=== PATIENT | male | born 1975 | race Caucasian/White ===

== ENCOUNTER 2019-04-28 17:08 | Emergency (ER) | payer SELFPAY ==
[2019-04-28 17:36] VITALS: BP 121/90; PULSE 105; RESP 16; TEMP 37.1; O2SAT 99; BMI 28.7
--- NOTE | 2019-04-28 17:50 | CTR_ITS ---
PROCEDURE INFORMATION: Exam: CT Head Without Contrast Exam date and time: 04/28/2019 6:01 PM Age: 43 years old Clinical indication: Other: Seizures; Additional info: Unknown TECHNIQUE: Imaging protocol: Computed tomography of the head without contrast. Total DLP: 896.72 mGy-cm Radiation optimization: All CT scans at this facility use at least one of these dose optimization techniques: automated exposure control; mA and/or kV adjustment per patient size (includes targeted exams where dose is matched to clinical indication); or iterative reconstruction. COMPARISON: No relevant prior studies available. FINDINGS: Brain: Normal. No hemorrhage. Unremarkable white matter. No mass effect. Ventricles: Normal. No ventriculomegaly. Bones/joints: Unremarkable. No acute fracture. Sinuses: Visualized sinuses are unremarkable. No fluid levels. Mastoid air cells: Visualized mastoid air cells are well aerated. Soft tissues: Unremarkable. CT/CT head wo con* [id number] IMPRESSION: No acute intracranial abnormality. Radiation Dose CTDIVOL = (mGy): DLP = 896.72 (mGy-cm)
[2019-04-28 18:00] LABS: Hematocrit 49.4 % (42.0-52.0); Hemoglobin 16.2 g/dL (11.7-16.6); Mean Corpuscular HGB Conc 32.8 g/dL (30.0-36.0); Mean Corpuscular Volume 97.4 fL (80-94); Platelet Count 360 10^3/cmm (130-400); Red Blood Count 5.07 10^6/uL (4.1-5.3); Red Cell Distribution Width 12.5 % (12.1-15.1); White Blood Count 12.8 10^3/uL (4.0-10.0)
[2019-04-28 18:40] LABS: Alanine Aminotransferase 28 U/L (0-41); Albumin Level 4.7 g/dL (3.5-5.2); Alkaline Phosphatase 108 IU/L (40-130); Anion Gap 16.3 (5-19); Aspartate Amino Transferase 44 U/L (0-40); Blood Urea Nitrogen 20 mg/dL (6-20); Calcium 9.9 mg/Dl (8.6-10.0); Carbon Dioxide 29 mmol/L (22-29); Chloride 100 mmol/L (98-107); Globulin 3.4 g/dL (1.3-4.6); Glomerular Filtration Rate 73.1 mL/min (90-130); Glucose 107 mg/dL (74-109); Potassium 4.3 mmol/L (3.5-5.1); Sodium 141 mmol/L (136-145); Total Bilirubin 0.2 mg/dL (0.15-1.2); Total Protein 8.1 g/dL (6.6-8.7)
[2019-04-28 20:26] LABS: Absolute Eosinophils 0.1 10^3/cmm (0.0-0.7); Absolute Segmented Neutrophil 7.6 10/cmm (1.6-7.1); Eosinophils 1 %; Lymphocytes 29 %; Monocytes Absolute 1.3 10^3/cmm (0.1-0.6); Segmented Neutrophils 60 %; Total Cells Counted 100 (0-100)
[2019-04-28 20:27] LABS: Platelet Estimate Normal (Normal)
[2019-04-28 22:40] VITALS: BP 172/94; PULSE 105; RESP 18; O2SAT 100
--- NOTE | 2019-04-28 23:05 | ED_ITS ---
HPI - Seizure General: Chief Complaint: Seizure Stated Complaint: possible seizure Time Seen by Provider: 04/28/19 23:05 History of Present Illness: MD complaint: seizure, possible seizure and other (pt states that his muscles tighten up unpredictabley and they hurt after) Seizure History: No Place: Home Associated symptoms: Deny chest pain, chills, fever(s), malaise or rash Review of Systems Const: Denies: fever, chills, body aches or malaise Eyes: Denies: change in vision or blurry vision ENMT: Denies: throat pain or nasal congestion Card: Denies: chest pain or shortness of breath on exertion Resp: Denies: shortness of breath, productive cough or non-productive cough GI: Denies: abdominal pain, nausea or vomiting : Denies: difficulty urinating Musc: Reports: other (muscle spasms that last less than a minute); Denies: extremity pain Skin/Breast: Denies: rash Neuro: Denies: headache Psych: Reports: anxiety (last 4 months since left him, these spasms have happened since them); Denies: depression Aris/Lymph: Denies: easy bruising PFSH ED PFSH: Statuses (acute, chronic, etc) shown below reflect problem list status as previously entered and may not be historically accurate Social History Smoking and tobacco status: former smoker Physical Exam Const: COMMON NORMALS: no apparent distress, average body habitus, oriented x3 and alert HENMT: COMMON NORMALS: normocephalic HEAD & SCALP: normal to inspection and normocephalic FACE & SINUS: normal facial exam Eye: COMMON NORMALS: conjunctivae normal GENERAL EYE: normal appearance of both eyes CONJUNCTIVA: Yes conjunctivae normal Neck/C-Spine: COMMON NORMALS: no JVD Chest: COMMONS NORMALS: inspection of chest normal Resp: COMMON NORMALS: normal respiratory effort and clear to auscultation bilaterally AUSCULTATION: clear to auscultation bilaterally Cardio: COMMON NORMALS: no JVD, regular rate and regular rhythm RATE: regular rate RHYTHM: regular rhythm GI: COMMON NORMALS: normal to inspection, nondistended, normoactive bowel sounds Extremity: COMMON NORMALS: normal to inspection and full ROM Neuro: COMMON NORMALS: oriented x3 and moves all extremities SENSORIUM/ORIENTATION: Yes alert CRANIAL NERVES: Yes CN normal except as noted GAIT: Yes normal gait MOTOR EXAM: strength 5/5 throughout Course Vital Signs: Vital signs: Vital Signs Temperature 98.7 F 04/28/19 17:36 Pulse Rate 105 H 04/28/19 22:40 Respiratory Rate 18 04/28/19 22:40 Blood Pressure 172/94 04/28/19 22:40 Pulse Oximetry 100 04/28/19 22:40 MDM - Seizure MDM Narrative: Medical decision making narrative: [place] [address] CT Scan Report Signed Patient: Ricci Brock JR MR#: [id number] : 1975 Acct:[id number] Age/Sex: 43 / M ADM Date: 04/28/19 Loc: ER Attending Dr: Ordering Physician: Lucas Ashraf DO Date of Service: 04/28/19 Procedure(s): CT head wo con* [id number] Accession Number(s): [id number] cc: Lucas Ashraf DO PROCEDURE INFORMATION: Exam: CT Head Without Contrast Exam date and time: 04/28/2019 6:01 PM Age: 43 years old Clinical indication: Other: Seizures; Additional info: Unknown TECHNIQUE: Imaging protocol: Computed tomography of the head without contrast. Total DLP: 896.72 mGy-cm Radiation optimization: All CT scans at this facility use at least one of these dose optimization techniques: automated exposure control; mA and/or kV adjustment per patient size (includes targeted exams where dose is matched to clinical indication); or iterative reconstruction. COMPARISON: No relevant prior studies available. FINDINGS: Brain: Normal. No hemorrhage. Unremarkable white matter. No mass effect. Ventricles: Normal. No ventriculomegaly. Bones/joints: Unremarkable. No acute fracture. Sinuses: Visualized sinuses are unremarkable. No fluid levels. Mastoid air cells: Visualized mastoid air cells are well aerated. Soft tissues: Unremarkable. CT/CT head wo con* [id number] IMPRESSION: No acute intracranial abnormality. Radiation Dose CTDIVOL = (mGy): DLP = 896.72 (mGy-cm) Dictated By: Janice Chavez 04/28/19 1934 Signed By: Janice Chavez 04/28/19 [id number] Lab Data: Labs: Lab Results 04/28/19 04/28/19 Range/Units 17:55 17:55 WBC 12.8 H (4.0-10.0) 10^3/ uL RBC 5.07 (4.1-5.3) 10^6/u L Hgb 16.2 (11.7-16.6) g/dL Hct 49.4 (42.0-52.0) % MCV 97.4 H (80-94) fL MCH 32.0 (28.0-34.0) pg MCHC 32.8 (30.0-36.0) g/dL RDW 12.5 (12.1-15.1) % Plt Count 360 (130-400) 10^3/c mm MPV 9.0 (7.4-10.4) fL Total Counted 100 (0-100) Segmented Neutroph ils 60 % Lymphocytes (Manua l) 29 % Monocytes (Manual) 10.0 % Absolute Monocytes 1.3 H (0.1-0.6) 10^3/c mm Eosinophils (Manua l) 1 % Absolute Eosinophi ls 0.1 (0.0-0.7) 10^3/c mm Platelet Estimate Normal (Normal) Sodium 141 (136-145) mmol/L Potassium 4.3 (3.5-5.1) mmol/L Chloride 100 (98-107) mmol/L Carbon Dioxide 29 (22-29) mmol/L Anion Gap 16.3 (5-19) BUN 20 (6-20) mg/dL Creatinine 1.1 (0.7-1.2) mg/dL GFR Calculation 73.1 L (90-130) mL/min Glucose 107 (74-109) mg/dL Calcium 9.9 (8.6-10.0) mg/Dl Total Bilirubin 0.2 (0.15-1.2) mg/dL AST 44 H (0-40) U/L ALT 28 (0-41) U/L Alkaline Phosphata se 108 (40-130) IU/L Total Protein 8.1 (6.6-8.7) g/dL Albumin 4.7 (3.5-5.2) g/dL Globulin 3.4 (1.3-4.6) g/dL Discharge Plan Discharge Patient Disposition: Home, Self-Care Clinical Impression: Anxiety Condition: Stable Discharge Activity: Resume usual activity Coding Level of Care Code ED Community Fundraiser for Nawaf Fwcathi Exam Problem Focused
[2019-04-28] MEDS: LORazepam 1 mg Tablet PO (23:36)
[2019-04-29 00:46] VITALS: BP 150/84; PULSE 89; RESP 17; TEMP 36.6; O2SAT 99
== END 2019-04-29 00:49 | disposition home or self-care (01) ==
PROVIDERS: Family Medicine; Emergency Provider Nurse Practitioner Family
DX: F41.9 Anxiety disorder, unspecified (principal); Z87.891 Personal history of nicotine dependence
CPT/HCPCS: 36415; 70450; 80053; 85007; 85027; 99283

== ENCOUNTER 2019-05-24 09:47 | Emergency (ER) | payer SELFPAY ==
[2019-05-24 09:58] VITALS: BMI 30.1
--- NOTE | 2019-05-24 10:22 | W.ED.PSYCH ---
HPI - Psych General: Chief Complaint: Psychiatric Symptoms Stated Complaint: MHE Time Seen by Provider: 05/24/19 10:08 Review of Systems Const: Denies: fever, chills, body aches, change in appetite, fatigue or malaise ENMT: Denies: throat pain, ear pain, nasal discharge or nasal congestion Card: Denies: chest pain, edema, shortness of breath on exertion or shortness of breath when lying down Resp: Denies: shortness of breath, productive cough or non-productive cough GI: Denies: abdominal pain, nausea, vomiting, vomiting blood, coffee grounds in vomit, diarrhea, constipation, bloating, blood in stool or black tarry stool : Denies: flank pain, painful urination, urinary frequency or urinary urgency Skin/Breast: Denies: rash or itching PFSH ED PFSH: Statuses (acute, chronic, etc) shown below reflect problem list status as previously entered and may not be historically accurate Social History Smoking and tobacco status: former smoker Physical Exam Const: COMMON NORMALS: average body habitus, oriented x3 and alert GENERAL APPEARANCE: cooperative, comfortable, well kempt and well developed NUTRITIONAL APPEARANCE: obese ORIENTATION/CONSCIOUSNESS: Yes awake, Yes oriented to person and Yes oriented to place HENMT: COMMON NORMALS: normocephalic, head/scalp atraumatic, EAC's normal, TM's normal bilaterally, external nose normal, moist oral mucous membranes and oropharynx normal HEAD & SCALP: normocephalic and atraumatic NOSE: external nose normal EXTERNAL AUDITORY CANAL: EAC's normal TYMPANIC MEMBRANE: TM's normal bilaterally MOUTH: oral and palatal mucosa normal, lip normal and tongue normal THROAT: posterior oropharynx normal and tonsils normal Eye: COMMON NORMALS: PERRL, EOMs intact bilaterally, conjunctivae normal and no scleral icterus CONJUNCTIVA: Yes conjunctivae normal PUPIL: Yes PERRL Neck/C-Spine: COMMON NORMALS: full ROM, no lymphadenopathy, supple, no meningeal signs and thyroid normal THYROID: thyroid normal and asymmetrical Lymph: LYMPHATIC: no lymphadenopathy noted Resp: COMMON NORMALS: normal respiratory effort, no retractions, no use of accessory muscles and clear to auscultation bilaterally AUSCULTATION: clear to auscultation bilaterally Cardio: COMMON NORMALS: regular rate and regular rhythm RATE: regular rate RHYTHM: regular rhythm HEART SOUNDS: no murmurs GI: COMMON NORMALS: normal to inspection, nondistended, normoactive bowel sounds, soft to palpation and no hepatosplenomegaly PALPATION: Yes soft and Yes no hepatosplenomegaly : COMMON NORMALS: Yes no CVA tenderness BLADDER/KIDNEY EXAM: Yes no CVA tenderness Back/Pelvis: COMMON NORMALS: no CVA tenderness LUMBAR SPINE/LOWER BACK: Yes normal to inspection Extremity: COMMON NORMALS: no clubbing, cyanosis or edema, no calf tenderness and no pedal edema Neuro: COMMON NORMALS: oriented x3 SENSORIUM/ORIENTATION: Yes alert, Yes oriented to person and Yes oriented to place MENINGEAL SIGNS: Yes no meningeal signs Psych: APPEARANCE: Yes well kempt Skin: COMMON NORMALS: no rashes or lesions noted and skin turgor normal GENERAL SKIN EXAM: no rashes or lesions noted and turgor normal Discharge Plan Discharge Patient Disposition: Home, Self-Care Clinical Impression: Headache, variant migraine, Anxiety, Complex partial seizure Condition: Stable Prescriptions: No Action No Known Home Medications RF: 0 Discharge Orders: Discharge Order (Routine); Ordered 05/24/19 Ordered By: Lucas Ashraf Referrals: Iam Jackson MD [Primary Care Provider] - Discharge Diet: Usual diet Discharge Activity: Resume usual activity Activity Restrictions/Additional Instructions: Case management will make arrangements for you to see neurology for seizures. They will also set you up for a sleep deprived EEG. Additionally they will make an appointment for behavioral health for help with anxiety. Discharge Date/Time: 05/24/19 11:26 Coding Level of Care Code ED [employer] Coordinator for Nawaf Patterson
[2019-05-24 10:29] LABS: Add Urine Microscopic? NO
[2019-05-24 10:30] VITALS: O2SAT 98
--- NOTE | 2019-05-24 10:32 | PC.NURSE ---
Patient reports he is anxious, no thoughts of SI/HI. Patient reports seizures as well, last yesterday.
[2019-05-24 10:36] LABS: Bilirubin Urine Neg (NEGATIVE); Blood Urine Neg (Negative); Glucose Urine UA Norm (Normal); Ketones Urine Negative (Negative); Leukocyte Esterase Urine Negative (Negative); Nitrate Urine Negative (Negative); Protein Urine Neg (Negative); Urine Appearance Clear (CLEAR); Urine Color Yellow (Yellow); Urobilinogen Urine 1 mg/dL (Negative)
[2019-05-24 10:39] LABS: Basophils # 0.1 10^3/uL (0.0-0.1); Basophils % 1.7 %; Eosinophils # 0.5 10^3/uL (0.0-0.8); Eosinophils % 5.8 %; Hematocrit 46.1 % (42.0-52.0); Hemoglobin 15.2 g/dL (11.7-16.6); Lymphocytes # 2.5 10^3/uL (0.8-4.8); Lymphocytes % 30.7 %; Mean Corpuscular Hemoglobin 30.3 pg (28.0-34.0); Mean Platelet Volume 9.1 fL (7.4-10.4); Monocytes # 0.7 10^3/uL (0.2-0.9); Monocytes % 8.8 %; Neutrophils # 4.3 10^3/uL (1.8-7.7); Neutrophils % 52.8 %; Nucleated Red Blood Cells % 0 %; Platelet Count 374 10^3/cmm (130-400); Red Blood Count 5.01 10^6/uL (4.1-5.3); Red Cell Distribution Width 11.7 % (12.1-15.1); White Blood Count 8.1 10^3/uL (4.0-10.0)
[2019-05-24 10:51] LABS: Barbiturates Screen Urine Negative (Negative); Benzodiazepines Screen Urine Negative (Negative); Cocaine Screen Urine Negative (Negative); Opiate Screen Urine Negative (Negative); PCP Screen Urine Negative (Negative); THC Screen Urine Positive (Negative)
[2019-05-24 10:55] LABS: Amphetamines Screen Urine Positive (Negative)
[2019-05-24 11:03] LABS: Acetaminophen < 5.0 ug/mL (10-30); Alanine Aminotransferase 18 U/L (0-41); Albumin Level 4.6 g/dL (3.5-5.2); Alcohol Level < 10 mg/dL (0-10); Alkaline Phosphatase 97 IU/L (40-130); Anion Gap 14.7 (5-19); Aspartate Amino Transferase 41 U/L (0-40); Blood Urea Nitrogen 13 mg/dL (6-20); Calcium 9.5 mg/dL (8.5-10.5); Carbon Dioxide 27 mmol/L (22-29); Chloride 101 mmol/L (98-107); Globulin 3.2 g/dL (1.3-4.6); Glomerular Filtration Rate 92.1 mL/min (90-130); Glucose 117 mg/dL (74-109); Potassium 4.7 mmol/L (3.5-5.1); Salicylate < 0.3 mg/dL (3-10); Sodium 138 mmol/L (136-145); Thyroid Stimulating Hormone 1.49 uIU/mL (0.27-4.20); Total Bilirubin 0.3 mg/dL (0.15-1.2); Total Protein 7.8 g/dL (6.6-8.7)
[2019-05-24 11:25] VITALS: BP 135/87; PULSE 92; RESP 20; O2SAT 99
--- NOTE | 2019-05-24 15:42 | DCPLANNER ---
manager training and development was asked to schedule a outpatient sleep deprived EEG for patient, a follow up appointment with Dr. Franks, and to see if patient has a follow up appointment for patient with [facility] scheduled. manager training and development called the office of Dr. Franks, spoke with Jade, a sleep deprived EEG was scheduled for April at 8:00. manager training and development faxed order to Dr. Proctor office. A follow up appointment with Dr. Franks is scheduled for Sunday, July 14, 2019 at 10:[address] Franks. manager training and development called [facility], spoke with Natalie in scheduling, was told that patient did complete his initial assessment, and a follow up appointment is scheduled for patient for Saturday, June 08, 2019 at 8:[address] Segovia. manager training and development called patients makedachar Geni, at [phone], and gave her the appointment information.
--- NOTE | 2019-05-27 14:51 | DCPLANNER ---
Patient did attend appointment scheduled for 05.27.19 for a sleep deprived EEG.
--- NOTE | 2019-06-18 15:36 | DCPLANNER ---
Patient did attend appointment with Dr. Franks. Patient did not attend appointment with [facility].
== END 2019-05-24 11:26 | disposition home or self-care (01) ==
PROVIDERS: Emergency Provider Family Medicine; PCP Family Medicine
DX: G40.209 Localization-related (focal) (partial) symptomatic epilepsy and epileptic syndromes with complex partial seizures, not intractable, without status epilepticus (principal); F41.9 Anxiety disorder, unspecified; G43.809 Other migraine, not intractable, without status migrainosus; Z87.891 Personal history of nicotine dependence
CPT/HCPCS: 36415; 80053; 80307; 81003; 84443; 85025; 99282

== ENCOUNTER → 2019-05-27 08:00 | Outpatient (BNVA) | payer SELFPAY | PROVIDERS: PCP Family Medicine; Referring Provider Family Medicine; Visit Provider Specialist | DX: G40.909 Epilepsy, unspecified, not intractable, without status epilepticus (principal); G40.209 Localization-related (focal) (partial) symptomatic epilepsy and epileptic syndromes with complex partial seizures, not intractable, without status epilepticus | CPT/HCPCS: 95816 ==

== ENCOUNTER → 2019-06-07 10:33 | Outpatient (BNVA) | payer SELFPAY | PROVIDERS: PCP Family Medicine; Referring Provider Family Medicine; Visit Provider Specialist | DX: G40.909 Epilepsy, unspecified, not intractable, without status epilepticus (principal); G43.711 Chronic migraine without aura, intractable, with status migrainosus | CPT/HCPCS: 99204; 99214 ==

== ENCOUNTER 2019-06-14 14:50 | Outpatient (CLI) | payer SELFPAY ==
--- NOTE | 2019-06-14 15:15 | MR_ITS ---
WS: [id number] MRI BRAIN WITHOUT CONTRAST HISTORY: seizure events COMPARISON: None available. TECHNIQUE: Diffusion imaging, multiplanar T1, T2 and FLAIR imaging obtained. High resolution coronal imaging of the temporal lobes. No evidence for acute infarct or hemorrhage. Ryan-white matter differentiation is normal. No remote or acute infarcts are volume loss. Temporal lobes are symmetric bilaterally without volume loss. Ventricles and extra-axial spaces are normal. No inferior displacement of cerebellar tonsils. The sella turcica and pituitary gland are unremarkabl e. Posterior fossa is also unremarkable. Dural venous sinuses and [place] demonstrate no abnormality on this unenhanced studies. Paranasal sinuses: Tiny polyp or mucous retention cyst in the anterior LEFT maxillary sinus. Mastoid air cells: Normal. Calvarium and scalp: Intact. MR/MR head wo con* [id number] IMPRESSION: 1. Unremarkable noncontrast MRI brain. 2. Symmetric appearance of the hippocampal formations.
== END 2019-06-14 14:51 | disposition home or self-care (01) ==
PROVIDERS: PCP Family Medicine; Visit Provider Specialist
DX: R56.9 Unspecified convulsions (principal)
CPT/HCPCS: 70551

== ENCOUNTER 2019-07-04 21:19 | Emergency (ER) | payer SELFPAY ==
[2019-07-04 21:19] VITALS: BP 161/104; PULSE 72; RESP 18; TEMP 37.1; O2SAT 96; BMI 28.7
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
--- NOTE | 2019-07-04 21:49 | CTR_ITS ---
PROCEDURE INFORMATION: Exam: CT Cervical Spine Without Contrast Exam date and time: 07/04/2019 10:09 PM Age: 43 years old Clinical indication: Injury or trauma; Initial encounter; Blunt trauma; Patient HX: Seizure causing PT to fall from single story roof landing on R side on concrete +loc TECHNIQUE: Imaging protocol: Computed tomography images of the cervical spine without contrast. Total DLP: 719.85 mGy-cm Radiation optimization: All CT scans at this facility use at least one of these dose optimization techniques: automated exposure control; mA and/or kV adjustment per patient size (includes targeted exams where dose is matched to clinical indication); or iterative reconstruction. COMPARISON: No relevant prior studies available. FINDINGS: Vertebrae: On axial CT images, no definite acute fracture is visible. Sagittal and coronal reconstructions show no fracture or subluxation. Mild to moderate degenerative disc changes and facet joint arthritis at several levels. Discs/Spinal canal/Neural foramina: No definite/significant disc herniation by CT, MRI could be more sensitive if clinically indicated. Lungs: No significant acute abnormality in the upper lungs. CT/CT cervical spin wo con* [id number] IMPRESSION: 1. No definite acute fracture or subluxation by CT. 2. Other findings discussed above. Radiation Dose CTDIVOL = (mGy): DLP = 719.85 (mGy-cm)
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
[2019-07-04 22:02] VITALS: RESP 16
[2019-07-04] MEDS: sodium chloride 0.9% 1,000 ML 999 ML IV (22:02)
[2019-07-04] MEDS: morphine 4 mg/mL SDV 1 mL IVP (22:02)
[2019-07-04] MEDS: ondansetron 2 mg/ML SDV 2 mL 4 MG IVP (22:02)
[2019-07-04 22:20] LABS: Basophils # 0.1 10^3/uL (0.0-0.1); Eosinophils # 0.5 10^3/uL (0.0-0.8); Eosinophils % 4.8 %; Hematocrit 49.3 % (42.0-52.0); Hemoglobin 15.9 g/dL (11.7-16.6); Lymphocytes % 30.6 %; Mean Corpuscular HGB Conc 32.3 g/dL (30.0-36.0); Mean Corpuscular Hemoglobin 30.4 pg (28.0-34.0); Mean Corpuscular Volume 94.3 fL (80-94); Mean Platelet Volume 9.5 fL (7.4-10.4); Monocytes # 0.8 10^3/uL (0.2-0.9); Monocytes % 7.9 %; Neutrophils # 5.3 10^3/uL (1.8-7.7); Neutrophils % 55.4 %; Nucleated Red Blood Cells % 0 %; Platelet Count 319 10^3/cmm (130-400); Red Blood Count 5.23 10^6/uL (4.1-5.3); Red Cell Distribution Width 11.9 % (12.1-15.1); White Blood Count 9.6 10^3/uL (4.0-10.0)
[2019-07-04 22:27] VITALS: BP 148/102; PULSE 77; RESP 16; O2SAT 99
[2019-07-04 22:37] LABS: Alanine Aminotransferase 28 U/L (0-41); Albumin Level 3.7 g/dL (3.5-5.2); Alkaline Phosphatase 98 IU/L (40-130); Anion Gap 13.3 (5-19); Aspartate Amino Transferase 27 U/L (0-40); Blood Urea Nitrogen 12 mg/dL (6-20); Calcium 9.5 mg/dL (8.5-10.5); Carbon Dioxide 24 mmol/L (22-29); Chloride 106 mmol/L (98-107); Creatine Phosphokinase 108 U/L (39-308); Globulin 3.4 g/dL (1.3-4.6); Glomerular Filtration Rate 105.5 mL/min (90-130); Glucose 100 mg/dL (65-115); Osmolality Calculated 284 mOsm/kg (285-295); Phosphorus 3.8 mg/dL (2.5-4.5); Potassium 4.3 mmol/L (3.5-5.1); Sodium 139 mmol/L (136-145); Total Bilirubin 0.4 mg/dL (0.15-1.2); Total Protein 7.1 g/dL (6.6-8.7)
[2019-07-04 22:38] LABS: Lactate (Lactic Acid level) 0.8 mmol/L (0.5-2.2)
[2019-07-04 22:53] LABS: Alcohol Level < 10 mg/dL (0-10)
[2019-07-04 23:30] VITALS: BP 149/88; PULSE 76; RESP 16; O2SAT 96
[2019-07-05] MEDS: ketorolac 30 mg/mL INJ IVP (00:24)
[2019-07-05 01:14] LABS: Add Urine Microscopic? NO
[2019-07-05 01:23] LABS: Amphetamines Screen Urine Positive (Negative); Barbiturates Screen Urine Negative (Negative); Benzodiazepines Screen Urine Negative (Negative); Cocaine Screen Urine Negative (Negative); Opiate Screen Urine Negative (Negative); PCP Screen Urine Negative (Negative); THC Screen Urine Positive (Negative)
[2019-07-05 01:25] LABS: Bilirubin Urine Neg (NEGATIVE); Blood Urine Neg (Negative); Glucose Urine UA Norm (Normal); Ketones Urine Negative (Negative); Leukocyte Esterase Urine Negative (Negative); Nitrate Urine Negative (Negative); Protein Urine Neg (Negative); Specific Gravity, Urine 1.015 (1.005-1.030); Urine Appearance Clear (CLEAR); Urine Color Yellow (Yellow); Urobilinogen Urine Norm (Negative); pH Urine 7 (5-7)
[2019-07-05 01:34] VITALS: RESP 14; O2SAT 98
[2019-07-05] MEDS: oxyCODONE-APAP 5-325 mg Tablet 2 TAB PO (01:34)
[2019-07-05 01:37] VITALS: BP 126/79; PULSE 74; RESP 14; O2SAT 98
== END 2019-07-05 01:38 | disposition home or self-care (01) ==
PROVIDERS: Emergency Provider Emergency Medicine; PCP Specialist
DX: S06.0X9A Concussion with loss of consciousness of unspecified duration, initial encounter (principal); S90.32XA Contusion of left foot, initial encounter; T14.8XXA Other injury of unspecified body region, initial encounter; R56.9 Unspecified convulsions; F17.210 Nicotine dependence, cigarettes, uncomplicated; W13.2XXA Fall from, out of or through roof, initial encounter; Y92.008 Other place in unspecified non-institutional (private) residence as the place of occurrence of the external cause
CPT/HCPCS: 12345; 70450; 71045; 72125; 72190; 73590; 73630; 80053; 80307; 81003; 82550; 83605; 84100; 85025; 96361; 96374; 96375; 99283; 99284; A9270; J1885; J2270; J2405; J7030

== ENCOUNTER → 2019-07-15 11:32 | Outpatient (BNVA) | payer SELFPAY | PROVIDERS: PCP Specialist; Visit Provider Specialist | DX: R56.9 Unspecified convulsions (principal); G43.711 Chronic migraine without aura, intractable, with status migrainosus; F17.210 Nicotine dependence, cigarettes, uncomplicated | CPT/HCPCS: 99214 ==

== ENCOUNTER 2019-10-27 05:30 | Emergency (ER) | payer SELFPAY ==
[2019-10-27 05:31] VITALS: BP 152/89; PULSE 104; RESP 18; TEMP 36.8; O2SAT 95; BMI 27.8
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
[2019-10-27 06:24] LABS: Add Urine Microscopic? NO
[2019-10-27 06:26] LABS: Basophils # 0.1 10^3/uL (0.0-0.1); Basophils % 0.9 %; Eosinophils # 0.5 10^3/uL (0.0-0.8); Eosinophils % 5.1 %; Hematocrit 42.5 % (42.0-52.0); Hemoglobin 14.5 g/dL (11.7-16.6); Lymphocytes # 3.9 10^3/uL (0.8-4.8); Lymphocytes % 38.3 %; Mean Corpuscular HGB Conc 34.1 g/dL (30.0-36.0); Mean Corpuscular Hemoglobin 31.3 pg (28.0-34.0); Mean Corpuscular Volume 91.6 fL (80-94); Mean Platelet Volume 9.2 fL (7.4-10.4); Monocytes # 0.9 10^3/uL (0.2-0.9); Neutrophils # 4.7 10^3/uL (1.8-7.7); Neutrophils % 46.4 %; Nucleated Red Blood Cells % 0 %; Platelet Count 357 10^3/cmm (130-400); Red Blood Count 4.64 10^6/uL (4.1-5.3); White Blood Count 10.2 10^3/uL (4.0-10.0)
[2019-10-27 06:38] LABS: Bilirubin Urine Neg (NEGATIVE); Blood Urine Neg (Negative); Glucose Urine UA Norm (Normal); Ketones Urine Negative (Negative); Leukocyte Esterase Urine Negative (Negative); Nitrate Urine Negative (Negative); Protein Urine Neg (Negative); Specific Gravity, Urine 1.005 (1.005-1.030); Urine Appearance Clear (CLEAR); Urine Color Yellow (Yellow); Urobilinogen Urine Norm (Negative); pH Urine 5 (5-7)
[2019-10-27 06:42] LABS: Alanine Aminotransferase 18 U/L (0-41); Alkaline Phosphatase 103 IU/L (40-130); Anion Gap 19.3 (5-19); Aspartate Amino Transferase 19 U/L (0-40); Blood Urea Nitrogen 11 mg/dL (6-20); Calcium 9.1 mg/dL (8.5-10.5); Carbon Dioxide 22 mmol/L (22-29); Chloride 102 mmol/L (98-107); Glomerular Filtration Rate 123.1 mL/min (90-130); Glucose 122 mg/dL (65-115); Osmolality Calculated 287 mOsm/kg (285-295); Potassium 3.3 mmol/L (3.5-5.1); Sodium 140 mmol/L (136-145); Total Bilirubin 0.2 mg/dL (0.15-1.2)
[2019-10-27 06:47] LABS: Amphetamines Screen Urine Negative (Negative); Barbiturates Screen Urine Negative (Negative); Benzodiazepines Screen Urine Negative (Negative); Cocaine Screen Urine Negative (Negative); Opiate Screen Urine Negative (Negative); PCP Screen Urine Negative (Negative); THC Screen Urine Negative (Negative)
[2019-10-27] MEDS: lactated ringers 1,000 ML 999 ML IV (06:47)
--- NOTE | 2019-10-27 06:49 | PC.NURSE ---
Patient back to room from xray, put on playground monitor per order.
[2019-10-27 06:51] VITALS: BP 142/86; PULSE 102; RESP 21; O2SAT 97
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
[2019-10-27 08:00] VITALS: BP 115/91; PULSE 95; RESP 17; O2SAT 97
[2019-10-27] MEDS: ketorolac 30 mg/mL INJ IVP (08:07)
[2019-10-27] MEDS: potassium chloride oral liq 20 mEq/15 mL UDC 40 MEQ PO (08:39)
[2019-10-27 08:48] VITALS: BP 139/90; PULSE 98; RESP 17; O2SAT 97
== END 2019-10-27 08:47 | disposition home or self-care (01) ==
PROVIDERS: Emergency Provider Family Medicine
DX: S39.012A Strain of muscle, fascia and tendon of lower back, initial encounter (principal); V89.2XXA Person injured in unspecified motor-vehicle accident, traffic, initial encounter; F17.210 Nicotine dependence, cigarettes, uncomplicated
CPT/HCPCS: 12345; 70450; 71045; 72040; 72100; 72131; 80053; 80306; 81003; 85025; 96365; 96375; 99283; 99284; J1885

== ENCOUNTER 2020-03-08 10:08 | Emergency (ER) | payer SELFPAY ==
[2020-03-08 10:09] VITALS: BP 152/90; PULSE 86; RESP 18; TEMP 36.6; O2SAT 96; BMI 27.8
--- NOTE | 2020-03-08 10:26 | W.ED.ABDPA2 ---
HPI - Abdominal Pain General: Chief Complaint: Abdominal Pain Stated Complaint: ABD PAIN / POSSIBLE SELF HARM Time Seen by Provider: 03/08/20 10:10 History of Present Illness: HPI narrative: 44-year-old male presents with abdominal pain is brought in by EMS. He reports having had multiple seizures he tells me he has had 292 seizures now. He was previously on Effexor for this and ran out about a week and a half ago. He states the Effexor was prescribed to him by Dr. Franks. He reports having had a seizure this morning accompanied by right lower quadrant abdominal pain he has had several episodes in the past where he vomits blood after having a seizures. He tells me he was on Effexor for seizures. I look at Dr. Franks's notes she had prescribed him Effexor for migraines and put him on Depakote for seizures. MD elicited complaint: abdominal pain Onset (ago): hour(s) Pain Consistency: intermittent Location: RLQ Severity: moderate Quality: cramping and stabbing Radiation: none Migration to: no migration Exacerbating factors: movement and other (Palpation) Relieving factors: rest Associated Symptoms: Denies anorexia, belching, bloating, change in bowel habits, change in stool character, chills, coffee ground emesis, constipation, GI cramping, diarrhea, dyspepsia, dysuria, excessive flatus, fever(s), heartburn, hematochezia, hematuria, hematemesis, fecal incontinence, loose stools, melena, nausea, poor appetite, syncope and vomiting Review of Systems Const: Denies: fever(s) or chills ENMT: Denies: throat pain, ear or mastoid pain, nasal discharge or nasal congestion Card: Denies: syncope Resp: Denies: dyspnea, productive cough or non-productive cough GI: Denies: nausea, vomiting, hematemesis, coffee ground emesis, heartburn, diarrhea, constipation, bloating, GI cramping, belching, excessive flatus, fecal incontinence, change in bowel habits, change in stool character, hematochezia or melena : Denies: dysuria or hematuria Skin/Breast: Denies: rash or pruritus PFS ED PFSH: Medical History Chronic migraine without aura, intractable, with status migrainosus Seizure Surgical History History of shoulder surgery Family History Other Diabetes Hypertension Stroke Denies family history of CAD (coronary artery disease) Cancer Social History Smoking and tobacco status: current every day smoker cigarettes Packs smoked per day: 0.5 Alcohol intake: current Alcohol intake frequency: few times a month Alcohol type: wine History of recent travel: No Physical Exam Const: COMMON NORMALS: no acute distress GENERAL APPEARANCE: cooperative and comfortable ORIENTATION/CONSCIOUSNESS: Yes awake, Yes oriented to person, Yes oriented to place and Yes oriented to time HENMT: COMMON NORMALS: normocephalic, atraumatic and hearing grossly normal bilaterally HEAD & SCALP: normocephalic and atraumatic Eye: COMMON NORMALS: Equal, round and reactive pupils present, EOMs intact bilaterally, conjunctivae normal and no scleral icterus CONJUNCTIVA: Yes conjunctivae normal PUPIL: Yes Equal, round and reactive pupils present Neck/C-Spine: COMMON NORMALS: full ROM, no lymphadenopathy, supple and no JVD Lymph: LYMPHATIC: no lymphadenopathy noted and no lymphedema noted Resp: COMMON NORMALS: normal respiratory effort, No retractions, No use of accessory muscles and clear to auscultation bilaterally AUSCULTATION: clear to auscultation bilaterally Cardio: COMMON NORMALS: no JVD, regular rate, regular rhythm and No murmurs present (Cardio) RATE: regular rate RHYTHM: regular rhythm GI: COMMON NORMALS: Soft to palpation and No hepatosplenomegaly present AUSCULTATION: Yes normoactive bowel sounds PALPATION: Yes Soft to palpation, Yes Tenderness to palpation present (GI) Details: RLQ, No Guarding due to palpation present (GI) and Yes No hepatosplenomegaly present Extremity: COMMON NORMALS: normal to inspection, capillary refill normal, no clubbing, cyanosis or edema, no calf tenderness and no pedal edema Neuro: SENSORIUM/ORIENTATION: Yes oriented to person, Yes oriented to place and Yes oriented to time Skin: COMMON NORMALS: no rashes or lesions noted GENERAL SKIN EXAM: no rashes or lesions noted Course Vital Signs: Vital signs: Vital Signs Temperature 97.8 F 03/08/20 10:09 Pulse Rate 86 03/08/20 10:09 Respiratory Rate 18 03/08/20 10:09 Blood Pressure 152/90 03/08/20 10:09 Pulse Oximetry 96 03/08/20 10:09 MDM - Abdominal Pain MDM Narrative: Medical decision making narrative: Reviewed Dr. Franks's notes and discussed with her. She is not been able to see him in our clinic for a few months he was last seen in June she thinks he may have missed a follow-up and that is why he ran out of medication she asked that we refill his Depakote and Effexor for the next couple of months and get him scheduled for a sleep deprived EEG and outpatient follow-up with her. Would like him to get a Depakote level in the interim. We will get him scheduled with a PCP so that they can get that level drawn. Lab Data: Labs: Lab Results 03/08/20 03/08/20 03/08/20 Range/Units 09:50 09:50 10:31 WBC 9.8 (4.0-10.0) 10^3/ uL RBC 4.83 (4.1-5.3) 10^6/u L Hgb 15.1 (11.7-16.6) g/dL Hct 43.6 (42.0-52.0) % MCV 90.3 (80-94) fL MCH 31.3 (28.0-34.0) pg MCHC 34.6 (30.0-36.0) g/dL RDW 11.8 L (12.1-15.1) % Plt Count 342 (130-400) 10^3/c mm MPV 9.5 (7.4-10.4) fL Neut % (Auto) 56.3 % Lymph % (Auto) 26.6 % [place] % (Auto) 11.8 % Eos % (Auto) 4.1 % Baso % (Auto) 1.0 % Neut # (Auto) 5.51 (1.8-7.7) 10^3/u L Lymph # (Auto) 2.6 (0.8-4.8) 10^3/u L [place] # (Auto) 1.2 H (0.2-0.9) 10^3/u L Eos # (Auto) 0.4 (0.0-0.8) 10^3/u L Baso # (Auto) 0.1 (0.0-0.1) 10^3/u L Nucleated RBC % (a uto) 0 % Nucleated RBCs # 0.0 /100WBC Sodium 138 (136-145) mmol/L Potassium 3.4 L (3.5-5.1) mmol/L Chloride 100 (98-107) mmol/L Carbon Dioxide 24 (22-29) mmol/L Anion Gap 17.4 (5-19) BUN 22 H (6-20) mg/dL Creatinine 0.9 (0.7-1.2) mg/dL GFR Calculation 91.7 (90-130) mL/min Glucose 102 (65-115) mg/dL Calculated Osmolal ity 290 (285-295) mOsm/k g Calcium 9.4 (8.5-10.5) mg/dL Total Bilirubin 1.1 (0.15-1.2) mg/dL AST 58 H (0-40) U/L ALT 25 (0-41) U/L Alkaline Phosphata se 94 (40-130) IU/L Total Protein 7.6 (6.6-8.7) g/dL Albumin 4.6 (3.5-5.2) g/dL Globulin 3.0 (1.3-4.6) g/dL Lipase 11 L (13-60) U/L Urine Color Yellow (Yellow) Urine Appearance Clear (CLEAR) Urine pH 5 (5-7) Ur Specific Gravit y 1.030 (1.005-1.030) Urine Protein Neg (Negative) Urine Glucose (UA) Norm (Normal) Urine Ketones 1+ H (Negative) Urine Blood Neg (Negative) Urine Nitrate Negative (Negative) Urine Bilirubin 1+ H (Negative) Urine Urobilinogen 1 H (Negative) mg/dL Ur Leukocyte Diana ase Negative (Negative) Salicylates < 0.3 L (3-10) mg/dL Urine Opiates Scre en (Negative) ng/mL Acetaminophen < 5.0 L (10-30) ug/mL Ur Barbiturates Sc reen (Negative) ng/mL Ur Phencyclidine S crn (Negative) ng/mL Ur Amphetamines Sc reen (Negative) ng/mL U Benzodiazepines Scrn (Negative) ng/mL Urine Cocaine Scre en (Negative) ng/mL U Marijuana (THC) Screen (Negative) ng/mL Ethyl Alcohol < 10 (0-10) mg/dL 03/08/20 Range/Units 10:31 WBC (4.0-10.0) 10^3/ uL RBC (4.1-5.3) 10^6/u L Hgb (11.7-16.6) g/dL Hct (42.0-52.0) % MCV (80-94) fL MCH (28.0-34.0) pg MCHC (30.0-36.0) g/dL RDW (12.1-15.1) % Plt Count (130-400) 10^3/c mm MPV (7.4-10.4) fL Neut % (Auto) % Lymph % (Auto) % [place] % (Auto) % Eos % (Auto) % Baso % (Auto) % Neut # (Auto) (1.8-7.7) 10^3/u L Lymph # (Auto) (0.8-4.8) 10^3/u L [place] # (Auto) (0.2-0.9) 10^3/u L Eos # (Auto) (0.0-0.8) 10^3/u L Baso # (Auto) (0.0-0.1) 10^3/u L Nucleated RBC % (a uto) % Nucleated RBCs # /100WBC Sodium (136-145) mmol/L Potassium (3.5-5.1) mmol/L Chloride (98-107) mmol/L Carbon Dioxide (22-29) mmol/L Anion Gap (5-19) BUN (6-20) mg/dL Creatinine (0.7-1.2) mg/dL GFR Calculation (90-130) mL/min Glucose (65-115) mg/dL Calculated Osmolal ity (285-295) mOsm/k g Calcium (8.5-10.5) mg/dL Total Bilirubin (0.15-1.2) mg/dL AST (0-40) U/L ALT (0-41) U/L Alkaline Phosphata se (40-130) IU/L Total Protein (6.6-8.7) g/dL Albumin (3.5-5.2) g/dL Globulin (1.3-4.6) g/dL Lipase (13-60) U/L Urine Color (Yellow) Urine Appearance (CLEAR) Urine pH (5-7) Ur Specific Gravit y (1.005-1.030) Urine Protein (Negative) Urine Glucose (UA) (Normal) Urine Ketones (Negative) Urine Blood (Negative) Urine Nitrate (Negative) Urine Bilirubin (Negative) Urine Urobilinogen (Negative) mg/dL Ur Leukocyte Diana ase (Negative) Salicylates (3-10) mg/dL Urine Opiates Scre en Negative (Negative) ng/mL Acetaminophen (10-30) ug/mL Ur Barbiturates Sc reen Negative (Negative) ng/mL Ur Phencyclidine S crn Negative (Negative) ng/mL Ur Amphetamines Sc reen Positive H (Negative) ng/mL U Benzodiazepines Scrn Negative (Negative) ng/mL Urine Cocaine Scre en Negative (Negative) ng/mL U Marijuana (THC) Screen Positive H (Negative) ng/mL Ethyl Alcohol (0-10) mg/dL Discharge Plan Discharge Patient Disposition: Home Clinical Impression: Seizure, Chronic migraine without aura, intractable, with status migrainosus, Abdominal pain, Hematemesis of unknown cause Prescriptions: New venlafaxine 150 mg capsule,extended release 24hr 150 mg PO DAILY Qty: 30 RF: 0 Depakote 500 mg tablet,delayed release (DR/EC) 500 mg PO BID Qty: 60 RF: 2 Discontinued ibuprofen 200 mg Tablet 600 mg PO PRN RF: 0 No Action venlafaxine [Effexor XR] 150 mg capsule,extended release 24hr 150 mg PO DAILY Qty: 30 RF: 5 Discharge Orders: Discharge Order (Routine); Ordered 03/08/20 Ordered By: Lucas Ashraf Patient Instructions: Abdominal Pain (ED) Activity Restrictions/Additional Instructions: Case management will get you set up for an outpatient EEG as well as referral to a primary care doctor. Scripts were given to restart your venlafaxine and your Depakote. They will also get you follow-up with Dr. Franks. You will need to be seen for a colonoscopy and EGD through your primary care provider as well. Return if you have any problems. Coding Level of Care Code ED Double End Tenoner Operator for Chg Fwd Exam Comprehensive
[2020-03-08 10:36] LABS: Basophils # 0.1 10^3/uL (0.0-0.1); Eosinophils # 0.4 10^3/uL (0.0-0.8); Eosinophils % 4.1 %; Hematocrit 43.6 % (42.0-52.0); Hemoglobin 15.1 g/dL (11.7-16.6); Lymphocytes # 2.6 10^3/uL (0.8-4.8); Lymphocytes % 26.6 %; Mean Corpuscular HGB Conc 34.6 g/dL (30.0-36.0); Mean Corpuscular Hemoglobin 31.3 pg (28.0-34.0); Mean Corpuscular Volume 90.3 fL (80-94); Mean Platelet Volume 9.5 fL (7.4-10.4); Monocytes # 1.2 10^3/uL (0.2-0.9); Monocytes % 11.8 %; Neutrophils # 5.51 10^3/uL (1.8-7.7); Neutrophils % 56.3 %; Nucleated Red Blood Cells % 0 %; Platelet Count 342 10^3/cmm (130-400); Red Blood Count 4.83 10^6/uL (4.1-5.3); Red Cell Distribution Width 11.8 % (12.1-15.1); White Blood Count 9.8 10^3/uL (4.0-10.0)
--- NOTE | 2020-03-08 10:47 | CTR_ITS ---
PROCEDURE INFORMATION: Exam: CT Abdomen And Pelvis With Contrast Exam date and time: 03/08/2020 11:25 AM Age: 44 years old Clinical indication: Abdominal pain; Additional info: Abd pain TECHNIQUE: Imaging protocol: Computed tomography of the abdomen and pelvis with intravenous contrast. Radiation optimization: All CT scans at this facility use at least one of these dose optimization techniques: automated exposure control; mA and/or kV adjustment per patient size (includes targeted exams where dose is matched to clinical indication); or iterative reconstruction. Contrast material: OMNI 300; Contrast volume: 95 ml; Contrast route: INTRAVENOUS (IV); COMPARISON: CT abdomen pelvis w con* [id number] 06/06/2017 12:38 PM RADIATION DOSE METRICS: Total DLP (mGy-cm): 715 FINDINGS: Lungs: Mild interstitial prominence and trace dependent airspace disease. Liver: No focal hepatic mass. Gallbladder and bile ducts: No cholelithiasis or biliary ductal dilatation. Pancreas: No pancreatic mass or ductal dilatation. Spleen: Enlarged spleen measuring 13.1 cm in length. Adrenal glands: Unremarkable adrenals. Kidneys and ureters: Normal renal morphology. No hydronephrosis. Stomach and bowel: Mild wall thickening in the nondistended stomach. Small bowel dilatation without a transition zone. Colonic dilatation and prominent stool. Diverticula, without pericolonic inflammation. Mild rectal wall thickening. Appendix: No acute appendicitis. Intraperitoneal space: No free fluid. Vasculature: Normal caliber of the abdominal aorta. Mild IVC dilatation. Lymph nodes: Subcentimeter lymph nodes. Urinary bladder: Nondistended bladder with mild wall thickening. Reproductive: Unremarkable as visualized. Bones/joints: Degenerative change . Calcified disc bulging at the L5-S1 level. CT/CT abdomen pelvis w con* [id number] IMPRESSION: 1. Colonic dilatation and mild rectal wall thickening. 2. Mild wall thickening in the nondistended stomach. 3. Additional findings as described above. Radiation Dose CTDIVOL = (mGy): DLP = 715 (mGy-cm)
[2020-03-08 10:52] LABS: Add Urine Microscopic? NO
[2020-03-08 10:53] LABS: Alanine Aminotransferase 25 U/L (0-41); Albumin Level 4.6 g/dL (3.5-5.2); Alkaline Phosphatase 94 IU/L (40-130); Anion Gap 17.4 (5-19); Aspartate Amino Transferase 58 U/L (0-40); Blood Urea Nitrogen 22 mg/dL (6-20); Calcium 9.4 mg/dL (8.5-10.5); Carbon Dioxide 24 mmol/L (22-29); Chloride 100 mmol/L (98-107); Glomerular Filtration Rate 91.7 mL/min (90-130); Glucose 102 mg/dL (65-115); Lipase 11 U/L (13-60); Osmolality Calculated 290 mOsm/kg (285-295); Potassium 3.4 mmol/L (3.5-5.1); Sodium 138 mmol/L (136-145); Total Bilirubin 1.1 mg/dL (0.15-1.2); Total Protein 7.6 g/dL (6.6-8.7)
[2020-03-08 10:56] LABS: Acetaminophen < 5.0 ug/mL (10-30); Alcohol Level < 10 mg/dL (0-10); Salicylate < 0.3 mg/dL (3-10)
[2020-03-08 11:05] LABS: Amphetamines Screen Urine Positive (Negative); Barbiturates Screen Urine Negative (Negative); Benzodiazepines Screen Urine Negative (Negative); Cocaine Screen Urine Negative (Negative); Opiate Screen Urine Negative (Negative); PCP Screen Urine Negative (Negative); THC Screen Urine Positive (Negative)
[2020-03-08 11:06] LABS: Bilirubin Urine 1+ (Negative); Blood Urine Neg (Negative); Glucose Urine UA Norm (Normal); Ketones Urine 1+ (Negative); Leukocyte Esterase Urine Negative (Negative); Nitrate Urine Negative (Negative); Protein Urine Neg (Negative); Urine Appearance Clear (CLEAR); Urine Color Yellow (Yellow); Urobilinogen Urine 1 mg/dL (Negative); pH Urine 5 (5-7)
[2020-03-08] MEDS: iohexol 300 mg/mL 100 mL Btl IV (11:28)
--- NOTE | 2020-03-08 14:16 | DCPLANNER ---
Addendum entered by Ellyn Rosas 03/09/20 11:44: food service manager faxed order for sleep deprived EEG to Dr. Proctor office. Original Note: food service manager was asked to schedule an out patient EEG for patient, and a follow up appointment for patient with Dr. Franks. food service manager called clearance coordinator, Flaco Mendoza, left voicemail for her with patients information. food service manager was also asked to get patient established with a primary care physician. food service manager called the office of Dr. Antonio, spoke with Chantelle, a follow up appointment was scheduled for , March 16, 2020 at 2:30, with Dr. Antonio. food service manager called patient at phone number [phone], unable to speak with patient at this time, a voicemail was left for patient to return case management director phone call.
--- NOTE | 2020-03-13 13:37 | DCPLANNER ---
Fifi Mendoza from Dr. Proctor office called spring encaser and stated that an outpatient sleep deprived EEG is scheduled for Sunday, April 05, 2020 at 8:00 and then a follow up appointment with Dr. Franks scheduled for Saturday, April 11, 2020 at 10:30. Clinic will call patient with appointment information.
--- NOTE | 2020-04-14 07:38 | DCPLANNER ---
Patient had a follow up appointment scheduled for 03.16.[address] Antonio - patient did attend appointment Patient had an EEG scheduled for 04.05.20 - patient did not attend appointment Patient had a follow up appointment scheduled for 04.11.[address] Franks - patient did not attend appointment.
== END 2020-03-08 13:26 | disposition home or self-care (01) ==
PROVIDERS: Emergency Provider Family Medicine
DX: R56.9 Unspecified convulsions (principal); G43.711 Chronic migraine without aura, intractable, with status migrainosus; R10.31 Right lower quadrant pain; K92.0 Hematemesis; Z79.1 Long term (current) use of non-steroidal anti-inflammatories (NSAID); F17.210 Nicotine dependence, cigarettes, uncomplicated; Z91.14 Patient's other noncompliance with medication regimen
CPT/HCPCS: 12345; 74177; 80053; 80306; 80307; 81003; 83690; 85025; 96361; 96374; 99281; 99284; Q9967

== ENCOUNTER 2020-06-19 02:53 | Emergency (ER) | payer SELFPAY ==
[2020-06-19 02:57] VITALS: BP 210/120; PULSE 79; RESP 20; TEMP 36.9; O2SAT 98; BMI 29.2
[2020-06-19 03:02] VITALS: BP 168/116; PULSE 85; RESP 17; O2SAT 97
--- NOTE | 2020-06-19 03:17 | ED_ITS ---
HPI - Allergic Reaction General: Chief complaint: Allergic Reaction Stated complaint: poss allergic reaction Time Seen by Provider: 06/19/20 03:06 History of Present Illness: HPI narrative: 44-year-old gentleman whom 1 to 1.5 hours ago was in bed eating almonds. He noticed sometime after that he began to get itchy, especially around his shoulders. He felt his lower lip swelling. He began to have a little bit of chest discomfort as well. He presents with the symptoms. He has not had reactions like this in the past to almonds or any other food. He denies burning any rash yesterday or any other new exposures. MD complaint: allergic reaction, hives and facial swelling Onset (ago): minute(s) Exposure: unknown Associated symptoms: Reports facial swelling and nausea; Deny abdominal pain, difficulty breathing, dysphagia, hoarseness, tongue swelling or vomiting Severity: moderate Treatment prior to arrival: none Previous Allergic Reaction History: none Review of Systems Const: Denies: fever(s), chills or body aches Eyes: Denies: change in vision ENMT: Denies: throat pain, odynophagia, hoarseness or nasal congestion Card: Reports: chest pain (mild); Denies: palpitations or irregular heart rhythm Resp: Denies: dyspnea, productive cough, non-productive cough or wheezing GI: Reports: nausea; Denies: abdominal pain, vomiting or dysphagia All/Imm: Reports: facial swelling; Denies: tongue swelling PFSH ED PFSH: Medical History Chronic migraine without aura, intractable, with status migrainosus Seizure Surgical History History of shoulder surgery Family History Other Diabetes Hypertension Stroke Denies family history of CAD (coronary artery disease) Cancer Social History Smoking and tobacco status: current every day smoker cigarettes Packs smoked per day: 0.5 Alcohol intake: current Alcohol intake frequency: few times a month Alcohol type: wine History of recent travel: No Physical Exam Const: GENERAL APPEARANCE: well developed ORIENTATION/CONSCIOUSNESS: Yes oriented to person, Yes oriented to place and Yes oriented to time HENMT: COMMON NORMALS: external ears normal and Normal external nose present HEAD & SCALP: no scalp tenderness FACE & SINUS: normal facial exam and edema NOSE: Normal external nose present and No nasal discharge present EXTERNAL EAR: Yes external ears normal MOUTH: Normal oral and palatal mucosa present, tongue normal and lip abnormal (Moderate swelling) TEETH & GINGIVA: no abnormal tooth and associated gingiva THROAT: posterior oropharynx normal; no peritonsillar mass Eye: COMMON NORMALS: Equal, round and reactive pupils present, EOMs intact bilaterally and conjunctivae normal EYELID: eyelids normal CONJUNCTIVA: Yes conjunctivae normal PUPIL: Yes Equal, round and reactive pupils present Neck/C-Spine: COMMON NORMALS: full ROM GENERAL: No tracheal deviation CERVICAL SPINE: Yes normal cervical lordosis and No Cervical spine tenderness Chest: COMMONS NORMALS: normal inspection of the chest CHEST: No tenderness Resp: COMMON NORMALS: clear to auscultation bilaterally EFFORT & INSPECTION: No tachypneic, No respiratory distress, No retractions, No uses accessory muscles and No tracheal deviation AUSCULTATION: clear to auscultation bilaterally, no rhonchi, no wheezes and lung sounds not diminished Cardio: COMMON NORMALS: regular rate and regular rhythm RATE: regular rate RHYTHM: regular rhythm HEART SOUNDS: no murmurs PERIPHERAL PULSES: radial pulses present GI: INSPECTION: No abdominal distension AUSCULTATION: No Hyperactive bowel sounds present and No Hypoactive bowel sounds present PALPATION: No Guarding due to palpation present (GI) and No Rigid due to palpation PERCUSSION: no dullness to percussion and no tympanic to percussion Neuro: SENSORIUM/ORIENTATION: Yes oriented to person, Yes oriented to place and Yes oriented to time Psych: COMMON NORMALS: mental status grossly normal Skin: GENERAL SKIN EXAM: other (urticaria present) Course Vital Signs: Vital signs: Vital Signs Temperature 98.4 F 06/19/20 02:57 Pulse Rate 85 06/19/20 03:02 Respiratory Rate 17 06/19/20 03:02 Blood Pressure 168/116 06/19/20 03:02 Pulse Oximetry 97 06/19/20 03:02 MDM - Allergic Reaction MDM Narrative: Medical decision making narrative: Patient given Solu-Medrol, Pepcid, Benadryl, and subcutaneous epinephrine. Essentially immediate improvement following epinephrine. Chest x-ray is negative. We will observe for a bit, and release. Discharge Plan Discharge Patient Disposition: Home Clinical Impression: Allergic reaction Qualifiers: Encounter type: initial encounter Qualified Code(s): T78.40XA - Allergy, unspecified, initial encounter Angioedema Qualifiers: Encounter type: initial encounter Qualified Code(s): T78.3XXA - Angioneurotic edema, initial encounter Condition: Stable Prescriptions: New Medrol (Jose De Jesus) 4 mg tablets,dose pack See Rx Instructions .ROUTE .COMPLEX Qty: 21 RF: 0 Discharge Orders: Discharge ED (Routine); Ordered 06/19/20 Ordered By: Yon Pierre Discharge Diet: As Directed Discharge Activity: Increase activity as tolerated Patient Instructions: Allergic Reaction, Angioedema (ED) Activity Restrictions/Additional Instructions: Take Benadryl, 25 mg at least 3 times daily for the next 2 days. Prescription medication as directed. Return for worsening facial swelling, shortness of breath, chest or throat tightness, change in voice, any other concerning symptoms. Consider not eating almonds or other nuts until you are sure it is safe. 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
--- NOTE | 2020-06-19 03:22 | XR_ITS ---
WS: [id number] Exam: XR chest 1V portable [id number] Date/Time of Exam: 06/19/2020 3:24 AM Reason For Exam: cp Comparison 10/27/2019. Findings: The lungs are clear and fully expanded. Costophrenic angles are sharp. No infiltrates. Bronchovascula r relief appears normal. Cardiac silhouette is unremarkable. Bony elements are intact. XR/XR chest 1V portable [id number] IMPRESSION: Unremarkable chest radiograph.
[2020-06-19] MEDS: diphenhydrAMINE 50 mg/mL SDV 1mL IVP (03:24)
[2020-06-19] MEDS: famotidine 20 mg/2 mL INJ 40 MG IVP (03:26)
[2020-06-19] MEDS: EPINEPHrine 1 mg/mL INJ 0.4 MG SUBCUT (03:30)
[2020-06-19 04:56] VITALS: BP 128/68; PULSE 69; RESP 16; TEMP 36.9; O2SAT 98
== END 2020-06-19 04:56 | disposition home or self-care (01) ==
PROVIDERS: Emergency Provider Emergency Medicine
DX: T78.3XXA Angioneurotic edema, initial encounter (principal); T78.40XA Allergy, unspecified, initial encounter; F17.210 Nicotine dependence, cigarettes, uncomplicated
CPT/HCPCS: 71045; 96372; 96374; 96375; 99283; J0171; J1200; J2930; J3490

== ENCOUNTER → 2020-11-14 11:56 | Outpatient (BNVA) | payer OTHER, SELFPAY | PROVIDERS: Visit Provider Nurse Practitioner Family | DX: Z20.822 Contact with and (suspected) exposure to COVID-19 (principal) | CPT/HCPCS: 87635 ==

== ENCOUNTER 2020-11-25 15:09 | Emergency (ER) | payer SELFPAY ==
[2020-11-25 15:39] VITALS: BP 138/83; PULSE 111; RESP 20; TEMP 37.7; O2SAT 97; BMI 29.2
--- NOTE | 2020-11-25 16:04 | XRR_ITS ---
PROCEDURE INFORMATION: Exam: XR Chest Exam date and time: 11/25/2020 4:04 PM Age: 44 years old Clinical indication: Cough; Additional info: Dyspnea/cough/ flu like SX TECHNIQUE: Imaging protocol: XR of the chest. Views: 1 view. COMPARISON: CR XR chest 1V portable [id number] 06/19/2020 3:28 AM FINDINGS: Lungs: Unremarkable. No consolidation. Pleural spaces: Unremarkable. No pleural effusion. No pneumothorax. Heart/Mediastinum: Unremarkable. No cardiomegaly. Bones/joints: Unremarkable. XR/XR chest 1V portable [id number] IMPRESSION: No acute findings.
[2020-11-25] MEDS: sodium chloride 0.9% 1,000 ML 999 ML IV (16:05)
[2020-11-25] MEDS: LORazepam 2 mg/mL INJ 1 mL 1 MG IVP (16:05)
--- NOTE | 2020-11-25 16:08 | ECG_ITS ---
[facility] Test Date: 2020-11-25 Pat Name: Ricci Brock Department: Room: Gender: Male Paper Roller: : 1975 Requested By: Hira Calderon Order Number: [id number] Geovany MD: ETIENNE RANGEL Measurements Intervals [place] Rate: 101 P: 34 MI: 138 QRS: 6 QRSD: 83 T: 70 QT: 316 QTc: 411 Interpretive Statements SINUS TACHYCARDIA NONSPECIFIC T-WAVE ABNORMALITY ABNORMAL RHYTHM ECG No previous ECG available for comparison Electronically Signed On 11-25-2020 20:28:01 CDT by ETIENNE RANGEL [id number]
[2020-11-25 16:27] VITALS: PULSE 104; RESP 20; O2SAT 98
[2020-11-25 16:40] LABS: Basophils # 0.1 10^3/uL (0.0-0.1); Basophils % 0.8 %; Eosinophils # 0.1 10^3/uL (0.0-0.8); Eosinophils % 0.9 %; Hematocrit 49.3 % (42.0-52.0); Hemoglobin 16.6 g/dL (11.7-16.6); Lymphocytes # 1.4 10^3/uL (0.8-4.8); Lymphocytes % 18.4 %; Mean Corpuscular HGB Conc 33.7 g/dL (30.0-36.0); Mean Corpuscular Hemoglobin 30.6 pg (28.0-34.0); Mean Platelet Volume 10.5 fL (7.4-10.4); Monocytes # 1.4 10^3/uL (0.2-0.9); Monocytes % 18.2 %; Neutrophils # 4.54 10^3/uL (1.8-7.7); Neutrophils % 61.4 %; Nucleated Red Blood Cells % 0 %; Platelet Count 284 10^3/cmm (130-400); Red Blood Count 5.42 10^6/uL (4.1-5.3); Red Cell Distribution Width 11.9 % (12.1-15.1); White Blood Count 7.4 10^3/uL (4.0-10.0)
[2020-11-25 17:13] LABS: Alanine Aminotransferase 39 U/L (0-41); Albumin Level 4.3 g/dL (3.5-5.2); Alkaline Phosphatase 95 IU/L (40-130); Anion Gap 14.9 (5-19); Aspartate Amino Transferase 31 U/L (0-40); Blood Urea Nitrogen 8 mg/dL (6-20); Calcium 8.9 mg/dL (8.5-10.5); Carbon Dioxide 24 mmol/L (22-29); Chloride 102 mmol/L (98-107); Globulin 3.1 g/dL (1.3-4.6); Glomerular Filtration Rate 122.5 mL/min (90-130); Glucose 90 mg/dL (65-115); Lipase 19 U/L (13-60); Osmolality Calculated 282 mOsm/kg (285-295); Potassium 3.9 mmol/L (3.5-5.1); Sodium 137 mmol/L (136-145); Total Bilirubin 0.2 mg/dL (0.15-1.2); Total Protein 7.4 g/dL (6.6-8.7)
[2020-11-25 17:50] LABS: SARS Covid-2 Antigen Positive (Negative)
[2020-11-25 19:04] LABS: Troponin(5th) Baseline 6 ng/L (0-15)
[2020-11-25 19:06] LABS: Lactate (Lactic Acid level) 1.2 mmol/L (0.5-2.2)
--- NOTE | 2020-11-25 19:23 | CTR_ITS ---
PROCEDURE INFORMATION: Exam: CT Chest With Contrast; Diagnostic Exam date and time: 11/25/2020 7:23 PM Age: 44 years old Clinical indication: Abdominal pain; Upper; Other: High flank; Patient HX: Covid+ w SOB and b flank pain; Additional info: Covid/dyspnea TECHNIQUE: Imaging protocol: Diagnostic computed tomography of the chest with contrast. Radiation optimization: All CT scans at this facility use at least one of these dose optimization techniques: automated exposure control; mA and/or kV adjustment per patient size (includes targeted exams where dose is matched to clinical indication); or iterative reconstruction. Contrast material: OMNI 300; Contrast volume: 95 ml; Contrast route: INTRAVENOUS (IV); COMPARISON: CR (CHEST, ) 11/25/2020 4:45 PM RADIATION DOSE METRICS: Total DLP (mGy-cm): FINDINGS: Lungs: Unremarkable. No consolidation. No masses. Pleural spaces: Unremarkable. No pneumothorax. No pleural effusion. Heart: Unremarkable. No cardiomegaly. No pericardial effusion. Aorta: Unremarkable. No aortic aneurysm. Lymph nodes: Unremarkable. No enlarged lymph nodes. Bones/joints: Degenerative change is identified in the spine. There is no evidence for acute fracture or malalignment. Soft tissues: Unremarkable. IMPRESSION: There are no acute concerning abnormalities. PROCEDURE INFORMATION: Exam: CT Abdomen And Pelvis With Contrast Exam date and time: 11/25/2020 7:23 PM Age: 44 years old Clinical indication: Abdominal pain; Upper; Other: High flank; Patient HX: Covid+ w SOB and b flank pain; Additional info: Covid/dyspnea TECHNIQUE: Imaging protocol: Computed tomography of the abdomen and pelvis with contrast. Radiation optimization: All CT scans at this facility use at least one of these dose optimization techniques: automated exposure control; mA and/or kV adjustment per patient size (includes targeted exams where dose is matched to clinical indication); or iterative reconstruction. Contrast material: OMNI 300; Contrast volume: 95 ml; Contrast route: INTRAVENOUS (IV); COMPARISON: CR (CHEST, ) 11/25/2020 4:45 PM RADIATION DOSE METRICS: Total DLP (mGy-cm): 1999.45 FINDINGS: Liver: Normal. No mass. Gallbladder and bile ducts: Normal. No calcified stones. No ductal dilation. Pancreas: Normal. No ductal dilation. Spleen: Normal. No splenomegaly. Adrenal glands: Normal. No mass. Kidneys and ureters: Normal. No hydronephrosis. Stomach and bowel: Colonic diverticula are present although there are no CT findings to suggest diverticulitis. No bowel obstruction or wall thickening. Appendix: The appendix is visualized and appears normal. Intraperitoneal space: Unremarkable. No free air. No significant fluid collection. Vasculature: Unremarkable. No abdominal aortic aneurysm. Lymph nodes: Unremarkable. No enlarged lymph nodes. Urinary bladder: Unremarkable as visualized. Reproductive: Unremarkable as visualized. Bones/joints: Unremarkable. No acute fracture. Soft tissues: Unremarkable. CT/CT chest abd pel w con* IMPRESSION: There are no acute concerning abnormalities. Radiation Dose CTDIVOL = (mGy): DLP = 2000.45~2000.45 (mGy-cm)
[2020-11-25 19:59] LABS: C Reactive Protein 2.6 mg/L (0.0-4.9)
[2020-11-25] MEDS: iohexol 300 mg/mL 100 mL Btl IV (20:06)
--- NOTE | 2020-11-25 21:16 | ED_ITS ---
HPI - Male Genitourinary General: Chief complaint: Urogenital-Male Stated complaint: SEVERE LOWER ABD PAINS Time Seen by Provider: 11/25/20 15:53 History of Present Illness: HPI Narrative: The patient is a 44-year-old male who comes to the ER complaining of bilateral flank pain, nonproductive cough, mild shortness of breath, low-grade temperature for the past couple days. He has not been swabbed for Covid and has not received his vaccinations. He is satting 98% on room air. No respiratory distress. No history of urinary tract infections though he is complaining of bilateral flank pain. Duration: constant Severity: moderate Quality: aching Review of Systems General: Reports: 10 or more systems reviewed and unremarkable except in HPI and below Const: Reports: fever(s), chills, body aches and fatigue Eyes: Denies: change in vision, blurry vision or eye redness ENMT: Denies: throat pain, swelling of lips/tongue, ear or mastoid pain or nasal congestion Card: Denies: chest pain, palpitations, irregular heart rhythm, edema, dyspnea on exertion or orthopnea Resp: Reports: dyspnea and non-productive cough; Denies: productive cough GI: Denies: abdominal pain, diarrhea or GI cramping : Reports: flank pain; Denies: urinary frequency or urinary urgency Musc: Denies: neck pain, back pain, extremity pain, joint pain, joint redness, limited range of motion or muscle weakness Skin/Breast: Denies: rash, pruritus, erythema, skin pain or skin tenderness Neuro: Denies: headache(s), numbness in extremities, weakness in extremities, sensory changes, difficulty walking, dizziness, confusion or Slurred speech present Psych: Denies: anxiety or depression Endo: Denies: polyuria All/Imm: Denies: urticaria, throat swelling or tongue swelling PFSH ED PFSH: Medical History Chronic migraine without aura, intractable, with status migrainosus Seizure Surgical History History of shoulder surgery Family History Other Diabetes Hypertension Stroke Denies family history of CAD (coronary artery disease) Cancer Social History Smoking and tobacco status: current every day smoker cigarettes Packs smoked per day: 0.5 Alcohol intake: current Alcohol intake frequency: few times a month Alcohol type: wine History of recent travel: No Physical Exam Const: COMMON NORMALS: no acute distress, average body habitus, patient oriented x3, no limitations, healthy appearing, alert and well nourished GENERAL APPEARANCE: cooperative, comfortable, well kempt and well developed ORIENTATION/CONSCIOUSNESS: Yes awake, Yes oriented to person, Yes oriented to place and Yes oriented to time HENMT: COMMON NORMALS: normocephalic, external ears normal and Normal external nose present HEAD & SCALP: normal to inspection and normocephalic NOSE: Normal external nose present EXTERNAL EAR: Yes external ears normal MOUTH: Normal oral and palatal mucosa present THROAT: posterior oropharynx normal Eye: COMMON NORMALS: Equal, round and reactive pupils present and EOMs intact bilaterally GENERAL EYE: appearance normal, both eyes and all related structures PUPIL: Yes Equal, round and reactive pupils present Neck/C-Spine: COMMON NORMALS: full ROM, no lymphadenopathy, no meningeal signs and no JVD GENERAL: Yes normal visual inspection Lymph: LYMPHATIC: no lymphadenopathy noted Chest: COMMONS NORMALS: normal inspection of the chest and normal palpation of entire chest wall Resp: COMMON NORMALS: normal respiratory effort, No retractions, No use of accessory muscles, clear to auscultation bilaterally and percussion normal EFFORT & INSPECTION: Yes able to speak in complete sentences AUSCULTATION: clear to auscultation bilaterally PERCUSSION: percussion normal Cardio: COMMON NORMALS: no JVD, regular rate, regular rhythm, S1 normal heart sound present, S2 normal heart sound present and Peripheral pulses 2+ throughout RATE: regular rate RHYTHM: regular rhythm HEART SOUNDS: S1 normal heart sound present and S2 normal heart sound present PERIPHERAL PULSES: Peripheral pulses 2+ throughout GI: COMMON NORMALS: Normal to inspection, nondistended, normoactive bowel sounds present, Soft to palpation, non-tender and no masses INSPECTION: Yes normal to inspection PALPATION: Yes Soft to palpation : COMMON NORMALS: Yes no CVA tenderness BLADDER/KIDNEY EXAM: Yes no CVA tenderness Back/Pelvis: COMMON NORMALS: no CVA tenderness, thoracic and lumbar spine normal to inspection, no thoracic nor lumbar tenderness and thoraco-lumbar ROM normal Extremity: COMMON NORMALS: normal to inspection, full ROM, capillary refill normal, no joint enlargement and no pedal edema GENERAL: Yes normal exam except as noted Neuro: COMMON NORMALS: patient oriented x3, CN's II-XII intact bilaterally, moves all extremities, no focal motor deficits, no sensory deficits noted and gait normal SENSORIUM/ORIENTATION: Yes alert, Yes oriented to person, Yes oriented to place and Yes oriented to time MENINGEAL SIGNS: Yes no meningeal signs Psych: COMMON NORMALS: mental status grossly normal, Normal thought process present, cooperative, normal affect and speech normal APPEARANCE: Yes well kempt ATTITUDE: Yes calm SPEECH: Yes normal speech THOUGHT PROCESS: Normal thought process present Skin: COMMON NORMALS: no rashes or lesions noted GENERAL SKIN EXAM: no rashes or lesions noted Course Vital Signs: Vital signs: Vital Signs Temperature 99.9 F H 11/25/20 15:39 Pulse Rate 104 H 11/25/20 16:27 Respiratory Rate 20 H 11/25/20 16:27 Blood Pressure 138/83 11/25/20 15:39 Pulse Oximetry 98 11/25/20 16:27 MDM - Male MDM Narrative: Medical decision making narrative: The patient came in complaining of bilateral flank pain. Also has mild nonproductive cough, temperature of 99.9 and he says he is not been feeling well with a nonproductive cough for the past couple days. He swabbed positive for Covid. Satting 98% on room air in no respiratory distress. Chest x-ray normal. He is recovering quite well. We will discharge him with azithromycin and steroid pack. ER with worsening symptoms at any time. Tylenol for fever. Self quarantine at home. Drink lots of fluids. ER with worsening symptoms at any time. Primary care physician in a couple days. I also recommended he buy a pulse oximeter to monitor his saturation and if it dips to 90 or below return to the ER at any time. Lab Data: Labs: Lab Results 11/25/20 11/25/20 11/25/20 Range/Units 16:02 16:02 16:02 WBC 7.4 (4.0-10.0) 10^3/ uL RBC 5.42 H (4.1-5.3) 10^6/u L Hgb 16.6 (11.7-16.6) g/dL Hct 49.3 (42.0-52.0) % MCV 91.0 (80-94) fL MCH 30.6 (28.0-34.0) pg MCHC 33.7 (30.0-36.0) g/dL RDW 11.9 L (12.1-15.1) % Plt Count 284 (130-400) 10^3/c mm MPV 10.5 H (7.4-10.4) fL Neut % (Auto) 61.4 % Lymph % (Auto) 18.4 % Butts % (Auto) 18.2 % Eos % (Auto) 0.9 % Baso % (Auto) 0.8 % Neut # (Auto) 4.54 (1.8-7.7) 10^3/u L Lymph # (Auto) 1.4 (0.8-4.8) 10^3/u L Butts # (Auto) 1.4 H (0.2-0.9) 10^3/u L Eos # (Auto) 0.1 (0.0-0.8) 10^3/u L Baso # (Auto) 0.1 (0.0-0.1) 10^3/u L Nucleated RBC % (a uto) 0 % Nucleated RBCs # 0.0 /100WBC D-Dimer 0.40 (0-0.59) ug/mIFE U Sodium 137 (136-145) mmol/L Potassium 3.9 (3.5-5.1) mmol/L Chloride 102 (98-107) mmol/L Carbon Dioxide 24 (22-29) mmol/L Anion Gap 14.9 (5-19) BUN 8 (6-20) mg/dL Creatinine 0.7 (0.7-1.2) mg/dL GFR Calculation 122.5 (90-130) mL/min Glucose 90 (65-115) mg/dL Calculated Osmolal ity 282 L (285-295) mOsm/k g Lactate (0.5-2.2) mmol/L Calcium 8.9 (8.5-10.5) mg/dL Total Bilirubin 0.2 (0.15-1.2) mg/dL AST 31 (0-40) U/L ALT 39 (0-41) U/L Alkaline Phosphata se 95 (40-130) IU/L Troponin T Baselin e (0-15) ng/L C-Reactive Protein (0.0-4.9) mg/L Total Protein 7.4 (6.6-8.7) g/dL Albumin 4.3 (3.5-5.2) g/dL Globulin 3.1 (1.3-4.6) g/dL Lipase 19 (13-60) U/L SARS-CoV-2 Ag (Rap id) (Negative) 11/25/20 11/25/20 11/25/20 Range/Units 16:02 16:02 16:02 WBC (4.0-10.0) 10^3/ uL RBC (4.1-5.3) 10^6/u L Hgb (11.7-16.6) g/dL Hct (42.0-52.0) % MCV (80-94) fL MCH (28.0-34.0) pg MCHC (30.0-36.0) g/dL RDW (12.1-15.1) % Plt Count (130-400) 10^3/c mm MPV (7.4-10.4) fL Neut % (Auto) % Lymph % (Auto) % Butts % (Auto) % Eos % (Auto) % Baso % (Auto) % Neut # (Auto) (1.8-7.7) 10^3/u L Lymph # (Auto) (0.8-4.8) 10^3/u L Butts # (Auto) (0.2-0.9) 10^3/u L Eos # (Auto) (0.0-0.8) 10^3/u L Baso # (Auto) (0.0-0.1) 10^3/u L Nucleated RBC % (a uto) % Nucleated RBCs # /100WBC D-Dimer (0-0.59) ug/mIFE U Sodium (136-145) mmol/L Potassium (3.5-5.1) mmol/L Chloride (98-107) mmol/L Carbon Dioxide (22-29) mmol/L Anion Gap (5-19) BUN (6-20) mg/dL Creatinine (0.7-1.2) mg/dL GFR Calculation (90-130) mL/min Glucose (65-115) mg/dL Calculated Osmolal ity (285-295) mOsm/k g Lactate 1.2 (0.5-2.2) mmol/L Calcium (8.5-10.5) mg/dL Total Bilirubin (0.15-1.2) mg/dL AST (0-40) U/L ALT (0-41) U/L Alkaline Phosphata se (40-130) IU/L Troponin T Baselin e 6 (0-15) ng/L C-Reactive Protein 2.6 (0.0-4.9) mg/L Total Protein (6.6-8.7) g/dL Albumin (3.5-5.2) g/dL Globulin (1.3-4.6) g/dL Lipase (13-60) U/L SARS-CoV-2 Ag (Rap id) (Negative) 11/25/20 Range/Units 16:10 WBC (4.0-10.0) 10^3/ uL RBC (4.1-5.3) 10^6/u L Hgb (11.7-16.6) g/dL Hct (42.0-52.0) % MCV (80-94) fL MCH (28.0-34.0) pg MCHC (30.0-36.0) g/dL RDW (12.1-15.1) % Plt Count (130-400) 10^3/c mm MPV (7.4-10.4) fL Neut % (Auto) % Lymph % (Auto) % Butts % (Auto) % Eos % (Auto) % Baso % (Auto) % Neut # (Auto) (1.8-7.7) 10^3/u L Lymph # (Auto) (0.8-4.8) 10^3/u L Butts # (Auto) (0.2-0.9) 10^3/u L Eos # (Auto) (0.0-0.8) 10^3/u L Baso # (Auto) (0.0-0.1) 10^3/u L Nucleated RBC % (a uto) % Nucleated RBCs # /100WBC D-Dimer (0-0.59) ug/mIFE U Sodium (136-145) mmol/L Potassium (3.5-5.1) mmol/L Chloride (98-107) mmol/L Carbon Dioxide (22-29) mmol/L Anion Gap (5-19) BUN (6-20) mg/dL Creatinine (0.7-1.2) mg/dL GFR Calculation (90-130) mL/min Glucose (65-115) mg/dL Calculated Osmolal ity (285-295) mOsm/k g Lactate (0.5-2.2) mmol/L Calcium (8.5-10.5) mg/dL Total Bilirubin (0.15-1.2) mg/dL AST (0-40) U/L ALT (0-41) U/L Alkaline Phosphata se (40-130) IU/L Troponin T Baselin e (0-15) ng/L C-Reactive Protein (0.0-4.9) mg/L Total Protein (6.6-8.7) g/dL Albumin (3.5-5.2) g/dL Globulin (1.3-4.6) g/dL Lipase (13-60) U/L SARS-CoV-2 Ag (Rap id) Positive H (Negative) Discharge Plan Discharge Patient Disposition: Home Clinical Impression: COVID-19 Condition: Stable Prescriptions: New Medrol (Jose De Jesus) 4 mg tablets,dose pack See Rx Instructions .ROUTE .COMPLEX Qty: 21 RF: 0 albuterol sulfate 90 mcg/actuation HFA aerosol inhaler 2 inh inhalation Q6H PRN (Reason: shortness of breath or wheezing) 30 Days RF: 0 azithromycin 250 mg tablet See Rx Instructions .ROUTE .COMPLEX Qty: 6 RF: 0 No Action Tylenol Extra Strength 500 mg Tablet 1,000 mg PO PRN RF: 0 Day-Quil Gelcaps 2 cap PO Q6H PRN (Reason: Congestion) RF: 0 Discharge Orders: Discharge ED (Routine); Ordered 11/25/20 Ordered By: Hira Calderon Discharge Diet: Advance as tolerated Discharge Activity: Resume usual activity Patient Instructions: Opioid Safety, Upper Respiratory Infection - Adult Activity Restrictions/Additional Instructions: You have COVID-19. Thankfully you are breathing well and not requiring oxygen. Please take the antibiotics and steroids prescribed to help you recover from this and drink lots of fluids. Take Tylenol for fevers and return to the ER at anytime with worsening symptoms or shortness of breath. You may use a pulse oximeter pick 1 up from a pharmacy to check your oxygen levels at home and if it dips to 90 please return to the ER at any time. Also be sure to follow-up with your primary care physician in a few days to monitor improvement of your symptoms. Coding Level of Care Code ED [employer]man for Nawaf Patterson
[2020-11-25] MEDS: dexamethasone 10 mg/mL INJ 6 MG IVP (21:24)
[2020-11-25] MEDS: acetaminophen 500 mg Tablet 1000 MG PO (21:24)
[2020-11-25] MEDS: cefTRIAXone 1,000 mg SDV 1000 MG IM (21:25)
[2020-11-25 21:39] VITALS: BP 136/78; PULSE 78; RESP 18; TEMP 37; O2SAT 96
== END 2020-11-25 21:41 | disposition home or self-care (01) ==
PROVIDERS: Physician Assistant; Emergency Provider Family Medicine
DX: U07.1 COVID-19 (principal); F17.210 Nicotine dependence, cigarettes, uncomplicated
CPT/HCPCS: 71045; 71260; 74177; 80053; 83605; 83690; 84484; 85025; 85378; 86140; 87040; 87205; 87426; 93005; 96361; 96372; 96375; 99284; J0696; J1100; J2060; J7030; Q9967

== ENCOUNTER 2020-12-02 19:43 | Emergency (ER) | payer SELFPAY ==
[2020-12-02 19:54] VITALS: BP 122/80; PULSE 113; RESP 24; TEMP 36.8; O2SAT 96; BMI 29.2
--- NOTE | 2020-12-02 20:00 | W.ED.CHESTPA ---
HPI - Chest Pain General: Chief Complaint: Chest Pain Stated Complaint: CP/ SOB/ COVID+ Time Seen by Provider: 12/02/20 19:54 History of Present Illness: HPI narrative: Patient is a 45-year-old male past medical history of seizure and migraine. He is here with complaints of chest tightness. States that pain is at the top of his sternum in the midline. Worse after coughing. It does radiate bilaterally to both of his shoulders. This occurred first this afternoon at rest. It waxes and wanes in intensity between a mild to moderate. He has not taken any medicines for this yet. He has not had any nausea or diaphoresis. Diagnosed with Covid on the of this month. Feels that this is a result of that. Has not had any hemoptysis or pain in does state he has some mild pain in his back. Denies fevers chills nausea vomiting diarrhea shortness of breath altered mental status syncope or rash has had a cough and chest pain Review of Systems General: Reports: 10 or more systems reviewed and unremarkable except in HPI and below PFSH ED PFSH: Medical History Chronic migraine without aura, intractable, with status migrainosus Seizure Surgical History History of shoulder surgery Family History Other Diabetes Hypertension Stroke Denies family history of CAD (coronary artery disease) Cancer Social History Smoking and tobacco status: current every day smoker cigarettes Packs smoked per day: 0.5 Alcohol intake: current Alcohol intake frequency: few times a month Alcohol type: wine History of recent travel: No Physical Exam Const: COMMON NORMALS: no acute distress, average body habitus and patient oriented x3 HENMT: COMMON NORMALS: normocephalic and atraumatic HEAD & SCALP: normocephalic and atraumatic Eye: COMMON NORMALS: Equal, round and reactive pupils present and EOMs intact bilaterally PUPIL: Yes Equal, round and reactive pupils present Chest: COMMONS NORMALS: normal inspection of the chest Resp: COMMON NORMALS: normal respiratory effort and No retractions Cardio: COMMON NORMALS: regular rate, regular rhythm and No murmurs present (Cardio) RATE: regular rate RHYTHM: regular rhythm GI: COMMON NORMALS: Normal to inspection, nondistended, normoactive bowel sounds present, Soft to palpation and non-tender PALPATION: Yes Soft to palpation Extremity: COMMON NORMALS: normal to inspection and full ROM Neuro: COMMON NORMALS: patient oriented x3, CN's II-XII intact bilaterally, moves all extremities and no focal motor deficits Psych: COMMON NORMALS: mental status grossly normal Skin: COMMON NORMALS: no rashes or lesions noted, no wounds and turgor normal GENERAL SKIN EXAM: no rashes or lesions noted and turgor normal Course ED course: Patient has low suspicion for ACS. Does not have any risk factors. No previous heart disease no diabetes or hypertension does not smoke. Feel this is partly due to anxiety but also some shortness of breath and a globus sensation from him coughing. May be some muscle skeletal pain from that. Having said we will go ahead and work him up for cardiac events. EKG troponin chest x-ray regular labs. Patient had a negative troponin and 2-hour troponin after that was negative as well. As noted having symptoms no EKG changes. Will this is more musculoskeletal from cough as well as anxiety. Will not discharge him at this time Vital Signs: Vital signs: Vital Signs Temperature 98.2 F 12/02/20 19:54 Pulse Rate 117 H 12/02/20 22:00 Respiratory Rate 17 12/02/20 22:00 Blood Pressure 138/93 12/02/20 22:00 Pulse Oximetry 97 12/02/20 22:00 MDM - Chest Pain MDM Narrative: Medical decision making narrative: Patient is hemodynamically stable low suspicion for ACS given his symptoms and initial findings. But again we will go ahead and work him up. EKG normal chest x-ray appears Covid pneumonia but nothing bacterial or any superinfection. Lab Data: Labs: Lab Results 12/02/20 12/02/20 12/02/20 Range/Units 20:05 20:05 20:05 WBC 5.3 (4.0-10.0) 10^3/ uL RBC 4.74 (4.1-5.3) 10^6/u L Hgb 14.6 (11.7-16.6) g/dL Hct 42.3 (42.0-52.0) % MCV 89.2 (80-94) fL MCH 30.8 (28.0-34.0) pg MCHC 34.5 (30.0-36.0) g/dL RDW 12.0 L (12.1-15.1) % Plt Count 242 (130-400) 10^3/c mm MPV 9.9 (7.4-10.4) fL Neut % (Auto) 56.3 % Lymph % (Auto) 31.9 % [place] % (Auto) 11.0 % Eos % (Auto) 0.2 % Baso % (Auto) 0.2 % Neut # (Auto) 2.97 (1.8-7.7) 10^3/u L Lymph # (Auto) 1.7 (0.8-4.8) 10^3/u L [place] # (Auto) 0.6 (0.2-0.9) 10^3/u L Eos # (Auto) 0.0 (0.0-0.8) 10^3/u L Baso # (Auto) 0.0 (0.0-0.1) 10^3/u L Nucleated RBC % (a uto) 0 % Nucleated RBCs # 0.0 /100WBC PT 12.80 (12.1-14.9) SECO NDS INR 0.94 (0.8-1.2) APTT 32.8 (23.9-36.7) SECO NDS Sodium 139 (136-145) mmol/L Potassium 3.3 L (3.5-5.1) mmol/L Chloride 104 (98-107) mmol/L Carbon Dioxide 20 L (22-29) mmol/L Anion Gap 18.2 (5-19) BUN 12 (6-20) mg/dL Creatinine 0.6 L (0.7-1.2) mg/dL GFR Calculation 145.7 H (90-130) mL/min Glucose 90 (65-115) mg/dL Calculated Osmolal ity 287 (285-295) mOsm/k g Calcium 8.3 L (8.5-10.5) mg/dL Total Bilirubin 0.4 (0.15-1.2) mg/dL AST 50 H (0-40) U/L ALT 38 (0-41) U/L Alkaline Phosphata se 82 (40-130) IU/L Troponin T Baselin e (0-15) ng/L Troponin T 120 Min tetlin (0-15) ng/L Delta Troponin T (0-10) ABS# Total Protein 6.6 (6.6-8.7) g/dL Albumin 3.6 (3.5-5.2) g/dL Globulin 3.0 (1.3-4.6) g/dL 12/02/20 12/02/20 Range/Units 20:05 21:57 WBC (4.0-10.0) 10^3/ uL RBC (4.1-5.3) 10^6/u L Hgb (11.7-16.6) g/dL Hct (42.0-52.0) % MCV (80-94) fL MCH (28.0-34.0) pg MCHC (30.0-36.0) g/dL RDW (12.1-15.1) % Plt Count (130-400) 10^3/c mm MPV (7.4-10.4) fL Neut % (Auto) % Lymph % (Auto) % [place] % (Auto) % Eos % (Auto) % Baso % (Auto) % Neut # (Auto) (1.8-7.7) 10^3/u L Lymph # (Auto) (0.8-4.8) 10^3/u L [place] # (Auto) (0.2-0.9) 10^3/u L Eos # (Auto) (0.0-0.8) 10^3/u L Baso # (Auto) (0.0-0.1) 10^3/u L Nucleated RBC % (a uto) % Nucleated RBCs # /100WBC PT (12.1-14.9) SECO NDS INR (0.8-1.2) APTT (23.9-36.7) SECO NDS Sodium (136-145) mmol/L Potassium (3.5-5.1) mmol/L Chloride (98-107) mmol/L Carbon Dioxide (22-29) mmol/L Anion Gap (5-19) BUN (6-20) mg/dL Creatinine (0.7-1.2) mg/dL GFR Calculation (90-130) mL/min Glucose (65-115) mg/dL Calculated Osmolal ity (285-295) mOsm/k g Calcium (8.5-10.5) mg/dL Total Bilirubin (0.15-1.2) mg/dL AST (0-40) U/L ALT (0-41) U/L Alkaline Phosphata se (40-130) IU/L Troponin T Baselin e 6 (0-15) ng/L Troponin T 120 Min tetlin 6.00 (0-15) ng/L Delta Troponin T 0 (0-10) ABS# Total Protein (6.6-8.7) g/dL Albumin (3.5-5.2) g/dL Globulin (1.3-4.6) g/dL Imaging Data^: CXR: My impression: Mild bilateral groundglass opacities tickling the lower lobes consistent with Covid diagnosis. No obvious effusions or consolidation. No pneumothorax EKG Data^: EKG 1: Attestation: I personally reviewed and interpreted this EKG as follows: EKG interpretation date: 12/02/20 EKG interpretation time: 21:05 Prior EKG tracings: not available for review Interpretation: Normal sinus rhythm no evidence of ischemia or infarct rate 101 intervals normal axis normal Discharge Plan Discharge Patient Disposition: Home Clinical Impression: Atypical chest pain Condition: Stable Prescriptions: No Action Tylenol Extra Strength 500 mg Tablet 1,000 mg PO PRN RF: 0 Day-Quil Gelcaps 2 cap PO Q6H PRN (Reason: Congestion) RF: 0 Medrol (Jose De Jesus) 4 mg tablets,dose pack See Rx Instructions .ROUTE .COMPLEX Qty: 21 RF: 0 albuterol sulfate 90 mcg/actuation HFA aerosol inhaler 2 inh inhalation Q6H PRN (Reason: shortness of breath or wheezing) 30 Days RF: 0 azithromycin 250 mg tablet See Rx Instructions .ROUTE .COMPLEX Qty: 6 RF: 0 Discharge Orders: Discharge ED (Routine); Ordered 12/02/20 Ordered By: David Powell Discharge Activity: Resume usual activity Patient Instructions: Chest Pain - Noncardiac Activity Restrictions/Additional Instructions: Follow-up with your primary care provider in 3 to 5 days. Return the emergency department with any new or worsening symptoms including chest pain that is more in your left side radiates across her chest to her back accompanied by shortness of breath sweating or nausea. Coding Level of Care Code ED Professor Of Business for Chg Fwd Exam Comprehensive
--- NOTE | 2020-12-02 20:01 | ECG_ITS ---
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 Measurements Intervals [place] Rate: 101 P: 28 [place]: 108 QRS: 37 QRSD: 86 T: 40 QT: 360 QTc: 468 Interpretive Statements SINUS TACHYCARDIA WITH SHORT WY INTERVAL NONSPECIFIC T-WAVE ABNORMALITY Compared to ECG 11/25/2020 16:36:15 Short W[place] interval now present T-wave abnormality still present Electronically Signed On 12-03-2020 12:14:55 CDT by Andrew Franco M.D. [id number]
--- NOTE | 2020-12-02 20:01 | XRR_ITS ---
PROCEDURE INFORMATION: Exam: XR Chest Exam date and time: 12/02/2020 8:01 PM Age: 45 years old Clinical indication: Pain; On breathing; Additional info: Chest pain TECHNIQUE: Imaging protocol: XR of the chest. Views: 1 view. COMPARISON: CT chest abd pel w con* 11/25/2020 8:02 PM FINDINGS: Lungs: There are subtle ill-defined opacities at the lung bases. Pleural spaces: Unremarkable. No pleural effusion. No pneumothorax. Heart/Mediastinum: Unremarkable. No cardiomegaly. Bones/joints: Unremarkable. XR/XR chest 1V portable [id number] IMPRESSION: Subtle ill-defined opacities at the lung bases are nonspecific and may represent atelectatic change. Consider PA and lateral views of the chest versus CT scan for further evaluation if pneumonia is suspected.
[2020-12-02] MEDS: aspirin 81 mg Chew Tablet 324 MG PO (20:13)
[2020-12-02 20:16] LABS: Basophils % 0.2 %; Eosinophils % 0.2 %; Hematocrit 42.3 % (42.0-52.0); Hemoglobin 14.6 g/dL (11.7-16.6); Lymphocytes # 1.7 10^3/uL (0.8-4.8); Lymphocytes % 31.9 %; Mean Corpuscular HGB Conc 34.5 g/dL (30.0-36.0); Mean Corpuscular Hemoglobin 30.8 pg (28.0-34.0); Mean Corpuscular Volume 89.2 fL (80-94); Mean Platelet Volume 9.9 fL (7.4-10.4); Monocytes # 0.6 10^3/uL (0.2-0.9); Neutrophils # 2.97 10^3/uL (1.8-7.7); Neutrophils % 56.3 %; Nucleated Red Blood Cells % 0 %; Platelet Count 242 10^3/cmm (130-400); Red Blood Count 4.74 10^6/uL (4.1-5.3); White Blood Count 5.3 10^3/uL (4.0-10.0)
[2020-12-02 20:29] LABS: INR 0.94 (0.8-1.2)
[2020-12-02 20:30] LABS: Partial Thromboplastin Time 32.8 SECONDS (23.9-36.7)
[2020-12-02 20:39] VITALS: BP 146/81; PULSE 104; RESP 18; O2SAT 98
[2020-12-02 20:43] LABS: Troponin(5th) Baseline 6 ng/L (0-15)
[2020-12-02 20:45] LABS: Alanine Aminotransferase 38 U/L (0-41); Albumin Level 3.6 g/dL (3.5-5.2); Alkaline Phosphatase 82 IU/L (40-130); Anion Gap 18.2 (5-19); Aspartate Amino Transferase 50 U/L (0-40); Blood Urea Nitrogen 12 mg/dL (6-20); Calcium 8.3 mg/dL (8.5-10.5); Carbon Dioxide 20 mmol/L (22-29); Chloride 104 mmol/L (98-107); Glomerular Filtration Rate 145.7 mL/min (90-130); Glucose 90 mg/dL (65-115); Osmolality Calculated 287 mOsm/kg (285-295); Sodium 139 mmol/L (136-145); Total Bilirubin 0.4 mg/dL (0.15-1.2); Total Protein 6.6 g/dL (6.6-8.7)
[2020-12-02 20:50] LABS: Potassium 3.3 mmol/L (3.5-5.1)
[2020-12-02 22:00] VITALS: BP 138/93; PULSE 117; RESP 17; O2SAT 97
--- NOTE | 2020-12-02 22:02 | PC.NURSE ---
Patient given ice chips. No complaints of CP. RR even and nonlabored. No acute distress is noted.
[2020-12-02 22:56] LABS: Troponin 5 2HR Delta 0 ABS# (0-10)
[2020-12-02 23:17] VITALS: BP 134/90; PULSE 114; RESP 16
== END 2020-12-02 23:19 | disposition home or self-care (01) ==
PROVIDERS: Emergency Provider Family Medicine
DX: R07.89 Other chest pain (principal); F17.210 Nicotine dependence, cigarettes, uncomplicated
CPT/HCPCS: 71045; 80053; 84484; 85025; 85610; 85730; 93005; 99284

== ENCOUNTER 2021-04-23 11:39 | Emergency (ER) | payer MEDICAID, SELFPAY ==
[2021-04-23 12:13] VITALS: BP 141/83; PULSE 92; RESP 16; TEMP 36.6; O2SAT 95; BMI 32.1
--- NOTE | 2021-04-23 12:31 | US_ITS ---
WS: [id number] INDICATION: Spider bite TECHNIQUE: Ultrasound soft tissue left antecubital space FINDINGS: Ultrasound soft tissue in the area of concern. Complex fluid collection compatible with abs cess measuring 4.4 x 2.7 x 1.0 cm with internal echogenic mobile debris. Associated soft tissue thick ening. US/US soft tissue/extremity [id number] IMPRESSION: Antecubital Abscess described above
--- NOTE | 2021-04-23 12:32 | W.ED.SKABFB ---
HPI - Skin/Abscess/Foreign Bdy General: Chief complaint: General Medical Stated complaint: spider bite Time Seen by Provider: 04/23/21 12:18 Source: patient and family Mode of arrival: ambulatory Limitations: no limitations History of Present Illness: HPI narrative: Patient is a 45-year-old male who presents to ED today with a complaint of a possible spider bite to his left arm that he began noticing approximately 4 days ago. He states area was initially very red and warm to the touch and was accompanied with subjective fevers and chills. Patient states the redness and warmth have subsided but he still has quite a bit of swelling and discomfort. Area is just above left AC space. Patient reports previous drug use but nothing recently. No recent blood draw/IV placement. complaint: abscess/boil Onset (ago): day(s) Tetanus up to date: yes Location: LUE Severity: moderate Pain Consistency: constant Relieving factors: none Exacerbating factors: none Context: none Associated symptoms: Reports chills and fever(s) Treatments prior to arrival: none Review of Systems Const: Reports: fever(s) and chills; Denies: body aches, change in appetite, change in weight, fatigue or malaise Card: Denies: chest pain Resp: Denies: dyspnea Musc: Reports: extremity pain and extremity swelling; Denies: joint pain, joint swelling, joint redness or joint warmth Skin/Breast: Reports: new lesions Neuro: Denies: numbness in extremities, weakness in extremities or sensory changes PFSH ED PFSH: Medical History Chronic migraine without aura, intractable, with status migrainosus Seizure Surgical History History of shoulder surgery Family History Other Diabetes Hypertension Stroke Denies family history of CAD (coronary artery disease) Cancer Social History Smoking and tobacco status: current every day smoker cigarettes Packs smoked per day: 0.5 Alcohol intake: current Alcohol intake frequency: few times a month Alcohol type: wine History of recent travel: No Physical Exam Const: COMMON NORMALS: no acute distress, patient oriented x3, no limitations and alert GENERAL APPEARANCE: cooperative NUTRITIONAL APPEARANCE: overweight ORIENTATION/CONSCIOUSNESS: Yes awake, Yes oriented to person, Yes oriented to place and Yes oriented to time Extremity: GENERAL: Yes normal exam except as noted OTHER: pt has a quarter sized erythematous raised semi-fluctuant lesion just above L AC space; there is about 2 inches of surrounding swelling and induration w/o redness or warmth; no lymphangitic streaking Neuro: COMMON NORMALS: patient oriented x3, moves all extremities, no focal motor deficits and no sensory deficits noted SENSORIUM/ORIENTATION: Yes alert, Yes oriented to person, Yes oriented to place and Yes oriented to time Skin: NARRATIVE SKIN EXAM: see extremity assessment for pertinent skin findings Procedures Abscess I/D Site: upper extremity Side (if applicable): left Local Anesthetic: lidocaine 1% and with epi Amount of anesthesia used (mL): 3.0 Technique: incised with #11 blade Amount of fluid expressed (mL): 3 Irrigation: Yes Packing used?: plain Course Vital Signs: Vital signs: Vital Signs Temperature 98 F 04/23/21 12:13 Pulse Rate 92 04/23/21 12:13 Respiratory Rate 16 04/23/21 12:13 Blood Pressure 141/83 04/23/21 12:13 Pulse Oximetry 95 04/23/21 12:13 MDM - Skin/Abscess/Foreign Bdy MDM Narrative: Medical decision making narrative: US showing soft tissue abscess. Abscess was incised and drained with purulent material expressed. Culture obtained. Wound was packed. Patient was given IV antibiotics here and will be placed on doxycycline. He has an allergy to sulfa drugs. Strict return to ED precautions given regarding worsening abscess. If abscess clinically improves at home he may remove the packing in 72 hours. Labs overall look okay. WBC at 10.8. CRP scantly elevated at 5.6. He has not tachycardic or febrile. Lab Data: Attestation: I reviewed the patient's lab results. Labs: Lab Results 04/23/21 04/23/21 12:40 12:40 WBC 10.8 10^3/uL H 10 ^3/uL (4.0-10.0) RBC 4.87 10^6/uL 10^6 /uL (4.1-5.3) Hgb 15.1 g/dL g/dL (11.7-16.6) Hct 44.6 % % (42.0-52.0) MCV 91.6 fl fl (80-94) MCH 31.0 pg pg (28.0-34.0) MCHC 33.9 g/dL g/dL (30.0-36.0) RDW 12.6 % % (12.1-15.1) Plt Count 352 10^3/cmm 10^3 /cmm (130-400) MPV 9.3 fL fL (7.4-10.4) Neut % (Auto) 55.2 % % Lymph % (Auto) 27.7 % % [place] % (Auto) 6.8 % % Eos % (Auto) 4.8 % % Baso % (Auto) 1.0 % % Neut # (Auto) 5.96 10^3/uL 10^3 /uL (1.8-7.7) Lymph # (Auto) 3.0 10^3/uL 10^3/ uL (0.8-4.8) [place] # (Auto) 0.7 10^3/uL 10^3/ uL (0.2-0.9) Eos # (Auto) 0.5 10^3/uL 10^3/ uL (0.0-0.8) Baso # (Auto) 0.1 10^3/uL 10^3/ uL (0.0-0.1) Nucleated RBC % (a uto) 0 % % Nucleated RBCs # 0.0 /100WBC /100W BC Sodium 141 mmol/L mmol/L (136-145) Potassium 4.0 mmol/L mmol/L (3.5-5.1) Chloride 106 mmol/L mmol/L (98-107) Carbon Dioxide 23 mmol/L mmol/L (22-29) Anion Gap 16.0 (5-19) BUN 13 mg/dL mg/dL (6-20) Creatinine 0.6 mg/dL L mg/dL (0.7-1.2) GFR Calculation 145.7 mL/min H mL /min (90-130) Glucose 127 mg/dL H mg/dL (65-115) Calculated Osmolal ity 294 mOsm/kg mOsm/ kg (285-295) Calcium 8.8 mg/dL mg/dL (8.5-10.5) Total Bilirubin 0.2 mg/dL mg/dL (0.15-1.2) AST 18 U/L U/L (0-40) ALT 24 U/L U/L (0-41) Alkaline Phosphata se 86 IU/L IU/L (40-130) C-Reactive Protein 5.6 mg/L H mg/L (0.0-4.9) Total Protein 7.4 g/dL g/dL (6.6-8.7) Albumin 3.9 g/dL g/dL (3.5-5.2) Globulin 3.5 g/dL g/dL (1.3-4.6) Imaging Data^: US UE soft tissue: Radiologist's impression: [place] [address] [id number] ReportSigned Patient: Ricci Brock JrUnit #: [id number]: 1975Acct#:[id number]/Sex: 45 / MADM Date: 04/23/21Loc: ERRoom/Bed:Attending Dr: Ordering Provider/Ordering MD: Kim Parry Date of Service: 04/23/21 Procedure(s): US soft tissue/extremity 15240 Accession Number(s): [id number] Report Number: [id number] WS: [id number] INDICATION: Spider bite TECHNIQUE: Ultrasound soft tissue left antecubital space FINDINGS: Ultrasound soft tissue in the area of concern. Complex fluid collection compatible with abscess measuring 4.4 x 2.7 x 1.0 cm with internal echogenic mobile debris. Associated soft tissue thickening. US/US soft tissue/extremity [id number] IMPRESSION: Antecubital Abscess described above Dictated By:Madi Panchal MDSigned By:Madi Panchal MDSigned Date/Time:04/23/21 1326DD/ 1324 Discharge Plan Discharge Patient Disposition: Home Clinical Impression: Abscess of arm, left Condition: Stable Prescriptions: New doxycycline monohydrate 100 mg capsule 100 mg PO Q12H 10 Days Qty: 20 RF: 0 No Action Tylenol Extra Strength 500 mg Tablet 1,000 mg PO PRN RF: 0 Day-Quil Gelcaps 2 cap PO Q6H PRN (Reason: Congestion) RF: 0 Medrol (Jose De Jesus) 4 mg tablets,dose pack See Rx Instructions .ROUTE .COMPLEX Qty: 21 RF: 0 azithromycin 250 mg tablet See Rx Instructions .ROUTE .COMPLEX Qty: 6 RF: 0 Discharge Orders: Discharge ED (Routine); Ordered 04/23/21 Ordered By: Kim Parry Patient Instructions: Abscess (ED), Abscess Incision and Drainage (DC) Activity Restrictions/Additional Instructions: Please monitor your abscess for worsening symptoms such as worsening redness, swelling, increased drainage, red streaking, or fevers. If you have been on antibiotics for over 48 hours and continue to worsen you need to immediately return to the emergency department for re-evaluation. As we discussed packing may be removed in 72 hours if abscess continues to improve on antibiotics. Coding Level of Care Code ED Pinion Staker for Nawaf Fwd Exam Expanded Problem Focused
[2021-04-23 12:51] LABS: Basophils # 0.1 10^3/uL (0.0-0.1); Eosinophils # 0.5 10^3/uL (0.0-0.8); Eosinophils % 4.8 %; Hematocrit 44.6 % (42.0-52.0); Hemoglobin 15.1 g/dL (11.7-16.6); Lymphocytes % 27.7 %; Mean Corpuscular HGB Conc 33.9 g/dL (30.0-36.0); Mean Corpuscular Volume 91.6 fl (80-94); Mean Platelet Volume 9.3 fL (7.4-10.4); Monocytes # 0.7 10^3/uL (0.2-0.9); Monocytes % 6.8 %; Neutrophils # 5.96 10^3/uL (1.8-7.7); Neutrophils % 55.2 %; Nucleated Red Blood Cells % 0 %; Platelet Count 352 10^3/cmm (130-400); Red Blood Count 4.87 10^6/uL (4.1-5.3); Red Cell Distribution Width 12.6 % (12.1-15.1); White Blood Count 10.8 10^3/uL (4.0-10.0)
[2021-04-23 13:17] LABS: Alanine Aminotransferase 24 U/L (0-41); Albumin Level 3.9 g/dL (3.5-5.2); Alkaline Phosphatase 86 IU/L (40-130); Aspartate Amino Transferase 18 U/L (0-40); Blood Urea Nitrogen 13 mg/dL (6-20); C Reactive Protein 5.6 mg/L (0.0-4.9); Calcium 8.8 mg/dL (8.5-10.5); Carbon Dioxide 23 mmol/L (22-29); Chloride 106 mmol/L (98-107); Globulin 3.5 g/dL (1.3-4.6); Glomerular Filtration Rate 145.7 mL/min (90-130); Glucose 127 mg/dL (65-115); Osmolality Calculated 294 mOsm/kg (285-295); Sodium 141 mmol/L (136-145); Total Bilirubin 0.2 mg/dL (0.15-1.2); Total Protein 7.4 g/dL (6.6-8.7)
[2021-04-23] MEDS: vancomycin 1,000 MG in sodium chloride 0.9% 250 ML 250 MG IV (14:08)
--- NOTE | 2021-05-28 12:45 | DCPLANNER ---
design manager had message to schedule a follow up appointment with pulmonology. design manager called [facility], spoke with Priscilla, gave clinic patients information. A follow up appointment was scheduled for Tuesday, June 01, 2021 at 8:[address] Medina. Patient is aware of appointment.
== END 2021-04-23 15:15 | disposition home or self-care (01) ==
PROVIDERS: Emergency Provider Physician Assistant
DX: L02.414 Cutaneous abscess of left upper limb (principal); F17.210 Nicotine dependence, cigarettes, uncomplicated
CPT/HCPCS: 10060; 76882; 80053; 85025; 86140; 87040; 87070; 87075; 87205; 96365; 99283; J3370; J7050

== ENCOUNTER 2021-05-25 11:58 | Observation (INO) | payer MEDICAID, SELFPAY ==
[2021-05-25] VITALS (30 sets, daily range): BP systolic 118–190; BP diastolic 79–136; PULSE 66–200; RESP 13–26; TEMP 36.7–36.9; O2SAT 94–98; BMI 32.1
--- NOTE | 2021-05-25 12:17 | ECG_ITS ---
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: : 1975 Requested By: Jorgito Carcamo Order Number: [id number] Reading MD: ETIENNE RANGEL Measurements Intervals [place] Rate: 84 P: 36 CT: 152 QRS: 6 QRSD: 84 T: 62 QT: 343 QTc: 406 Interpretive Statements SINUS RHYTHM POSSIBLE LEFT ATRIAL ENLARGEMENT [-0.1mV P-WAVE IN V1/V2] POSSIBLE LEFT VENTRICULAR HYPERTROPHY [VOLTAGE CRITERIA PLUS LAE OR QRS WIDENING] POSSIBLE SEPTAL MYOCARDIAL INFARCTION , OF INDETERMINATE AGE [30 ms Q WAVE IN V1/V2] Compared to ECG 12/02/2020 20:18:43 Myocardial infarct finding now present Sinus tachycardia no longer present Short CT interval no longer present T-wave abnormality no longer present Electronically Signed On 05-26-2021 17:45:52 LOZENGE MAKER by ETIENNE RANGEL [id number]
--- NOTE | 2021-05-25 12:17 | XRR_ITS ---
PROCEDURE INFORMATION: Exam: XR Chest Exam date and time: 05/25/2021 12:17 PM Age: 45 years old Clinical indication: Chest pain. Angina pectoris. TECHNIQUE: Imaging protocol: XR of the chest. Views: 1 view. COMPARISON: CR (CHEST, ) 12/02/2020 8:17 PM FINDINGS: Lungs: No pulmonary consolidation. Pleural spaces: No pleural effusion. No pneumothorax. Heart/Mediastinum: The cardiac silhouette is approximately unchanged. The main pulmonary arteries appear prominent which may reflect pulmonary arterial hypertension. No gross evidence of pneumomediastinum. Bones/joints: No gross fracture. XR/XR chest 1V portable [id number] IMPRESSION: The main pulmonary arteries appear prominent which may reflect pulmonary arterial hypertension.
--- NOTE | 2021-05-25 12:23 | CT_ITS ---
WS: [id number] CT HEAD NONCONTRAST HISTORY: fall, seizure TECHNIQUE: Contiguous axial imaging performed through the brain in 2.5 mm imaging. Bone and soft tiss ue windows. Sagittal and coronal reformats reviewed. All CT scans at [facility] use at least one of these dose optimization techniques: automated exposure control; mA and/or kV adjustment per pa tient size (includes targeted exams where dose is matched to clinical indication); or iterative recon struction. DLP: 1146.08 mGy.cm COMPARISON: 10/27/2019 No acute intracranial hemorrhage, midline shift or mass effect. No atrophy or prior infarcts or herniation. Ventricles: Normal size with no hydrocephalus. Paranasal sinuses: Mucoperiosteal thickening in the LEFT maxillary sinus. Mastoid air cells: Well pneumatized. Calvarium and scalp: Skull is intact with no soft tissue edema or swelling. CT/CT head wo con* [id number] IMPRESSION: 1. No acute intracranial hemorrhage or edema. 2. No significant atrophy.
[2021-05-25] MEDS: aspirin 325 mg Tablet PO (12:36)
--- NOTE | 2021-05-25 12:44 | W.ED.GENADLT ---
HPI - General Adult General: Chief complaint: Chest Pain Stated complaint: Severe chest pains Time Seen by Provider: 05/25/21 12:17 History of Present Illness: CC: Chest Pain HPI: This is a [45] yo patient w/ hx of family hx of cardiac issues, hx of epilepsy not on AED presenting to the ED complaining of acute sudden onset intermittent pressure chest pain worsening over 2 days w/ radiation to the back. Patient also reports shortness of breath, chest pain or dyspnea on exertion. Pain is not tearing in nature but does radiate to the L arm and jaw. Pain not associated with vomiting or PO intake. Denies any recent sympathomimetic drug use. Patient denies any cough. Denies palpitations, dysphagia, diaphoresis, radiation of pain to bilateral arms, jaw. Denies F/N/V/D. Patient denies any recent immobility, surgery, unilateral leg swelling, or prior PE. Patient denies any orthopnea. Of note, patient has had multiple falls daily. Onset: 2 days ago Duration: ongoing for the last 2 days Location: home Severity: moderate Associated symptoms: Reports chest pain, dyspnea and palpitations; Deny nausea, rash or vomiting Review of Systems Narrative: Constitutional: No fever, no chills. HEENT: No vision changes, no sore throat. CV: +chest pain, no palpitations. PULM: No cough, No dyspnea. GI: No abdominal pain, no N/V/D. : No dysuria, no frequency, no hematuria. MSKEL: No arthralgias, no edema. SKIN: No new rashes, no lesions. NEURO: No headache, no focal weakness. HEME: No easy bleeding or bruising. PSYCH: No change in mood or affect. Const: Denies: fever(s) or chills Eyes: Denies: change in vision ENMT: Denies: mouth pain Card: Reports: chest pain and palpitations Resp: Reports: dyspnea; Denies: non-productive cough GI: Denies: abdominal pain, nausea, vomiting or diarrhea : Denies: dysuria Musc: Denies: extremity pain Skin/Breast: Denies: rash or new lesions Neuro: Denies: weakness in extremities Psych: Reports: other (Normal mood) Aris/Lymph: Denies: easy bruising PFS ED PFSH: Medical History Chronic migraine without aura, intractable, with status migrainosus Seizure Surgical History History of shoulder surgery Family History Other Diabetes Hypertension Stroke Denies family history of CAD (coronary artery disease) Cancer Social History Smoking and tobacco status: current every day smoker cigarettes Packs smoked per day: 0.5 Alcohol intake: current Alcohol intake frequency: few times a month Alcohol type: wine History of recent travel: No Physical Exam Const: COMMON NORMALS: alert HENMT: COMMON NORMALS: atraumatic HEAD & SCALP: atraumatic MOUTH: moist mucous membranes not abnormal Eye: COMMON NORMALS: EOMs intact bilaterally and conjunctivae normal CONJUNCTIVA: Yes conjunctivae normal Neck/C-Spine: COMMON NORMALS: full ROM and supple Resp: COMMON NORMALS: normal respiratory effort and clear to auscultation bilaterally AUSCULTATION: clear to auscultation bilaterally Cardio: COMMON NORMALS: regular rate RATE: regular rate GI: COMMON NORMALS: Soft to palpation and non-tender PALPATION: Yes Soft to palpation Extremity: COMMON NORMALS: full ROM Neuro: SENSORIUM/ORIENTATION: Yes alert MOTOR EXAM: No Abnormal motor strength present and Other motor observations present (no focal motor deficits) Psych: COMMON NORMALS: speech normal SPEECH: Yes normal speech MOOD & AFFECT: Yes euthymic mood Course Vital Signs: Vital signs: Vital Signs Temperature 98.1 F 05/25/21 12:02 Pulse Rate 71 05/25/21 14:34 Respiratory Rate 22 H 05/25/21 15:24 Blood Pressure 149/95 05/25/21 14:34 Pulse Oximetry 98 05/25/21 14:34 MDM - General Adult Medical Decision Making [45]yo patient w/ family hx of cardiac issues presenting to the ED with evaluation of new onset of chest pain x 2 days. HDS, pulse 2+ radially bilaterally, no signs of fluid overload, AAOx3, neuro exam intact. Given History and Exam today I have no suspicion for ACS, Pneumothorax, Pneumonia, Pulmonary Embolus, Tamponade, Aortic Dissection or other emergent problems as a cause for this presentation. Workup: ECG x 3, CXR, CBC, BMP, Troponin x 3 Interventions: ASA, nitro Q5 minutes Findings: ECG: No overt evidence of STEMI, hyperacute T waves, localizable STD or T wave inversions. No evidence of Brugada?s sign, delta wave, epsilon wave, significantly prolonged QTc, or malignant arrhythmia. No Q waves. Other Labs unremarkable for emergent problems. CXR: Without PTX, PNA, or widened mediastinum Last Stress Test: never Last Heart Catheterization: never [1:30pm] On reassessment, the patient is HDS, continues to have pressure-like chest pain despite medication treatment. Will be admitted for unstable angina workup. CT head negative for brain bleed. Dimer positive. CTA chest showed multiple nodules. These incidental findings of nodules discussed extensively with patient. Patient received a copy of the CTA chest report with the documented findings. Patient is instructed to follow up urgently with specialists. I have given patient follow up with our machine adjuster leader case trim to be seen by our outpatient pulmonology to evaluate the the possibility of cancer. Patient aware of a call from our machine adjuster leader case trim to schedule for appointment(s) and verbalizes understanding of the importance of following up. Disposition: admission Lab Data : 05/25/21 14:40 05/25/21 14:40 Radiology Impressions Chest X-Ray 05/25/21 12:17 IMPRESSION: The main pulmonary arteries appear prominent which may reflect pulmonary arterial hypertension. Head CT 05/25/21 12:23 IMPRESSION: 1. No acute intracranial hemorrhage or edema. 2. No significant atrophy. Chest CTA 05/25/21 12:55 IMPRESSION: 1. No central pulmonary embolism. 2. Multiple nodules in the LEFT lower lobe with mediastinal and hilar adenopathy. Some of the central nodules in the LEFT lower lobe are associated with the bronchovascular tree. The more peripheral nodule has surrounding groundglass attenuation. Consider neoplastic etiology versus infection such as fungal or aspergillosis as possible etiologies. New finding since 11/25/2020. Recommend evaluation by pulmonary medicine. Laboratory Results WBC 9.3 10^3/uL (4.0-10.0) 05/25/21 14:40 RBC 5.07 10^6/uL (4.1-5.3) 05/25/21 14:40 Hgb 15.8 g/dL (11.7-16.6) 05/25/21 14:40 Hct 46.3 % (42.0-52.0) 05/25/21 14:40 MCV 91.3 fl (80-94) 05/25/21 14:40 MCH 31.2 pg (28.0-34.0) 05/25/21 14:40 MCHC 34.1 g/dL (30.0-36.0) 05/25/21 14:40 RDW 12.2 % (12.1-15.1) 05/25/21 14:40 Plt Count 255 10^3/cmm (130-400) 05/25/21 14:40 MPV 9.7 fL (7.4-10.4) 05/25/21 14:40 Neut % (Auto) 59.5 % 05/25/21 14:40 Lymph % (Auto) 25.0 % 05/25/21 14:40 [place] % (Auto) 10.9 % 05/25/21 14:40 Eos % (Auto) 3.3 % 05/25/21 14:40 Baso % (Auto) 1.0 % 05/25/21 14:40 Neut # (Auto) 5.55 10^3/uL (1.8-7.7) 05/25/21 14:40 Lymph # (Auto) 2.3 10^3/uL (0.8-4.8) 05/25/21 14:40 [place] # (Auto) 1.0 10^3/uL (0.2-0.9) H 05/25/21 14:40 Eos # (Auto) 0.3 10^3/uL (0.0-0.8) 05/25/21 14:40 Baso # (Auto) 0.1 10^3/uL (0.0-0.1) 05/25/21 14:40 Nucleated RBC % (auto) 0 % 05/25/21 14:40 Nucleated RBCs # 0.0 /100WBC 05/25/21 14:40 D-Dimer 0.73 ug/mIFEU (0-0.59) H 05/25/21 12:27 Sodium 139 mmol/L (136-145) 05/25/21 14:40 Chloride 103 mmol/L (98-107) 05/25/21 14:40 Carbon Dioxide 27 mmol/L (22-29) 05/25/21 14:40 BUN 11 mg/dL (6-20) 05/25/21 14:40 Creatinine 0.7 mg/dL (0.7-1.2) 05/25/21 14:40 GFR Calculation 122.0 mL/min (90-130) 05/25/21 14:40 Glucose 82 mg/dL (65-115) 05/25/21 14:40 Calculated Osmolality 286 mOsm/kg (285-295) 05/25/21 14:40 Calcium 8.8 mg/dL (8.5-10.5) 05/25/21 14:40 Troponin T Baseline 6 ng/L (0-15) 05/25/21 12:27 Troponin T 120 Minute 6.00 ng/L (0-15) 05/25/21 02:40 Other Data [address] [address] XRay Report Signed Patient: Ricci Brock Jr Unit #: [id number] : 1975 Age/Sex: 45 / M ADM Date: 05/25/21 Loc: ER Room/Bed: Attending Dr: Ordering Provider/Ordering MD: Jorgito Carcamo MD Date of Service: 05/25/21 Procedure(s): XR chest 1V portable [id number] Accession Number(s): [id number] Report Number: [id number] PROCEDURE INFORMATION: Exam: XR Chest Exam date and time: 05/25/2021 12:17 PM Age: 45 years old Clinical indication: Chest pain. Angina pectoris. TECHNIQUE: Imaging protocol: XR of the chest. Views: 1 view. COMPARISON: CR (CHEST, ) 12/02/2020 8:17 PM FINDINGS: Lungs: No pulmonary consolidation. Pleural spaces: No pleural effusion. No pneumothorax. Heart/Mediastinum: The cardiac silhouette is approximately unchanged. The main pulmonary arteries appear prominent which may reflect pulmonary arterial hypertension. No gross evidence of pneumomediastinum. Bones/joints: No gross fracture. XR/XR chest 1V portable [id number] IMPRESSION: The main pulmonary arteries appear prominent which may reflect pulmonary arterial hypertension. ? Dictated By: Jose Friedman Signed By: Jose Friedman Signed Date/Time: 05/25/21 1244 DD/ 1217 [facility] [address] [facility] [place] [address] CT Scan Report Signed Patient: Ricci Brock Jr Unit #: [id number] : 1975 Age/Sex: 45 / M ADM Date: 05/25/21 Loc: ER Room/Bed: Attending Dr: Ordering Provider/Ordering MD: Jorgito Carcamo MD Date of Service: 05/25/21 Procedure(s): CT head wo con* [id number] Accession Number(s): [id number] Report Number: [id number] WS: [id number] CT HEAD NONCONTRAST HISTORY: fall, seizure TECHNIQUE: Contiguous axial imaging performed through the brain in 2.5 mm imaging. Bone and soft tissue windows. Sagittal and coronal reformats reviewed.? All CT scans at [facility] use at least one of these dose optimization techniques: automated exposure control; mA and/or kV adjustment per patient size (includes targeted exams where dose is matched to clinical indication); or iterative reconstruction. DLP: 1146.08 mGy.cm COMPARISON: 10/27/2019 No acute intracranial hemorrhage, midline shift or mass effect. No atrophy or prior infarcts or herniation. Ventricles:? Normal size with no hydrocephalus. Paranasal sinuses: Mucoperiosteal thickening in the LEFT maxillary sinus. Mastoid air cells: Well pneumatized. Calvarium and scalp: Skull is intact with no soft tissue edema or swelling. CT/CT head wo con* [id number] IMPRESSION: ? 1.? No acute intracranial hemorrhage or edema. 2.? No significant atrophy. ? Dictated By: Nahomy Hu DO Signed By: Nahomy Hu DO Signed Date/Time: 05/25/21 1306 DD/ [address] [place] [address] CT Scan Report Signed Patient: Ricci Brock Jr Unit #: [id number] : 1975 Age/Sex: 45 / M ADM Date: 05/25/21 Loc: ER Room/Bed: Attending Dr: Ordering Provider/Ordering MD: Jorgito Carcamo MD Date of Service: 05/25/21 Procedure(s): CT angio chest PE protcl [id number] Accession Number(s): [id number] Report Number: [id number] WS: [id number] CT CHEST ANGIOGRAPHY WITH REFORMATS HISTORY: eval for pe, left-sided chest pain for 2 days. TECHNIQUE: Contiguous axial images are obtained through the chest during arterial injection of intravenous contrast. Images are reconstructed to evaluate the pulmonary arteries. MIP imaging also reviewed.? All CT scans at [facility] use at least one of these dose optimization techniques: automated exposure control; mA and/or kV adjustment per patient size (includes targeted exams where dose is matched to clinical indication); or iterative reconstruction. CONTRAST: Omnipaque 350; 75 mL IV. DLP: 600.08 mGy.cm COMPARISON: 11/25/2020 Limited opacification of the pulmonary arteries. Imaging is too early to the bolus. No central pulmonary artery. Through the lobar branches no pulmonary embolism. Beyond the lobar branches and a proximal lower lobe segmental branches the opacification is limited. Normal size pulmonary artery. Normal thoracic aorta size. There are a few scattered calcified plaques within the aorta. Mild enlargement of the LEFT heart. No pericardial effusion. There is a new pulmonary nodule with adjacent groundglass attenuation in the periphery of the LEFT lower lobe. Largest diameter of the nodule is 16 mm. There is an additional soft tissue nodules in the medial LEFT lower lobe closely associated with the bronchovascular structures. LEFT hilar lymphadenopathy. Lymph nodes extend along the proximal LEFT lower lobe pulmonary artery. The largest lymph nodes measure up to 1.5 cm. There are additional smaller the palmar RIGHT hilar lymph nodes. Small but numerous lymph nodes in the prevascular space and paratracheal. No adrenal mass. There is no enhancement within the distal organs of the upper abdomen. No destructive bone lesions. CT/CT angio chest PE protcl [id number] IMPRESSION: ? 1.? No central pulmonary embolism. 2.? Multiple nodules in the LEFT lower lobe with mediastinal and hilar adenopathy. Some of the central nodules in the LEFT lower lobe are associated with the bronchovascular tree. The more peripheral nodule has surrounding groundglass attenuation. Consider neoplastic etiology versus infection such as fungal or aspergillosis as possible etiologies. New finding since 11/25/2020. Recommend evaluation by pulmonary medicine. ? ? ? Dictated By: Nahomy Hu DO Signed By: Nahomy Hu DO Signed Date/Time: 05/25/21 1352 DD/ 1324 Discharge Plan Discharge Patient Disposition: Admitted As Inpatient Clinical Impression: Chest pain Condition: Stable Coding Level of Care Code ED Chief Solution Architect for Chg Fwd Exam Comprehensive
[2021-05-25 12:51] LABS: D Dimer 0.73 ug/mIFEU (0-0.59)
--- NOTE | 2021-05-25 12:55 | CT_ITS ---
WS: [id number] CT CHEST ANGIOGRAPHY WITH REFORMATS HISTORY: eval for pe, left-sided chest pain for 2 days. TECHNIQUE: Contiguous axial images are obtained through the chest during arterial injection of intrav enous contrast. Images are reconstructed to evaluate the pulmonary arteries. MIP imaging also reviewe d. All CT scans at [facility] use at least one of these dose optimization techniques: automat ed exposure control; mA and/or kV adjustment per patient size (includes targeted exams where dose is matched to clinical indication); or iterative reconstruction. CONTRAST: Omnipaque 350; 75 mL IV. DLP: 600.08 mGy.cm COMPARISON: 11/25/2020 Limited opacification of the pulmonary arteries. Imaging is too early to the bolus. No central pulmon carine artery. Through the lobar branches no pulmonary embolism. Beyond the lobar branches and a proxima l lower lobe segmental branches the opacification is limited. Normal size pulmonary artery. Normal th oracic aorta size. There are a few scattered calcified plaques within the aorta. Mild enlargement of the LEFT heart. No pericardial effusion. There is a new pulmonary nodule with adjacent groundglass attenuation in the periphery of the LEFT lo wer lobe. Largest diameter of the nodule is 16 mm. There is an additional soft tissue nodules in the medial LEFT lower lobe closely associated with the bronchovascular structures. LEFT hilar lymphadenop athy. Lymph nodes extend along the proximal LEFT lower lobe pulmonary artery. The largest lymph nodes measure up to 1.5 cm. There are additional smaller the palmar RIGHT hilar lymph nodes. Small but num erous lymph nodes in the prevascular space and paratracheal. No adrenal mass. There is no enhancement within the distal organs of the upper abdomen. No destructiv e bone lesions. CT/CT angio chest PE protcl [id number] IMPRESSION: 1. No central pulmonary embolism. 2. Multiple nodules in the LEFT lower lobe with mediastinal and hilar adenopat hy. Some of the central nodules in the LEFT lower lobe are associated with the bronchovascular tree. The more peripheral nodule has surrounding groundglass at tenuation. Consider neoplastic etiology versus infection such as fungal or aspe rgillosis as possible etiologies. New finding since 11/25/2020. Recommend evalua tion by pulmonary medicine.
[2021-05-25 13:12] LABS: Troponin(5th) Baseline 6 ng/L (0-15)
[2021-05-25] MEDS: iohexol 350 mg/mL 100 mL Btl IV (13:15)
--- NOTE | 2021-05-25 14:17 | ECG_ITS ---
[facility] Test Date: 2021-05-25 Pat Name: Ricci Brock Department: Room: Gender: Male Clerical Adjudicator: : 1975 Requested By: Jorgito Carcamo Order Number: [id number] Reading MD: ETIENNE RANGEL Measurements Intervals Belle Rate: 68 P: 29 ND: 159 QRS: 17 QRSD: 86 T: 54 QT: 365 QTc: 389 Interpretive Statements SINUS RHYTHM Compared to ECG 05/25/2021 12:12:29 Myocardial infarct finding no longer present Electronically Signed On 05-26-2021 17:47:21 SOFTWARE ARCHITECT by ETIENNE RANGEL [id number]
[2021-05-25 14:57] LABS: Basophils # 0.1 10^3/uL (0.0-0.1); Eosinophils # 0.3 10^3/uL (0.0-0.8); Eosinophils % 3.3 %; Hematocrit 46.3 % (42.0-52.0); Hemoglobin 15.8 g/dL (11.7-16.6); Lymphocytes # 2.3 10^3/uL (0.8-4.8); Mean Corpuscular HGB Conc 34.1 g/dL (30.0-36.0); Mean Corpuscular Hemoglobin 31.2 pg (28.0-34.0); Mean Corpuscular Volume 91.3 fl (80-94); Mean Platelet Volume 9.7 fL (7.4-10.4); Monocytes % 10.9 %; Neutrophils # 5.55 10^3/uL (1.8-7.7); Neutrophils % 59.5 %; Nucleated Red Blood Cells % 0 %; Platelet Count 255 10^3/cmm (130-400); Red Blood Count 5.07 10^6/uL (4.1-5.3); Red Cell Distribution Width 12.2 % (12.1-15.1); White Blood Count 9.3 10^3/uL (4.0-10.0)
[2021-05-25 15:24] LABS: Blood Urea Nitrogen 11 mg/dL (6-20); Calcium 8.8 mg/dL (8.5-10.5); Carbon Dioxide 27 mmol/L (22-29); Chloride 103 mmol/L (98-107); Creatinine Clr Calc Pharmacy 163.8192; Glucose 82 mg/dL (65-115); Osmolality Calculated 286 mOsm/kg (285-295); Sodium 139 mmol/L (136-145)
[2021-05-25] MEDS: morphine 4 mg/mL SDV 1 mL 2 MG IVP (15:24)
--- NOTE | 2021-05-25 15:35 | PC.PHAR ---
PT STATES HE TAKES NO RX OR OTC MEDICATIONS-PT STATES HE DOESNT HAVE AN INHALER EXT MED HISTORY SHOWS PROAIR FILLED ON 11/28/20
[2021-05-25 15:39] LABS: Anion Gap 13.3 (5-19); Potassium 4.3 mmol/L (3.5-5.1)
[2021-05-25 15:43] LABS: Troponin 5 2HR Delta 0 ABS# (0-10)
--- NOTE | 2021-05-25 16:24 | P.HP_ITS ---
Providers/Chief Complaint Chief Complaint: Severe chest pains History of Present Illness Ricci Brock Jr is a 45 year old male without significant past medical history other than bipolar disorder and hypertension presented to the hospital with chief complaint of left arm and chest pain. Patient is stating that for last 3 to 4 days he has been experiencing chest discomfort which is reproducible, this pain which he would describe as stabbing in nature was also radiating towards his left shoulder and he is experiencing shooting stabbing pain in his arm. Because of his worsening of symptoms he decided to come to the hospital for further evaluation. He is not vaccinated for COVID-19. He stating that he has been diagnosed with seizure disorder/migraine complex, Dr. Franks have started him on Zanaflex He is currently living with his ficl?brown's parents. His father was diagnosed with pick's disease. His sister has frontal lobe dementia. Patient is stating that he had more than 600 episode of seizures since last year. In the ER he was diagnosed with multiple lymphadenopathies on CTA chest however no signs of PE chest pain has resolved, it is reproducible, troponin without significant delta, EKG unremarkable, requested cancer work-up He is denying nocturnal fever, weight loss, diarrhea, abdominal bloating, recently he started noticing blood in his cough which was minimal quantity. Review of Systems Const: Reports: chills, body aches and fatigue Eyes: Denies: change in vision ENMT: Denies: throat pain Card: Reports: chest pain Resp: Denies: dyspnea GI: Denies: abdominal pain : Denies: flank pain Musc: Reports: extremity pain; Denies: neck pain Skin/Breast: Denies: rash Neuro: Reports: headache(s) Psych: Reports: anxiety Endo: Denies: polyuria Aris/Lymph: Denies: easy bruising All/Imm: Denies: urticaria Medications/Allergies Home Medications Medication Instructions Recorded Confirmed Last Taken Type No Known Home Medications 05/25/21 05/25/21 Unknown History Allergies Allergy/AdvReac Type Severity Reaction Status Date / Time bupropion [From Wellbutrin] Allergy ADR-Seizure Verified 05/25/21 15:35 Sulfa (Sulfonamide Allergy ADR-Nose Verified 05/25/21 15:35 Antibiotics) Bleed PFSH Acute PFSH: Medical History Chronic migraine without aura, intractable, with status migrainosus Seizure Surgical History History of shoulder surgery Family History Other Diabetes Hypertension Stroke Denies family history of CAD (coronary artery disease) Cancer Social History Smoking and tobacco status: current every day smoker cigarettes Packs smoked per day: 0.5 Alcohol intake: current Alcohol intake frequency: few times a month Alcohol type: wine History of recent travel: No Vitals/I&O/Wt Last Vital Signs Temp 98.1 F 05/25/21 12:02 Pulse 71 05/25/21 14:34 Resp 22 H 05/25/21 15:24 BP 149/95 05/25/21 14:34 Pulse Ox 98 05/25/21 14:34 Weight last 48 hrs Weight 104.326 kg Physical Exam Narrative: EXAM NARRATIVE: Patient is laying flat, comfortable No active chest pain S1, S2 Abdomen soft Nonfocal neuro exam Breathing well on room air No supraclavicular lymphadenopathy I was not able appreciate any axillary lymphadenopathy, Morbid obese Nonfocal neuro exam EOMI, PERRLA Data : 05/25/21 14:40 05/25/21 14:40 A&P Assessment and plan (1) Chest pain: Status: Acute (2) Hemoptysis: Status: Acute (3) Chronic migraine without aura, intractable, with status migrainosus: Status: Acute (4) Seizure: Status: Acute (5) Hilar lymphadenopathy: Status: Acute Plan Reproducible chest pain Hemoptysis Multiple lymphadenopathies, hilar, No active signs of infection, We will request CT abdomen pelvis Patient is denying B-cell symptoms We will also request cervical spine CT for his left arm numbness and shooting pain Rule out pericardial effusion/pericarditis with echo Troponin unremarkable, EKG without ischemic or infarctive changes, We will check LDH, drug screen, CEA DVT prophylaxis Lovenox I will give him a dose of ketorolac IV push Full code Regular diet Attestations Medical Necessity Statement*: Less than 2 midnights anticipated Time Spent in Patient Care: 35 minutes Coding Level of Care Code Acute Platform Software Engineer for Chg Fwd Diagnoses Chest pain R07.9 Hemoptysis R04.2 Chronic migraine without aura, intractable, with status migrainosus G43.711 Seizure R56.9 Hilar lymphadenopathy R59.0
--- NOTE | 2021-05-25 17:35 | CTR_ITS ---
PROCEDURE INFORMATION: Exam: CT Abdomen And Pelvis Without Contrast Exam date and time: 05/25/2021 5:35 PM Age: 45 years old Clinical indication: Patient HX: Lymphadenopathy noted on cta chest earlier today. ; Additional info: Lympadenoapthy chest pain TECHNIQUE: Imaging protocol: Computed tomography of the abdomen and pelvis without contrast. Radiation optimization: All CT scans at this facility use at least one of these dose optimization techniques: automated exposure control; mA and/or kV adjustment per patient size (includes targeted exams where dose is matched to clinical indication); or iterative reconstruction. COMPARISON: CT chest abd pel w con* 11/25/2020 8:02 PM RADIATION DOSE METRICS: Total DLP (mGy-cm): 1822.12 FINDINGS: Pleural spaces: 16 mm pleural based left lower lobe pulmonary nodule again identified, unchanged from the earlier CT chest study of 05/25/2021. Liver: The liver is unremarkable in appearance. Gallbladder and bile ducts: Unremarkable. No calcified stones. No ductal dilation. Pancreas: The pancreas is normal in appearance. No pancreatic duct dilatation. Spleen: The spleen is normal in size and appearance. Adrenal glands: The adrenal glands appear within normal limits. Kidneys and ureters: The kidneys are morphologically normal. No nephrolithiasis. No hydronephrosis. Excreted contrast demonstrated in the bilateral renal pelvises. No ureteral calculi. No obstructive uropathy. Stomach and bowel: No acute gastric abnormality demonstrated. The small bowel is unremarkable as demonstrated. Minimal diverticulosis of the colon. No acute diverticulitis. Appendix: No evidence of appendicitis. Normal appendix identified. Intraperitoneal space: No pneumoperitoneum. No significant fluid collection. Vasculature: Minimal atherosclerosis of the aorta. No aortic aneurysm. Lymph nodes: No pathologically enlarged lymph nodes are demonstrated in the abdomen and pelvis. Urinary bladder: Urinary bladder is opacified with excreted contrast. The bladder appears morphologically normal. Reproductive: Unremarkable as visualized. Bones/joints: Mild degenerative spine changes. No acute osseous abnormality. Soft tissues: Unremarkable. CT/CT abdomen pelvis wo con [id number] IMPRESSION: 1. 16 mm pleural based left lower lobe pulmonary nodule again identified, unchanged from the earlier CT chest study of 05/25/2021. 2. No pathologically enlarged lymph nodes are demonstrated in the abdomen and pelvis. 3. No acute abnormality demonstrated in the abdomen and pelvis.
--- NOTE | 2021-05-25 17:35 | CTR_ITS ---
PROCEDURE INFORMATION: Exam: CT Cervical Spine Without Contrast Exam date and time: 05/25/2021 5:35 PM Age: 45 years old Clinical indication: Patient HX: C/O neck pain; Additional info: Back pain TECHNIQUE: Imaging protocol: Computed tomography images of the cervical spine without contrast. Radiation optimization: All CT scans at this facility use at least one of these dose optimization techniques: automated exposure control; mA and/or kV adjustment per patient size (includes targeted exams where dose is matched to clinical indication); or iterative reconstruction. COMPARISON: CT cervical spin wo con* [id number] 07/04/2019 10:37 PM RADIATION DOSE METRICS: Total DLP (mGy-cm): 986.5 FINDINGS: Bones/joints: Mild reversal of the cervical lordosis, which may indicate muscle spasm. Degenerative facet joints are noted throughout the cervical spine. Discs/Spinal canal/Neural foramina: Degenerative disc narrowing at C5-C6 and C6-C7. No large disc protrusion at any level. No severe spinal canal stenosis. Lungs: The lung apices are not included on the examination. Soft tissues: The soft tissues appear unremarkable. CT/CT cervical spin wo con* [id number] IMPRESSION: 1. Mild reversal of the cervical lordosis, which may indicate muscle spasm. 2. No acute osseous abnormality of the cervical spine demonstrated. 3. There is no significant change from the prior examination.
--- NOTE | 2021-05-25 17:35 | CTR_ITS ---
PROCEDURE INFORMATION: Exam: CT Lumbar Spine Without Contrast Exam date and time: 05/25/2021 5:35 PM Age: 45 years old Clinical indication: Patient HX: C/O low back pain. TECHNIQUE: Imaging protocol: Computed tomography images of the lumbar spine without contrast. Radiation optimization: All CT scans at this facility use at least one of these dose optimization techniques: automated exposure control; mA and/or kV adjustment per patient size (includes targeted exams where dose is matched to clinical indication); or iterative reconstruction. COMPARISON: CT lumbar spine wo con* [id number] 10/27/2019 7:12 AM RADIATION DOSE METRICS: Total DLP (mGy-cm): 2118.56 FINDINGS: Vertebrae: Vertebral body heights are preserved. No compression fractures are noted. Vertebral alignment is physiologic. Degenerative facet joint changes are present from L3 through S1. Discs/Spinal canal/Neural foramina: Degenerative disc narrowing with vacuum disc phenomenon at L5-S1. Intervertebral disc heights are otherwise preserved. Posterior disc bulges are demonstrated at L4-L5 and L5-S1. No severe spinal stenosis associated. The upper lumbar discs are free of significant bulges or protrusions. Soft tissues: The paraspinous soft tissues are unremarkable. CT/CT lumbar spine wo con* [id number] IMPRESSION: 1. Degenerative lumbar spine changes are noted. 2. No acute abnormality of the lumbar spine demonstrated. 3. There is no interval change from the prior examination.
--- NOTE | 2021-05-25 18:17 | ECG_ITS ---
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 [id number]
[2021-05-25 20:08] LABS: Troponin 5 6HR Delta 0 ng/L (0-12)
[2021-05-25 20:09] LABS: Carcinoembryonic Antigen 2.6 ng/mL (0.0-4.7)
[2021-05-25 20:20] LABS: Lactate Dehydrogenase 171 U/L (135-225)
[2021-05-25] MEDS: enoxaparin 40 mg/0.4 mL Syringe SUBCUT (21:02)
[2021-05-25] MEDS: ketorolac 30 mg/mL INJ 15 MG IVP (21:18)
[2021-05-26] VITALS (11 sets, daily range): BP systolic 120–145; BP diastolic 76–89; PULSE 60–89; RESP 15–20; TEMP 36.8–36.9; O2SAT 95–98
[2021-05-26] MEDS: morphine 4 mg/mL SDV 1 mL 2 MG IVP ×3 (00:52→11:57)
[2021-05-26 05:25] LABS: Basophils # 0.1 10^3/uL (0.0-0.1); Basophils % 1.2 %; Eosinophils # 0.5 10^3/uL (0.0-0.8); Eosinophils % 4.3 %; Hematocrit 45.7 % (42.0-52.0); Hemoglobin 15.6 g/dL (11.7-16.6); Lymphocytes # 3.8 10^3/uL (0.8-4.8); Lymphocytes % 36.3 %; Mean Corpuscular HGB Conc 34.1 g/dL (30.0-36.0); Mean Corpuscular Hemoglobin 31.6 pg (28.0-34.0); Mean Corpuscular Volume 92.5 fl (80-94); Mean Platelet Volume 10.1 fL (7.4-10.4); Monocytes # 1.3 10^3/uL (0.2-0.9); Monocytes % 12.3 %; Neutrophils # 4.79 10^3/uL (1.8-7.7); Neutrophils % 45.7 %; Nucleated Red Blood Cells % 0 %; Platelet Count 287 10^3/cmm (130-400); Red Blood Count 4.94 10^6/uL (4.1-5.3); Red Cell Distribution Width 12.4 % (12.1-15.1); White Blood Count 10.5 10^3/uL (4.0-10.0)
[2021-05-26 05:49] LABS: Alanine Aminotransferase 32 U/L (0-41); Albumin Level 4.2 g/dL (3.5-5.2); Alkaline Phosphatase 88 IU/L (40-130); Anion Gap 17.7 (5-19); Aspartate Amino Transferase 22 U/L (0-40); Blood Urea Nitrogen 13 mg/dL (6-20); Carbon Dioxide 21 mmol/L (22-29); Chloride 103 mmol/L (98-107); Creatinine Clr Calc Pharmacy 163.8192; Glucose 61 mg/dL (65-115); Osmolality Calculated 284 mOsm/kg (285-295); Potassium 3.7 mmol/L (3.5-5.1); Sodium 138 mmol/L (136-145); Total Bilirubin 0.4 mg/dL (0.15-1.2); Total Protein 7.2 g/dL (6.6-8.7)
--- NOTE | 2021-05-26 07:50 | USCV_ITS ---
BrockRicci guillaume Age: 45 Gender: M : 1975 Exam Date: 05/26/2021 08:41 Ordering Phys: Torrey Cheney MD Technologist: Yudi Pereira Exam Location[place] [facility] [place] Indication: Angina BP: 145 / 88 HR: Rhythm: Sinus Technical Quality: Adequate MEASUREMENTS (Male / Female) Normal Values 2D ECHO LV Diastolic Diameter PLAX 4.5 cm 4.2 - 5.9 / 3.9 - 5.3 cm LV Systolic Diameter PLAX 2.8 cm IVS Diastolic Thickness 1.4 cm 0.6 - 1.0 / 0.6 - 0.9 cm IVS Systolic Thickness 1.5 cm LVPW Diastolic Thickness 1.1 cm 0.6 - 1.0 / 0.6 - 0.9 cm LVPW Systolic Thickness 1.1 cm RV Chamber Size 2.7 cm LVOT Diameter 2.2 cm LV Ejection Fraction 2D Teich 67.7 % LV Ejection Fraction MOD 2C 70.7 % LV Ejection Fraction 2C AL 71.5 % LA Diameter 2.3 cm LA Width 2.8 cm LA Height 4.6 cm RA Width 2.4 cm RA Height 4.4 cm Aorta at Sinotubular Diameter 3.1 cm M-MODE Aortic Annulus Diameter 3.6 cm LA Ao Ratio MM 0.8 MV E Point Septal Separation 0.4 cm DOPPLER AV Peak Velocity 130.0 cm/s LVOT Peak Velocity 109.0 cm/s AV Area Cont Eq vti 3.3 cm squared AV Area Cont Eq pk 3.1 cm squared MV Area PHT 3.7 cm squared Mitral E to A Ratio 0.9 MV E' Velocity 46.5 cm/s Mitral E to MV E' Ratio 7.2 Mitral E to LV E' Lateral Ratio 5.6 Mitral E to LV E' Septal Ratio 10.2 TV Peak E Velocity 74.0 cm/s Right Atrial Pressure 3.0 mmHg RV Acceleration Time 0.1 s RV Ejection Time 0.2 s RV AcT/ET 0.3 FINDINGS Left Ventricle Normal left ventricular cavity size. Normal left ventricular systolic function. No regional wall motion abnormalities. Left ventricular ejection fraction is estimated at 67 %. Grade I/IV diastolic dysfunction (abnormal relaxation filling pattern), normal to mildly elevated filling pressures. Right Ventricle The right ventricle is normal in size and function. RVSP could not be calculated due to incomplete tricuspid regurgitation velocity profile. Right Atrium The right atrium is normal in size. Left Atrium The left atrium is normal in size. Mitral Valve Mildly thickened mitral valve. No mitral valve stenosis. Mild mitral valve regurgitation. Aortic Valve Structurally normal aortic valve without significant sclerosis or stenosis. There is no aortic regurgitation. Tricuspid Valve Mild tricuspid valve regurgitation. Pulmonic Valve Structurally normal pulmonic valve without significant stenosis. There is no pulmonic regurgitation. Pericardium Normal pericardium without effusion. Aorta Normal ascending aorta dimension. CONCLUSIONS 1-Normal left ventricular cavity size. Normal left ventricular systolic function. No regional wall motion abnormalities. Left ventricular ejection fraction is estimated at 67 %. Grade I/IV diastolic dysfunction (abnormal relaxation filling pattern), normal to mildly elevated filling pressures. 2-Mildly thickened mitral valve. No mitral valve stenosis. Mild mitral valve regurgitation. 3-Structurally normal aortic valve without significant sclerosis or stenosis. There is no aortic regurgitation. 4-There is no pericardial effusion. 5-The right ventricle is normal in size and function. RVSP could not be calculated due to incomplete tricuspid regurgitation velocity profile. 6-Right atrial pressure is around 5 mm of mercury. 7-There are no prior echocardiogram studies to compare. Torrey Ortiz MD (Electronically Signed) Final Date: 26 May 2021 17:31 S
[2021-05-26] MEDS: lisinopril 10 mg Tablet PO (08:18)
[2021-05-26 09:53] LABS: Amphetamines Screen Urine Negative (Negative); Barbiturates Screen Urine Negative (Negative); Benzodiazepines Screen Urine Negative (Negative); Cocaine Screen Urine Negative (Negative); Opiate Screen Urine Positive (Negative); PCP Screen Urine Negative (Negative); THC Screen Urine Negative (Negative)
--- NOTE | 2021-05-26 11:50 | PM.DCS ---
Discharge Providers Date of Admission: 05/25/21 15:25 Date of Discharge: May 26, 2021 Attending Provider at Admission: Torrey Cheney MD Attending Provider at Discharge: Torrey Cheney MD Diagnoses at Discharge Discharge Diagnosis (1) Chest pain: Status: Acute (2) Hemoptysis: Status: Acute (3) Chronic migraine without aura, intractable, with status migrainosus: Status: Acute (4) Seizure: Status: Acute (5) Hilar lymphadenopathy: Status: Acute Reason for Visit Reason for Visit: Severe chest pains Hospital Course Hospital Course Ricci Brock Jr is a 45 year old male without significant past medical history other than bipolar disorder and hypertension presented to the hospital with chief complaint of left arm and chest pain.? Patient is stating that for last 3 to 4 days he has been experiencing chest discomfort which is reproducible, this pain which he would describe as stabbing in nature was also radiating towards his left shoulder and he is experiencing shooting stabbing pain in his arm.? Because of his worsening of symptoms he decided to come to the hospital for further evaluation.? He is not vaccinated for COVID-19.? He stating that he has been diagnosed with seizure disorder/migraine complex, Dr. Franks have started him on Effexor . He is currently living with his fianc?e's parents.? His father was diagnosed with pick's disease.? His sister has frontal lobe dementia.? Patient is stating that he had more than 600 episode of seizures since last year. In the ER he was diagnosed with multiple lymphadenopathies on CTA chest however no signs of PE chest pain has resolved, it is reproducible, troponin without significant delta, EKG unremarkable, requested cancer work-up He is denying nocturnal fever, weight loss, diarrhea, abdominal bloating, recently he started noticing blood in his cough which was minimal quantity CT abdomen pelvis did not show any lymphadenopathy, 16mm pleural-based left lower lobe pulmonary nodule, cervical spine CT scan unremarkable, patient on 05/26 is comfortable, doing well on room air, reproducible chest pain, echo has been obtained, report is pending, I will discharge this patient today with outpatient follow-up with Dr. Garcia for possible biopsy, new PCP appointment, will give him albuterol, lisinopril, Effexor, Depakote,. Please review neurology note for his seizure. He has not been taking any of his antiepileptics at home. Documentation was provided for financial assistance. Physical Exam Narrative: EXAM NARRATIVE: Patient saturating well He has left-sided reproducible chest pain No significant lymphadenopathy such as supraclavicular or axillary noted Abdomen soft Nonfocal neuro exam Awake and alert Normal hemodynamics Saturating well on room air Discharge Data Studies Completed and Pending Completed Studies During Hospitalization Category Date Time Status CT abdomen pelvis wo con [id number] Routine Cat Scan 05/25/21 17:[address] cervical spin wo con* [id number] Routine Cat Scan 05/25/21 17:[address] head wo con* [id number] Urgent Cat Scan 05/25/21 12:[address] lumbar spine wo con* [id number] Routine Cat Scan 05/25/21 17:35 Completed CTA chest [CT angio chest PE protcl [id number]] Urgent Cat Scan 05/25/21 12:55 Completed XR chest 1V portable [id number] Stat Exams 05/25/21 12:17 Completed Pending at discharge Category Date Time Status CV. echo complete* [id number] Routine Ultrasound 05/26/21 07:50 Taken Radiology Impressions Chest X-Ray 05/25/21 12:17 IMPRESSION: The main pulmonary arteries appear prominent which may reflect pulmonary arterial hypertension. Head CT 05/25/21 12:23 IMPRESSION: 1. No acute intracranial hemorrhage or edema. 2. No significant atrophy. Chest CTA 05/25/21 12:55 IMPRESSION: 1. No central pulmonary embolism. 2. Multiple nodules in the LEFT lower lobe with mediastinal and hilar adenopathy. Some of the central nodules in the LEFT lower lobe are associated with the bronchovascular tree. The more peripheral nodule has surrounding groundglass attenuation. Consider neoplastic etiology versus infection such as fungal or aspergillosis as possible etiologies. New finding since 11/25/2020. Recommend evaluation by pulmonary medicine. Abdomen/Pelvis CT 05/25/21 17:35 IMPRESSION: 1. 16 mm pleural based left lower lobe pulmonary nodule again identified, unchanged from the earlier CT chest study of 05/25/2021. 2. No pathologically enlarged lymph nodes are demonstrated in the abdomen and pelvis. 3. No acute abnormality demonstrated in the abdomen and pelvis. Cervical Spine CT 05/25/21 17:35 IMPRESSION: 1. Mild reversal of the cervical lordosis, which may indicate muscle spasm. 2. No acute osseous abnormality of the cervical spine demonstrated. 3. There is no significant change from the prior examination. Lumbar Spine CT 05/25/21 17:35 IMPRESSION: 1. Degenerative lumbar spine changes are noted. 2. No acute abnormality of the lumbar spine demonstrated. 3. There is no interval change from the prior examination. Laboratory Results WBC 10.5 10^3/uL (4.0-10.0) H 05/26/21 04:34 RBC 4.94 10^6/uL (4.1-5.3) 05/26/21 04:34 Hgb 15.6 g/dL (11.7-16.6) 05/26/21 04:34 Hct 45.7 % (42.0-52.0) 05/26/21 04:34 MCV 92.5 fl (80-94) 05/26/21 04:34 MCH 31.6 pg (28.0-34.0) 05/26/21 04:34 MCHC 34.1 g/dL (30.0-36.0) 05/26/21 04:34 RDW 12.4 % (12.1-15.1) 05/26/21 04:34 Plt Count 287 10^3/cmm (130-400) 05/26/21 04:34 MPV 10.1 fL (7.4-10.4) 05/26/21 04:34 Neut % (Auto) 45.7 % 05/26/21 04:34 Lymph % (Auto) 36.3 % 05/26/21 04:34 [place] % (Auto) 12.3 % 05/26/21 04:34 Eos % (Auto) 4.3 % 05/26/21 04:34 Baso % (Auto) 1.2 % 05/26/21 04:34 Neut # (Auto) 4.79 10^3/uL (1.8-7.7) 05/26/21 04:34 Lymph # (Auto) 3.8 10^3/uL (0.8-4.8) 05/26/21 04:34 [place] # (Auto) 1.3 10^3/uL (0.2-0.9) H 05/26/21 04:34 Eos # (Auto) 0.5 10^3/uL (0.0-0.8) 05/26/21 04:34 Baso # (Auto) 0.1 10^3/uL (0.0-0.1) 05/26/21 04:34 Nucleated RBC % (auto) 0 % 05/26/21 04:34 Nucleated RBCs # 0.0 /100WBC 05/26/21 04:34 D-Dimer 0.73 ug/mIFEU (0-0.59) H 05/25/21 12:27 Sodium 138 mmol/L (136-145) 05/26/21 04:34 Potassium 3.7 mmol/L (3.5-5.1) 05/26/21 04:34 Chloride 103 mmol/L (98-107) 05/26/21 04:34 Carbon Dioxide 21 mmol/L (22-29) L 05/26/21 04:34 Anion Gap 17.7 (5-19) 05/26/21 04:34 BUN 13 mg/dL (6-20) 05/26/21 04:34 Creatinine 0.7 mg/dL (0.7-1.2) 05/26/21 04:34 GFR Calculation 122.0 mL/min (90-130) 05/26/21 04:34 Glucose 61 mg/dL (65-115) L 05/26/21 04:34 Calculated Osmolality 284 mOsm/kg (285-295) L 05/26/21 04:34 Calcium 10.0 mg/dL (8.5-10.5) 05/26/21 04:34 Total Bilirubin 0.4 mg/dL (0.15-1.2) 05/26/21 04:34 AST 22 U/L (0-40) 05/26/21 04:34 ALT 32 U/L (0-41) 05/26/21 04:34 Alkaline Phosphatase 88 IU/L (40-130) 05/26/21 04:34 Lactate Dehydrogenase 171 U/L (135-225) 05/25/21 19:10 Troponin T Baseline 6 ng/L (0-15) 05/25/21 12:27 Troponin T 120 Minute 6.00 ng/L (0-15) 05/25/21 02:40 Delta Troponin T 0 ABS# (0-10) 05/25/21 02:40 Troponin T Hi Sens 6Hr 6.00 ng/L (0-15) 05/25/21 19:10 Troponin T Hi Sens 6Hr Delta 0 ng/L (0-12) 05/25/21 19:10 Total Protein 7.2 g/dL (6.6-8.7) 05/26/21 04:34 Albumin 4.2 g/dL (3.5-5.2) 05/26/21 04:34 Globulin 3.0 g/dL (1.3-4.6) 05/26/21 04:34 Carcinoembryonic Ag 2.6 ng/mL (0.0-4.7) 05/25/21 19:10 Urine Opiates Screen Positive ng/mL (Negative) H 05/26/21 09:23 Ur Barbiturates Screen Negative ng/mL (Negative) 05/26/21 09:23 Ur Phencyclidine Scrn Negative ng/mL (Negative) 05/26/21 09:23 Ur Amphetamines Screen Negative ng/mL (Negative) 05/26/21 09:23 U Benzodiazepines Scrn Negative ng/mL (Negative) 05/26/21 09:23 Urine Cocaine Screen Negative ng/mL (Negative) 05/26/21 09:23 U Marijuana (THC) Screen Negative ng/mL (Negative) 05/26/21 09:23 Vitals Last Vital Signs Temp 98.4 F 05/26/21 11:29 Pulse 71 05/26/21 11:29 Resp 18 05/26/21 11:29 BP 120/76 05/26/21 11:29 Pulse Ox 97 05/26/21 08:29 Discharge Plan Discharge Patient Disposition: Home Condition: Stable Prescriptions: New lisinopril 10 mg Tablet 10 mg PO DAILY Qty: 30 3RF nitroglycerin 0.4 mg Tablet, Sublingual 0.4 mg sublingual Q5M PRN (Reason: Chest Pain) Qty: 20 0RF Effexor XR 75 mg capsule,extended release 24hr 75 mg PO DAILY Qty: 30 3RF Depakote ER 500 mg tablet extended release 24 hr 500 mg PO DAILY Qty: 60 1RF albuterol sulfate 90 mcg/actuation HFA aerosol inhaler 2 inh inhalation 6XD PRN (Reason: shortness of breath or wheezing) Qty: 8.5 1RF Discharge Orders: Discharge Order (Routine); Ordered 05/26/21 Ordered By: Torrey Cheney Referrals: Lj Bryan DO [Physician] - 1-3 days (Please call [facility] and request an appointment to be seen as new patient/ hospital follow up. We would like for you to be seen within the next 10 days if possible. ) Datar,Sachin White MD [Physician] - 7-10 days Discharge Diet: Cardiac Discharge Activity: Increase activity as tolerated Patient Instructions: Opioid Safety Discharge Attestations Time Spent in Discharge Care*: other Quality Metrics Clinical Quality Measures [ No reported AMI, CVA or VTE this stay] Coding Level of Care Code Acute Chg FW DC note Diagnoses Chest pain R07.9 Hemoptysis R04.2 Chronic migraine without aura, intractable, with status migrainosus G43.711 Seizure R56.9 Hilar lymphadenopathy R59.0
== END 2021-05-26 15:26 | disposition home or self-care (01) ==
LOC: ER 12:47 → MEDSURG 16:32
PROVIDERS: Admitting Provider Internal Medicine; Emergency Provider Emergency Medicine; Visit Provider Internal Medicine
DX: R07.89 Other chest pain (principal); R04.2 Hemoptysis; G43.711 Chronic migraine without aura, intractable, with status migrainosus; R56.9 Unspecified convulsions; R59.0 Localized enlarged lymph nodes; I10 Essential (primary) hypertension; Z82.49 Family history of ischemic heart disease and other diseases of the circulatory system; Z83.3 Family history of diabetes mellitus; Z82.3 Family history of stroke; F17.210 Nicotine dependence, cigarettes, uncomplicated
CPT/HCPCS: 36415; 70450; 71045; 71275; 72125; 72131; 74176; 80048; 80053; 80306; 82378; 83615; 84484; 85025; 85378; 93005; 93306; 96372; 96374; 96375; 99285; G0378; J1650; J1885; J2270; Q9967

== ENCOUNTER 2021-09-06 13:20 | Outpatient (CLI) | payer MEDICAID, SELFPAY ==
[2021-09-06 14:33] LABS: Erythrocyte Sedimentation Rate 2 mm/hr (0-10)
[2021-09-06 15:09] LABS: Vitamin B12 714 pg/mL (232-1245)
[2021-09-06 15:12] LABS: Folate Level 17.8 ng/mL (4.5-32.2)
== END 2021-09-06 13:21 | disposition home or self-care (01) ==
PROVIDERS: PCP Family Medicine; Visit Provider Specialist
DX: R20.0 Anesthesia of skin (principal); R20.2 Paresthesia of skin; Z79.899 Other long term (current) drug therapy
CPT/HCPCS: 36415; 82607; 82746; 85651

== ENCOUNTER 2021-10-25 09:59 | Outpatient (CLI) | payer MEDICAID, SELFPAY ==
--- NOTE | 2021-10-25 11:00 | MR_ITS ---
WS: [id number] MRI HEAD WITHOUT CONTRAST TECHNIQUE: Sagittal T1, T2 axial, T2 axial FLAIR, axial and coronal T1 images, axial susceptibility w eighted imaging, axial diffusion weighted images, and coronal T2 images were obtained. CLINICAL INFORMATION: R56.9 - Unspecified convulsions COMPARISON: CT head May 25, 2021. MRI June 14, 2019 FINDINGS: No evidence of restricted diffusion to suggest acute ischemia. Ventricular system and basal cisterns are patent. No suspicious intracranial signal abnormalities. Normal posterior fossa. Normal vascular flow voids at the skull base. No extra-axial fluid collections. No evidence of mass or mass effect. M ucosal thickening with partial opacification of the ethmoid air cells. Mild mucosal thickening in the LEFT greater than RIGHT maxillary sinuses and sphenoid sinuses. No hemosiderin on susceptibly weight ed images. Mastoid air cells are well aerated. Visualized orbits are normal. Normal optic chiasm and pituitary i nfundibulum. Temporal lobes and hippocampal formations are normal in appearance. No abnormalities in the mesial temporal lobes. Normal cavernous sinuses and Meckel's cave. MR/MR head wo con* [id number] IMPRESSION: 1. No evidence restricted diffusion to suggest acute ischemia. 2. No suspicious intracranial signal abnormalities. Normal camacho-white differen tiation. 3. Temporal lobes and hippocampal formations are normal in appearance. No sign al abnormalities in the mesial temporal lobes. 4. Inflammatory changes in the paranasal sinuses with partial opacification of the ethmoid air cells. Mastoid air cells are well aerated. 5. No significant changes since June 14, 2019
== END 2021-10-25 10:00 | disposition home or self-care (01) ==
LOC: RAD 09:59
PROVIDERS: PCP Family Medicine; Visit Provider Specialist
DX: R56.9 Unspecified convulsions (principal)
CPT/HCPCS: 70551

== ENCOUNTER 2021-11-15 12:39 | Outpatient (CLI) | payer BC, SELFPAY ==
--- NOTE | 2021-11-15 13:04 | CT_ITS ---
WS: [id number] CT CHEST WITHOUT INTRAVENOUS CONTRAST HISTORY: F/U PET FOR POSITIVE LUNG NODULES TECHNIQUE: Contiguous 5 mm axial imaging performed on the thorax. Coronal and sagittal reformats are submitted. All CT scans at [facility] use at least one of these dose optimization techniques: automated exposure control; mA and/or kV adjustment per patient size (includes targeted exams where dose is matched to clinical indication); or iterative reconstruction. CONTRAST: None DLP: 860.51 mGy.cm COMPARISON: Chest CT 05/25/2021, 11/25/[address] 06/16/2021 Lungs and central airway: Mild pulmonary hyperexpansion. Numerous small pulmonary nodules are noted i n the LEFT lower lobe. These nodules have decreased in size slightly since the PET/CT of 06/16/2021. T he largest nodule in the lateral LEFT lower lobe measures 9 mm in diameter. There is an additional 9 mm nodule just posterior to the LEFT heart. There are additional smaller lymph nodes in the LEFT lowe r lobe which have either resolved or are smaller in size. None of these nodules have increased in siz e. Pleura: Normal. No pleural effusion. Heart and pericardium: Normal size heart with no pericardial effusion. Mediastinum and betsy: PET/CT positive LEFT hilar lymph node is difficult to visualize as a discrete s eparate structure without IV contrast. There is some very minimal residual fullness at the LEFT hilum and it does appear less full as compared to the prior study but confident measurement cannot be made . No contralateral lymph nodes. Vessels: Mild atherosclerosis aorta. Normal size pulmonary artery. Chest wall and lower neck: Small axillary lymph nodes. Upper abdomen: No adrenal mass. Small hiatal hernia. Unenhanced liver is negative. Osseous structures: No destructive process. CT/CT chest wo con [id number] IMPRESSION: 1. Slight decrease in size of the previously described multiple LEFT lower lob e pulmonary nodules. Largest nodule has decreased in size from 16 to 9 mm. No n ew nodule or increasing size. 2. The PET/CT positive LEFT hilar lymph nodes difficult to accurately visualiz e and measure without IV contrast. 3. No contralateral adenopathy.
--- NOTE | 2021-11-15 13:59 | PFTS_ITS ---
Date of Study:11/15/21 Date of Dictation: MECHANICS: Forced vital capacity (FVC) is normal. Forced expiratory volume in one second (FEV1) is normal. FEV1/FVC is normal. FLOW VOLUME LOOP: Normal. LUNG VOLUMES: Total lung capacity (TLC) is normal. Residual volume (RV) is normal. DIFFUSING CAPACITY FOR CARBON MONOXIDE: Normal. INTERPRETATION: The prebronchodilator spirometry is normal. No postbronchodilator spirometry was performed. Lung volumes are normal. Gas exchange (DLCO) is normal. MTDD
== END 2021-11-15 12:40 | disposition home or self-care (01) ==
LOC: RT 12:40
PROVIDERS: PCP Family Medicine; Visit Provider Internal Medicine Pulmonary Disease
DX: R91.8 Other nonspecific abnormal finding of lung field (principal)
CPT/HCPCS: 71250; 94010; 94726; 94729

== ENCOUNTER → 2021-11-26 14:23 | Outpatient (BNVA) | payer BC, SELFPAY | PROVIDERS: PCP Family Medicine; Visit Provider Internal Medicine Pulmonary Disease | DX: R91.8 Other nonspecific abnormal finding of lung field (principal); G40.909 Epilepsy, unspecified, not intractable, without status epilepticus; Z87.891 Personal history of nicotine dependence | CPT/HCPCS: 99214 ==

== ENCOUNTER 2022-02-18 12:56 | Emergency (ER) | payer BC, MEDICAID, SELFPAY ==
[2022-02-18 13:01] VITALS: BMI 35.2
--- NOTE | 2022-02-18 13:06 | ECG_ITS ---
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 Measurements Intervals [place] Rate: 75 P: 7 [place]: 134 QRS: 7 QRSD: 91 T: 53 QT: 379 QTc: 424 Interpretive Statements SINUS RHYTHM MINIMAL VOLTAGE CRITERIA FOR LVH, CONSIDER NORMAL VARIANT [MEETS CRITERIA IN ONE OF: R(aVL), S(V1), R(V5), R(V5/V6)+S(V1)] Compared to ECG 05/25/2021 18:38:35 Myocardial infarct finding no longer present Electronically Signed On 02-18-2022 22:53:47 CDT by Silvana Carranza M.D. [email or web address]
[2022-02-18 13:07] VITALS: BP 143/77; PULSE 82; RESP 18; TEMP 36.1; O2SAT 96
--- NOTE | 2022-02-18 13:41 | PC.NURSE ---
pt reports he came to ED for symptoms of a heart attack. specified symptoms of chest pain with radiation to back and left arm, and dsypnea. symptoms started 2 days ago but worsened yesterday. pt reports yesterday the pain was so severe that he had a seizure causing a black eye. pt alert and oriented, skin pink/warm/dry. lung sounds clear throughout.
[2022-02-18 14:07] VITALS: PULSE 78; RESP 14; O2SAT 93
--- NOTE | 2022-02-18 14:36 | XR_ITS ---
WS: [id number] Exam: XR chest 1V portable [id number] Date/Time of Exam: 02/18/2022 2:40 PM Reason For Exam: cp Comparison 05/25/2021. Findings: The lungs are clear and fully expanded. Costophrenic angles are sharp. No infiltrates. Bronchovascula r relief appears normal. Cardiac silhouette is unremarkable. Bony elements are intact. XR/XR chest 1V portable [id number] IMPRESSION: Unremarkable chest radiograph.
[2022-02-18 14:52] LABS: Basophils # 0.1 10^3/uL (0.0-0.1); Basophils % 0.6 %; Eosinophils # 0.4 10^3/uL (0.0-0.8); Eosinophils % 4.2 %; Hematocrit 46.2 % (42.0-52.0); Hemoglobin 15.6 g/dL (11.7-16.6); Lymphocytes # 1.3 10^3/uL (0.8-4.8); Lymphocytes % 15.8 %; Mean Corpuscular HGB Conc 33.8 g/dL (30.0-36.0); Mean Corpuscular Volume 91.7 fl (80-94); Mean Platelet Volume 9.9 fL (7.4-10.4); Monocytes % 12.4 %; Neutrophils # 5.62 10^3/uL (1.8-7.7); Neutrophils % 66.6 %; Nucleated Red Blood Cells % 0 %; Platelet Count 303 10^3/cmm (130-400); Red Blood Count 5.04 10^6/uL (4.1-5.3); Red Cell Distribution Width 12.3 % (12.1-15.1); White Blood Count 8.4 10^3/uL (4.0-10.0)
[2022-02-18 15:00] VITALS: PULSE 88; O2SAT 97
[2022-02-18 15:06] LABS: Troponin(5th) Baseline 7 ng/L (0-15)
[2022-02-18 15:16] LABS: Alanine Aminotransferase 29 U/L (0-41); Albumin Level 4.3 g/dL (3.5-5.2); Alkaline Phosphatase 111 U/L (40-130); Anion Gap 15.3 (5-19); Aspartate Amino Transferase 26 U/L (0-40); Blood Urea Nitrogen 18 mg/dL (6-20); Calcium 9.5 mg/dL (8.5-10.5); Carbon Dioxide 24 mmol/L (22-29); Chloride 106 mmol/L (98-107); Glomerular Filtration Rate 90.8 mL/min (90-130); Glucose 95 mg/dL (65-115); NT Pro B Type Natriuretic Pept 11 pg/mL (0-125); Osmolality Calculated 294 mOsm/kg (285-295); Potassium 4.3 mmol/L (3.5-5.1); Sodium 141 mmol/L (136-145); Total Bilirubin 0.5 mg/dL (0.15-1.2); Total Protein 7.3 g/dL (6.6-8.7)
--- NOTE | 2022-02-18 15:34 | ED_ITS ---
HPI - Chest Pain General: Chief Complaint: Chest Pain Stated Complaint: Chest Pain Time Seen by Provider: 02/18/22 14:51 Source: patient Mode of arrival: ambulatory History of Present Illness: 46-year-old male who presents to the emergency room complaining of chest pain radiating to his left shoulder that is LR he states its been constant since last evening. He did use some nitro this morning he states he had a seizure and fell and hit his face he has had what he describes as 800 seizures since December 2018 he is not on any antiseizure medications. According to him he had seen Dr. Franks and she put him on venlafaxine and referred him to [facility] for his seizures. In addition to this he has had some hemoptysis he has seen Dr. Monae for this and is being monitored and evaluated. He has no known history of coronary disease, he is mildly hypertensive and is on lisinopril. He has some COPD and is on inhaled medicatio ns he denies any history of diabetes. MD complaint: chest pain Onset (ago): day(s) Timing of current episode: episodic Prior episodes: Yes Onset: during rest Pain location: left chest Pain radiation: none Severity: mild Quality: tightness, aching and heaviness Relieving factors: nothing Exacerbating factors: nothing Associated symptoms: Deny abdominal pain, diaphoresis, dyspnea, fever(s), leg edema, nausea, palpitations, sense of impending doom, syncope or vomiting Review of Systems Const: Denies: fever(s), chills or diaphoresis ENMT: Denies: throat pain, ear or mastoid pain, nasal discharge or nasal congestion Card: Reports: chest pain; Denies: palpitations or syncope Resp: Reports: productive cough and hemoptysis; Denies: dyspnea or non-productive cough GI: Denies: abdominal pain, nausea or vomiting : Denies: flank pain, dysuria, urinary frequency or urinary urgency Skin/Breast: Denies: rash or pruritus PFSH ED PFSH: Medical History Chronic migraine without aura, intractable, with status migrainosus Seizure Surgical History History of shoulder surgery Family History Other Diabetes Hypertension Stroke Denies family history of CAD (coronary artery disease) Cancer Social History Smoking and tobacco status: former smoker (6 months ) Quit status (tobacco): has quit using tobacco Year quit tobacco: cigarettes 2020 Former quit date comment: 0.5ppd x 15 years, vaping for approx 1 year, quit approx 1 month ago Alcohol intake: current Alcohol intake frequency: few times a month Alcohol t ype: wine History of recent travel: No Physical Exam Const: GENERAL APPEARANCE: cooperative and comfortable ORIENTATION/CONSCIOUSNESS: Yes awake, Yes oriented to person, Yes oriented to place and Yes oriented to time HENMT: COMMON NORMALS: normocephalic, atraumatic, hearing grossly normal bilaterally, external ears normal, EAC's normal, TM's normal bilaterally, Normal nasal mucous membranes and turbinates present, moist oral mucous membranes and oropharynx normal HEAD & SCALP: normocephalic and atraumatic NOSE: Normal nasal mucous membranes and turbinates present EXTERNAL EAR: Yes external ears normal EXTERNAL AUDITORY CANAL: EAC's normal TYMPANIC MEMBRANE: TM's normal bilaterally Eye: COMMON NORMALS: Equal, round and reactive pupils present, EOMs intact bilaterally, conjunctivae normal and no scleral icterus CONJUNCTIVA: Yes conjunctivae normal PUPIL: Yes Equal, round and reactive pupils present Neck/C-Spine: COMMON NORMALS: full ROM, no lymphadenopathy, supple and no JVD Lymph: LYMPHATIC: no lymphadenopathy noted and no lymphedema noted Resp: COMMON NORMALS: normal respiratory effort, No retractions, No use of accessory muscles and clear to auscultation bilaterally AUSCULTATION: clear to auscultation bilaterally Cardio: COMMON NORMALS: no JVD, regular rate, regular rhythm and No murmurs present (Cardio) RATE: regular rate RHYTHM: regular rhythm GI: COMMON NORMALS: Soft to palpation and No hepatosplenomegaly present AUSCULTATION: Yes normoactive bowel sounds PALPATION: Yes Soft to palpation, No Tenderness to palpation present (GI), No Guarding due to palpation present (GI) and Yes No hepatosplenomegaly present Extremity: COMMON NORMALS: normal to inspection, capillary refill normal, no clubbing, cyanosis or edema, no calf tenderness and no pedal edema Neuro: SENSORIUM/ORIENTATION: Yes oriented to person, Yes oriented to place and Yes oriented to time Skin: COMMON NORMALS: no rashes or lesions noted GENERAL SKIN EXAM: no rashes or lesions noted Course Vital Signs: Vital signs: Vital Signs Temperature 96.9 F L 02/18/22 13:07 Pulse Rate 82 02/18/22 16:47 Respiratory Rate 16 02/18/22 16:47 Blood Pressure 128/91 02/18/22 16:47 Pulse Oximetry 96 02/18/22 16:47 Oxygen Delivery Me thod 02/18/22 16:15 MDM - Chest Pain Medical Decision Making Labs imaging and EKGs reviewed no acute changes noted troponin is unremarkable. We will discharge patient home set up outpatient stress testing. Medical Records I reviewed the patient's medical records. Lab Data I reviewed the patient's lab results. : 02/18/22 13:53 02/18/22 13:53 Radiology Impressions Chest X-Ray 02/18/22 14:36 IMPRESSION: Unremarkable chest radiograph. Laboratory Results WBC 8.4 10^3/uL (4.0-10.0) 02/18/22 13:53 RBC 5.04 10^6/uL (4.1-5.3) 02/18/22 13:53 Hgb 15.6 g/dL (11.7-16.6) 02/18/22 13:53 Hct 46.2 % (42.0-52.0) 02/18/22 13:53 MCV 91.7 fl (80-94) 02/18/22 13:53 MCH 31.0 pg (28.0-34.0) 02/18/22 13:53 MCHC 33.8 g/dL (30.0-36.0) 02/18/22 13:53 RDW 12.3 % (12.1-15.1) 02/18/22 13:53 Plt Count 303 10^3/cmm (130-400) 02/18/22 13:53 MPV 9.9 fL (7.4-10.4) 02/18/22 13:53 Neut % (Auto) 66.6 % 02/18/22 13:53 Lymph % (Auto) 15.8 % 02/18/22 13:53 [place] % (Auto) 12.4 % 02/18/22 13:53 Eos % (Auto) 4.2 % 02/18/22 13:53 Baso % (Auto) 0.6 % 02/18/22 13:53 Neut # (Auto) 5.62 10^3/uL (1.8-7.7) 02/18/22 13:53 Lymph # (Auto) 1.3 10^3/uL (0.8-4.8) 02/18/22 13:53 [place] # (Auto) 1.0 10^3/uL (0.2-0.9) H 02/18/22 13:53 Eos # (Auto) 0.4 10^3/uL (0.0-0.8) 02/18/22 13:53 Baso # (Auto) 0.1 10^3/uL (0.0-0.1) 02/18/22 13:53 Nucleated RBC % (auto) 0 % 02/18/22 13:53 Nucleated RBCs # 0.0 /100WBC 02/18/22 13:53 Sodium 141 mmol/L (136-145) 02/18/22 13:53 Potassium 4.3 mmol/L (3.5-5.1) 02/18/22 13:53 Chloride 106 mmol/L (98-107) 02/18/22 13:53 Carbon Dioxide 24 mmol/L (22-29) 02/18/22 13:53 Anion Gap 15.3 (5-19) 02/18/22 13:53 BUN 18 mg/dL (6-20) 02/18/22 13:53 Creatinine 0.9 mg/dL (0.7-1.2) 02/18/22 13:53 GFR Calculation 90.8 mL/min (90-130) 02/18/22 13:53 Glucose 95 mg/dL (65-115) 02/18/22 13:53 Calculated Osmolality 294 mOsm/kg (285-295) 02/18/22 13:53 Calcium 9.5 mg/dL (8.5-10.5) 02/18/22 13:53 Total Bilirubin 0.5 mg/dL (0.15-1.2) 02/18/22 13:53 AST 26 U/L (0-40) 02/18/22 13:53 ALT 29 U/L (0-41) 02/18/22 13:53 Alkaline Phosphatase 111 U/L (40-130) 02/18/22 13:53 Troponin T Baseline 7 ng/L (0-15) 02/18/22 13:53 Troponin T 120 Minute 6.99 ng/L (0-15) 02/18/22 15:43 Delta Troponin T -0.01 ABS# (0-10) L 02/18/22 15:43 NT-Pro-B Natriuret Pep 11 pg/mL (0-125) 02/18/22 13:53 Total Protein 7.3 g/dL (6.6-8.7) 02/18/22 13:53 Albumin 4.3 g/dL (3.5-5.2) 02/18/22 13:53 Globulin 3.0 g/dL (1.3-4.6) 02/18/22 13:53 Discharge Plan Discharge Patient Disposition: Home Clinical Impression: Atypical chest pain Condition: Stable Prescriptions: No Action Spiriva Respimat 2.5 mcg/actuation mist 2 puff inhalation DAILY Qty: 4 3RF lisinopril 20 mg tablet 20 mg PO DAILY Qty: 30 2RF Effexor XR 75 mg capsule,extended release 24hr 75 mg PO DAILY Qty: 30 3RF albuterol sulfate 90 mcg/actuation HFA aerosol inhaler 2 inh inhalation 6XD PRN (Reason: shortness of breath or wheezing) Qty: 8.5 1RF nitroglycerin 0.4 mg tablet, sublingual 0.4 mg sublingual Q5M PRN (Reason: Chest Pain) Qty: 20 0RF ibuprofen 200 mg Tablet 400 mg PO Q6H PRN (Reason: Pain) Discharge Orders: Discharge ED (Routine); Ordered 02/18/22 Ordered By: Lucas Ashraf Referrals: Lj Bryan DO [Primary Care Provider] - Discharge Diet: Usual diet Discharge Activity: Resume usual activity Patient Instructions: Opioid Safety, Pain Management Activity Restrictions/Additional Instructions: Case managment will call with an appointment for a stress test. Coding Level of Care Code ED Operator [employer] for Shiv[employer] Fwd Exam Comprehensive
[2022-02-18 16:15] VITALS: BP 115/69; PULSE 89; O2SAT 93
[2022-02-18 16:25] LABS: Troponin 5 2HR 6.99 ng/L (0-15)
[2022-02-18 16:37] LABS: Troponin 5 2HR Delta -0.01 ABS# (0-10)
[2022-02-18 16:47] VITALS: BP 128/91; PULSE 82; RESP 16; O2SAT 96
--- NOTE | 2022-03-05 12:22 | DCPLANNER ---
Addendum entered by Ellyn Rosas 05/07/22 13:53: Patient had a stress test scheduled - patient did not attend appointment Original Note: manager market development had message to schedule an outpatient stress test for patient. manager market development faxed signed order to centralized scheduling, who will call patient with appointment information. manager market development also sent notification to patients primary care physician, Dr. Centeno, that the ER physician ordered the outpatient stress test.
== END 2022-02-18 16:51 | disposition home or self-care (01) ==
PROVIDERS: Physician Assistant; Emergency Provider Family Medicine; PCP Family Medicine
DX: R07.89 Other chest pain (principal); Z87.891 Personal history of nicotine dependence
CPT/HCPCS: 36415; 71045; 80053; 83880; 84484; 85025; 93005; 99285

== ENCOUNTER → 2022-02-20 15:30 | Outpatient (BNVA) | payer BC, MEDICAID, SELFPAY | PROVIDERS: PCP Family Medicine; Visit Provider Nurse Practitioner Family | DX: R29.898 Other symptoms and signs involving the musculoskeletal system (principal); M25.512 Pain in left shoulder | CPT/HCPCS: 73030 ==

== ENCOUNTER 2022-04-30 22:10 | Emergency (ER) | payer BC, MEDICAID, SELFPAY ==
[2022-04-30 22:21] VITALS: BP 150/106; PULSE 100; RESP 16; TEMP 36.9; O2SAT 98; BMI 34.9
--- NOTE | 2022-04-30 22:42 | CTR_ITS ---
PROCEDURE INFORMATION: Exam: CTA Chest With Contrast Exam date and time: 04/30/2022 11:57 PM Age: 46 years old Clinical indication: Patient HX: Cough with hemoptysis. TECHNIQUE: Imaging protocol: Computed tomographic angiography of the chest with contrast. 3D rendering (Not supervised by radiologist): MIP and/or 3D reconstructed images were created by the technologist. Radiation optimization: All CT scans at this facility use at least one of these dose optimization techniques: automated exposure control; mA and/or kV adjustment per patient size (includes targeted exams where dose is matched to clinical indication); or iterative reconstruction. Contrast material: OMNI 350; Contrast volume: 100 ml; Contrast route: INTRAVENOUS (IV); COMPARISON: CT angio chest PE protcl [id number] 05/25/2021 1:12 PM RADIATION DOSE METRICS: Total DLP (mGy-cm): 344.37 FINDINGS: Limitations: Study somewhat limited due to streak artifact created by the patient being scanned with the arms at the sides. Pulmonary arteries: Allowing for streak artifacts on this examination there is no gross evidence of pulmonary embolism. Aorta: There is no thoracic aortic aneurysm or dissection. Lungs: There is mild dependent atelectasis at the lung bases. Cluster of small nodules left lower lobe, largest measuring 10 mm not significantly changed compared with 10/26/2021. Additional follow-up recommended. Pleural spaces: Unremarkable. No pneumothorax. No pleural effusion. Heart: Unremarkable. No cardiomegaly. No pericardial effusion. Coronary arteries: There is moderate atherosclerotic calcification of the coronary arteries. Lymph nodes: There is mild left hilar adenopathy decreased compared with 05/25/2021. There are small paratracheal lymph nodes smaller than on the prior study also. Bones/joints: Unremarkable. No acute fracture. Soft tissues: Unremarkable. CT/CT angio chest PE protcl [id number] IMPRESSION: 1. Stable appearance of left lower lobe pulmonary nodules. Additional follow-up in 6-12 months recommended. 2. No evidence for pulmonary embolism. 3. Decrease in hilar adenopathy.
--- NOTE | 2022-04-30 23:41 | ECG_ITS ---
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 Measurements Intervals [place] Rate: 85 P: 44 [place]: 142 QRS: 14 QRSD: 89 T: 56 QT: 374 QTc: 446 Interpretive Statements SINUS RHYTHM POSSIBLE LEFT ATRIAL ENLARGEMENT [-0.1mV P-WAVE IN V1/V2] SEPTAL MYOCARDIAL INFARCTION , OF INDETERMINATE AGE [40+ ms Q WAVE IN V1/V2] Compared to ECG 02/18/2022 13:06:35 Myocardial infarct finding now present Electronically Signed On 05-01-2022 10:27:47 COMMUNICATIONS OFFICER by Andrew Franco M.D. [id number] f
--- NOTE | 2022-04-30 23:43 | W.ED.GENADLT ---
HPI - General Adult General: Chief complaint: Medical Clearance Stated complaint: RASH/RESP. Time Seen by Provider: 04/30/22 22:38 Source: patient and police Mode of arrival: ambulatory Limitations: no limitations History of Present Illness: 46-year-old male who was arrested this evening he was brought here by police for medical clearance. He states that he has cancer he states has been coughing up some blood states he also has sores all over his body appear to be likely from methamphetamine abuse he has no signs of any fever he has not had any pain no vomiting or diarrhea he is in no distress here with no dyspnea. Associated symptoms: Reports dyspnea; Deny chest pain, headache(s), nausea, rash or vomiting Review of Systems Const: Denies: fever(s), chills, body aches or change in appetite Eyes: Denies: blurry vision or eye discomfort ENMT: Denies: throat pain or dental pain Card: Denies: chest pain Resp: Reports: dyspnea and non-productive cough GI: Denies: abdominal pain, nausea, vomiting or diarrhea : Denies: dysuria Musc: Denies: neck pain or back pain Skin/Breast: Denies: rash Neuro: Denies: headache(s) Psych: Denies: depression Aris/Lymph: Denies: easy bruising All/Imm: Denies: urticaria PFSH ED PFSH: Medical History Chronic migraine without aura, intractable, with status migrainosus Seizure Surgical History History of shoulder surgery Family History Other Diabetes Hypertension Stroke Denies family history of CAD (coronary artery disease) Cancer Social History Smoking and tobacco status: former smoker (6 months ) Quit status (tobacco): has quit using tobacco Year quit tobacco: cigarettes 2020 Former quit date comment: 0.5ppd x 15 years, vaping for approx 1 year, quit approx 1 month ago Alcohol intake: current Alcohol intake frequency: few times a month Alcohol type: wine History of recent travel: No Physical Exam Const: COMMON NORMALS: no acute distress, patient oriented x3 and healthy appearing HENMT: COMMON NORMALS: normocephalic and atraumatic HEAD & SCALP: normocephalic and atraumatic Eye: COMMON NORMALS: Equal, round and reactive pupils present and EOMs intact bilaterally PUPIL: Yes Equal, round and reactive pupils present Neck/C-Spine: COMMON NORMALS: full ROM and supple Chest: COMMONS NORMALS: normal inspection of the chest and normal palpation of entire chest wall Resp: COMMON NORMALS: normal respiratory effort, No retractions, No use of accessory muscles and clear to auscultation bilaterally AUSCULTATION: clear to auscultation bilaterally Cardio: COMMON NORMALS: regular rate, regular rhythm and No murmurs present (Cardio) RATE: regular rate RHYTHM: regular rhythm GI: COMMON NORMALS: Normal to inspection, nondistended, normoactive bowel sounds present, Soft to palpation, non-tender and no masses PALPATION: Yes Soft to palpation Extremity: COMMON NORMALS: normal to inspection and full ROM Neuro: COMMON NORMALS: patient oriented x3, moves all extremities and no focal motor deficits Psych: COMMON NORMALS: mental status grossly normal, Normal thought process present and cooperative THOUGHT PROCESS: Normal thought process present Skin: COMMON NORMALS: no rashes or lesions noted and no wounds GENERAL SKIN EXAM: no rashes or lesions noted Course Vital Signs: Vital signs: Vital Signs Temperature 98.5 F 04/30/22 22:21 Pulse Rate 100 04/30/22 22:21 Respiratory Rate 16 04/30/22 22:21 Blood Pressure 150/106 04/30/22 22:21 Pulse Oximetry 98 04/30/22 22:21 Oxygen Delivery Me thod 04/30/22 22:21 [facility] - General Adult Medical Decision Making Patient presents with medical clearance for incarceration and CT shows pulmonary nodules no pneumonia or embolisms he is well-appearing here is not hypoxic he stable for discharge to police custody. Lab Data 04/30/22 23:33 04/30/22 23:33 Radiology Impressions Chest CTA 04/30/22 22:42 IMPRESSION: 1. Stable appearance of left lower lobe pulmonary nodules. Additional follow-up in 6-12 months recommended. 2. No evidence for pulmonary embolism. 3. Decrease in hilar adenopathy. Laboratory Results WBC 10.7 10^3/uL (4.0-10.0) H 04/30/22 23:33 RBC 4.50 10^6/uL (4.1-5.3) 04/30/22 23: Hgb 14.1 g/dL (11.7-16.6) 04/30/22: Hct 41.7 % (42.0-52.0) L 04/30/22: MCV 92.7 fl (80-94) 04/30/22: MCH 31.3 pg (28.0-34.0) 04/30/22: MCHC 33.8 g/dL (30.0-36.0) 04/30/22: RDW 12.5 % (12.1-15.1) 04/30/22: Plt Count 344 10^3/cmm (130-400) 04/30/22: MPV 9.8 fL (7.4-10.4) 04/30/22 23: Neut % (Auto) 62.8 % 04/30/22: Lymph % (Auto) 22.7 % 04/30/22 23: [place] % (Auto) 9.9 % 04/30/22: Eos % (Auto) 3.2 % 04/30/22: Baso % (Auto) 1.1 % 04/30/22: Neut # (Auto) 6.75 10^3/uL (1.8-7.7) 04/30/22: Lymph # (Auto) 2.4 10^3/uL (0.8-4.8) 04/30/22: [place] # (Auto) 1.1 10^3/uL (0.2-0.9) H 04/30/22: Eos # (Auto) 0.3 10^3/uL (0.0-0.8) 04/30/22: Baso # (Auto) 0.1 10^3/uL (0.0-0.1) 04/30/22: Nucleated RBC % (auto) 0 % 04/30/22: Nucleated RBCs # 0.0 /100WBC 04/30/22: PT 13.70 SECONDS (12.1-14.9) 04/30/22 23:33 INR 1.02 (0.8-1.2) 04/30/22 23:33 Sodium 141 mmol/L (136-145) 04/30/22 23:33 Potassium 3.8 mmol/L (3.5-5.1) 04/30/22 23:33 Chloride 106 mmol/L (98-107) 04/30/22 23:33 Carbon Dioxide 23 mmol/L (22-29) 04/30/22 23:33 Anion Gap 15.8 (5-19) 04/30/22 23:33 BUN 14 mg/dL (6-20) 04/30/22 23:33 Creatinine 0.7 mg/dL (0.7-1.2) 04/30/22 23:33 GFR Calculation 121.4 mL/min (90-130) 04/30/22 23:33 Glucose 78 mg/dL (65-115) 04/30/22 23:33 Calculated Osmolality 291 mOsm/kg (285-295) 04/30/22 23:33 Calcium 8.7 mg/dL (8.5-10.5) 04/30/22 23:33 Total Bilirubin 0.2 mg/dL (0.15-1.2) 04/30/22 23:33 AST 26 U/L (0-40) 04/30/22 23:33 ALT 22 U/L (0-41) 04/30/22 23:33 Alkaline Phosphatase 112 U/L (40-130) 04/30/22 23:33 Troponin T Baseline 6 ng/L (0-15) 04/30/22 23:33 Total Protein 6.5 g/dL (6.6-8.7) L 04/30/22 23:33 Albumin 4.1 g/dL (3.5-5.2) 04/30/22 23:33 Globulin 2.4 g/dL (1.3-4.6) 04/30/22 23:33 Discharge Plan Discharge Patient Disposition: Home Clinical Impression: Hemoptysis Condition: Stable Prescriptions: No Action Spiriva Respimat 2.5 mcg/actuation mist 2 puff inhalation DAILY Qty: 4 3RF lisinopril 20 mg tablet 20 mg PO DAILY Qty: 30 2RF Effexor XR 75 mg capsule,extended release 24hr 75 mg PO DAILY Qty: 30 3RF nitroglycerin 0.4 mg tablet, sublingual 0.4 mg sublingual Q5M PRN (Reason: Chest Pain) Qty: 20 0RF albuterol sulfate [Ventolin HFA] 90 mcg/actuation HFA aerosol inhaler See Rx Instructions .ROUTE .COMPLEX Qty: 18 1RF Dose Instruction: INHALE TWO PUFFS BY MOUTH SIX TIMES PER DAY as needed for SHORTNESS OF BREATH OR WHEEZING Rx Instructions: INHALE TWO PUFFS BY MOUTH SIX TIMES PER DAY as needed for SHORTNESS OF BREATH OR WHEEZING ibuprofen 200 mg Tablet 400 mg PO Q6H PRN (Reason: Pain) Discharge Orders: Discharge ED (Routine); Ordered 05/01/22 Ordered By: Douglas De Referrals: Lj Bryan DO [Primary Care Provider] - 1-3 days Discharge Diet: Advance as tolerated Discharge Activity: Resume usual activity Patient Instructions: Coughing Up Blood (Hemoptysis) (ED) Coding Level of Care Code ED Grinder Tender for Chg Fwd Exam Comprehensive
[2022-04-30] MEDS: LORazepam 2 mg/mL INJ 1 mL IVP (23:47)
[2022-05-01] LABS: Basophils # 0.1 10^3/uL (0.0-0.1); Basophils % 1.1 %; Eosinophils # 0.3 10^3/uL (0.0-0.8); Eosinophils % 3.2 %; Hematocrit 41.7 % (42.0-52.0); Hemoglobin 14.1 g/dL (11.7-16.6); Lymphocytes # 2.4 10^3/uL (0.8-4.8); Lymphocytes % 22.7 %; Mean Corpuscular HGB Conc 33.8 g/dL (30.0-36.0); Mean Corpuscular Hemoglobin 31.3 pg (28.0-34.0); Mean Corpuscular Volume 92.7 fl (80-94); Mean Platelet Volume 9.8 fL (7.4-10.4); Monocytes # 1.1 10^3/uL (0.2-0.9); Monocytes % 9.9 %; Neutrophils # 6.75 10^3/uL (1.8-7.7); Neutrophils % 62.8 %; Nucleated Red Blood Cells % 0 %; Platelet Count 344 10^3/cmm (130-400); Red Cell Distribution Width 12.5 % (12.1-15.1); White Blood Count 10.7 10^3/uL (4.0-10.0)
[2022-05-01] MEDS: iohexol 350 mg/mL 500 mL Btl (per mL) IV (00:11)
[2022-05-01 00:15] LABS: INR 1.02 (0.8-1.2)
[2022-05-01 00:22] LABS: Alanine Aminotransferase 22 U/L (0-41); Albumin Level 4.1 g/dL (3.5-5.2); Alkaline Phosphatase 112 U/L (40-130); Anion Gap 15.8 (5-19); Aspartate Amino Transferase 26 U/L (0-40); Blood Urea Nitrogen 14 mg/dL (6-20); Calcium 8.7 mg/dL (8.5-10.5); Carbon Dioxide 23 mmol/L (22-29); Chloride 106 mmol/L (98-107); Globulin 2.4 g/dL (1.3-4.6); Glomerular Filtration Rate 121.4 mL/min (90-130); Glucose 78 mg/dL (65-115); Osmolality Calculated 291 mOsm/kg (285-295); Potassium 3.8 mmol/L (3.5-5.1); Sodium 141 mmol/L (136-145); Total Bilirubin 0.2 mg/dL (0.15-1.2); Total Protein 6.5 g/dL (6.6-8.7)
[2022-05-01 00:23] LABS: Troponin(5th) Baseline 6 ng/L (0-15)
== END 2022-05-01 02:00 | disposition home or self-care (01) ==
PROVIDERS: Emergency Provider Emergency Medicine; PCP Family Medicine
DX: R04.2 Hemoptysis (principal); Z87.891 Personal history of nicotine dependence
CPT/HCPCS: 71275; 80053; 84484; 85025; 85610; 93005; 99285; J2060; Q9967

== ENCOUNTER 2022-05-23 09:54 | Outpatient (CLI) | payer BC, MEDICAID, SELFPAY ==
--- NOTE | 2022-05-23 09:00 | CT_ITS ---
WS: [id number] CT CHEST TECHNIQUE: Noncontrast CT of the chest with coronal and sagittal reformatted images. CLINICAL INFORMATION: 6 month f/u lung nodules COMPARISON: CT chest November 15, 2021. PET/CT June 16, 2021. DLP: 452.[address] scans at [facility] use at least one of these dose optimization techniques: automated e xposure control; mA and/or kV adjustment per patient size (includes targeted exams where dose is matc hed to clinical indication); or iterative reconstruction. FINDINGS: Previously described LEFT lower lobe pulmonary nodules the largest measuring 9 mm unchanged since Oct. Smaller surrounding satellite nodules appear unchanged largest measuring 5-6 mm. No new s uspicious pulmonary parenchymal opacities. Previously described LEFT hilar lymphadenopathy appears im proved compared to the prior PET/CT and unchanged from November 15, 2021. Difficult to further evaluate w ithout IV contrast. Additional small noncalcified nodules adjacent to the LEFT heart border LEFT lower lobe measuring 6 m m and [address]/CT chest wo con [id number] IMPRESSION: 1. Previously described suspicious nodule in the LEFT lower lobe laterally carly sures approximately 9 mm unchanged from November 15, 2021. Stable smaller surroundi ng satellite nodules. 2. Additional nodules adjacent to the LEFT heart border are unchanged measurin g 6 mm and 9 mm. 3. No evidence of progression of the previously described FDG avid LEFT hilar lymph nodes. These appear improved from the prior PET/CT. 4. Recommend [address] follow-up. 5. No other significant interval changes.
== END 2022-05-23 09:55 | disposition home or self-care (01) ==
LOC: RAD 09:55
PROVIDERS: PCP Family Medicine; Visit Provider Internal Medicine Pulmonary Disease
DX: R91.8 Other nonspecific abnormal finding of lung field (principal)
CPT/HCPCS: 71250

== ENCOUNTER → 2022-06-24 09:28 | Outpatient (BNVA) | payer BC, MEDICAID, SELFPAY | PROVIDERS: PCP Family Medicine; Visit Provider Family Medicine | DX: R35.89 Other polyuria (principal); R73.09 Other abnormal glucose; L21.9 Seborrheic dermatitis, unspecified; E11.9 Type 2 diabetes mellitus without complications | CPT/HCPCS: 80048; 80061; 83036; 84443 ==

== ENCOUNTER → 2022-12-27 10:33 | Outpatient (BNVA) | payer BC, MEDICAID, SELFPAY | PROVIDERS: PCP Family Medicine; Visit Provider Internal Medicine Pulmonary Disease | DX: R91.8 Other nonspecific abnormal finding of lung field (principal); G40.909 Epilepsy, unspecified, not intractable, without status epilepticus; F17.200 Nicotine dependence, unspecified, uncomplicated; J45.909 Unspecified asthma, uncomplicated; J30.2 Other seasonal allergic rhinitis | CPT/HCPCS: 36415; 82785; 86003 ==

== ENCOUNTER 2023-02-01 01:25 | Emergency (ER) | payer BC, MEDICAID, SELFPAY ==
[2023-02-01 01:28] VITALS: BP 162/102; PULSE 18; RESP 20; TEMP 36.7; O2SAT 98; BMI 33.0
--- NOTE | 2023-02-01 01:30 | ECG_ITS ---
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 Measurements Intervals [place] Rate: 95 P: 0 [place]: 0 QRS: 64 QRSD: 68 T: 77 QT: 332 QTc: 417 Interpretive Statements ATRIAL FIBRILLATION WITH ABERRANT CONDUCTION OR VENTRICULAR PREMATURE COMPLEXES SEPTAL MYOCARDIAL INFARCTION , PROBABLY OLD [40+ ms Q WAVE IN V1/V2] Compared to ECG 04/30/2022 23:41:12 Ventricular premature complex(es) now present Aberrant conduction of supraventricular beat(s) now present Sinus rhythm no longer present Myocardial infarct finding still present Electronically Signed On 02-02-2023 22:55:55 CDT by Andrew Franco M.D. [id number] f
[2023-02-01 01:39] VITALS: BP 129/88; PULSE 92; RESP 24; O2SAT 98
--- NOTE | 2023-02-01 01:50 | XRR_ITS ---
PROCEDURE INFORMATION: Exam: XR Chest Exam date and time: 02/01/2023 1:52 AM Age: 47 years old Clinical indication: Pain; Shortness of breath; Chest pressure; Patient HX: C/O cp with SOB. ; Additional info: Cp SOB TECHNIQUE: Imaging protocol: Radiologic exam of the chest. Views: 1 view. COMPARISON: CT chest wo con [id number] 05/23/2022 10:04 AM FINDINGS: Lungs: Clear, symmetrically inflated lungs. Pleural spaces: No pleural effusion. No pneumothorax. Heart/Mediastinum: Cardiac silhouette is normal in size for technique. Bones/joints: Age appropriate. XR/XR chest 1V portable [id number] IMPRESSION: No acute cardiopulmonary abnormality.
[2023-02-01 01:56] LABS: Basophils # 0.1 10^3/uL (0.0-0.1); Basophils % 0.9 %; Eosinophils # 0.5 10^3/uL (0.0-0.8); Eosinophils % 4.7 %; Hematocrit 42.7 % (37-53); Lymphocytes # 3.6 10^3/uL (0.8-4.8); Lymphocytes % 35.7 %; Mean Corpuscular Hemoglobin 31.7 pg (27-33); Mean Corpuscular Volume 93.4 fl (82-101); Mean Platelet Volume 9.6 fL (7.4-10.4); Monocytes # 0.9 10^3/uL (0.2-0.9); Neutrophils % 49.5 %; Nucleated Red Blood Cells % 0 %; Platelet Count 300 10^3/cmm (157-399); Red Blood Count 4.57 10^6/uL (3.85-5.65); Red Cell Distribution Width 12.4 % (12.1-15.1); White Blood Count 10.09 10^3/uL (3.29-11.43)
[2023-02-01] MEDS: haloperidol inj 5 mg/mL INJ 1 mL 3 MG IVP (02:04)
[2023-02-01] MEDS: morphine 4 mg/mL SDV 1 mL IVP (02:05)
[2023-02-01 02:06] VITALS: BP 114/77; PULSE 100; RESP 24; O2SAT 96
[2023-02-01 02:09] LABS: Troponin(5th) Baseline < 6 ng/L (0-15)
[2023-02-01 02:28] LABS: Alanine Aminotransferase 32 U/L (0-41); Albumin Level 4.3 g/dL (3.5-5.2); Alkaline Phosphatase 120 U/L (40-130); Blood Urea Nitrogen 19 mg/dL (6-20); Calcium 9.2 mg/dL (8.5-10.5); Carbon Dioxide 25 mmol/L (22-29); Chloride 102 mmol/L (98-107); Globulin 2.4 g/dL (1.3-4.6); Glomerular Filtration Rate 90.4 mL/min (90-130); Glucose 94 mg/dL (65-115); NT Pro B Type Natriuretic Pept 36 pg/mL (0-125); Osmolality Calculated 292 mOsm/kg (285-295); Sodium 140 mmol/L (136-145); Total Bilirubin 0.2 mg/dL (0.15-1.2); Total Protein 6.7 g/dL (6.6-8.7)
[2023-02-01 02:32] LABS: Anion Gap 17.2 (5-19); Aspartate Amino Transferase 25 U/L (0-40); Potassium 4.2 mmol/L (3.5-5.1)
[2023-02-01] MEDS: methylPREDNISolone sod succ 125 MG in water for injection-sterile 2 ML 24 MG IVP (02:56)
[2023-02-01 03:33] VITALS: BP 115/69; PULSE 91; RESP 18; O2SAT 95
--- NOTE | 2023-02-01 17:23 | W.ED.CHESTPA ---
HPI - Chest Pain General: Chief Complaint: Chest Pain Stated Complaint: Chest pains Time Seen by Provider: 02/01/23 01:35 Source: patient History of Present Illness: 47 year old male with history of seizure disorder and asthma. Presents with chest discomfort and shortness of breath. This started earlier in the evening. He was at rest. Minimal cough. No fever. No lower extremity swelling. He denies a history of coronary disease. MD complaint: chest pain Associated symptoms: Reports dyspnea, nausea and palpitations; Deny abdominal pain, fever(s) or vomiting Review of Systems Const: Denies: fever(s) ENMT: Denies: throat pain Card: Reports: chest pain and palpitations Resp: Reports: dyspnea GI: Reports: nausea; Denies: abdominal pain or vomiting Skin/Breast: Denies: rash Neuro: Reports: dizziness Psych: Reports: anxiety PFSH ED PFSH: Medical History Chronic migraine without aura, intractable, with status migrainosus Seizure Surgical History History of shoulder surgery Family History Other Diabetes Hypertension Stroke Denies family history of CAD (coronary artery disease) Cancer Social History Smoking and tobacco status: former smoker (6 months ) Quit status (tobacco): has quit using tobacco Year quit tobacco: cigarettes 2020 Former quit date comment: 0.5ppd x 15 years, vaping for approx 1 year, quit approx 1 month ago Alcohol intake: former Substance/Drug Use: never Physical Exam Const: GENERAL APPEARANCE: cooperative, in distress and anxious; not ill appearing and not frail appearing HENMT: COMMON NORMALS: normocephalic, atraumatic and Normal external nose present HEAD & SCALP: normocephalic and atraumatic FACE & SINUS: normal facial exam and face symmetric NOSE: Normal external nose present Eye: COMMON NORMALS: Equal, round and reactive pupils present and EOMs intact bilaterally PUPIL: Yes Equal, round and reactive pupils present Neck/C-Spine: GENERAL: Yes trachea midline Chest: CHEST: Yes Symmetrical chest wall rise Resp: COMMON NORMALS: normal respiratory effort, No retractions, No use of accessory muscles and clear to auscultation bilaterally AUSCULTATION: clear to auscultation bilaterally Cardio: COMMON NORMALS: regular rate and regular rhythm RATE: regular rate RHYTHM: regular rhythm GI: COMMON NORMALS: Normal to inspection, nondistended, normoactive bowel sounds present Extremity: COMMON NORMALS: no pedal edema Neuro: ALFONSO COMA SCALE: document GCS findings Sunset coma scale eye opening: Spontaneous Sunset coma scale verbal response: Orientated Sunset coma scale motor response: Obey commands Sunset coma scale total score: 15 SENSORY EXAM: Yes extremities (intact) Psych: COMMON NORMALS: speech normal SPEECH: Yes normal speech Skin: COMMON NORMALS: no rashes or lesions noted GENERAL SKIN EXAM: no rashes or lesions noted Course Vital Signs: Vital signs: Vital Signs Temperature 98.1 F 02/01/23 01:28 Pulse Rate 91 02/01/23 03:33 Respiratory Rate 18 02/01/23 03:33 Blood Pressure 115/69 02/01/23 03:33 Pulse Oximetry 95 02/01/23 03:33 Oxygen Delivery Me thod Room Air 02/01/23 02:06 MDM - Chest Pain Medical Decision Making The patient arrived quite anxious, hypertensive, in some distress and pain. Symptoms are resolved after 4 milligrams of IV morphine, and intravenous haloperidol. EKG showed a sinus rhythm without definite ST wave changes. Troponin is non detectable. Other laboratory findings are negative. His BNP is 36. His chest X-ray shows no acute findings. With resolution of symptoms, he'll be discharged. close outpatient follow up, to return for worsening symptoms. Lab Data 02/01/23 01:39 02/01/23 01:39 Radiology Impressions Chest X-Ray 02/01/23 01:50 IMPRESSION: No acute cardiopulmonary abnormality. Laboratory Results WBC 10.09 10^3/uL (3.29-11.43) 02/01/23 01:39 RBC 4.57 10^6/uL (3.85-5.65) 02/01/23 01:39 Hgb 14.50 g/dL (11.27-16.99) 02/01/23 01:39 Hct 42.7 % (37-53) 02/01/23 01:39 MCV 93.4 fl (82-101) 02/01/23 01:39 MCH 31.7 pg (27-33) 02/01/23 01:39 MCHC 34.0 g/dL (30-55) 02/01/23 01:39 RDW 12.4 % (12.1-15.1) 02/01/23 01:39 Plt Count 300 10^3/cmm (157-399) 02/01/23 01:39 MPV 9.6 fL (7.4-10.4) 02/01/23 01:39 Neut % (Auto) 49.5 % 02/01/23 01:39 Lymph % (Auto) 35.7 % 02/01/23 01:39 [place] % (Auto) 9.0 % 02/01/23 01:39 Eos % (Auto) 4.7 % 02/01/23 01:39 Baso % (Auto) 0.9 % 02/01/23 01:39 Neut # (Auto) 5.00 10^3/uL (1.8-7.7) 02/01/23 01:39 Lymph # (Auto) 3.6 10^3/uL (0.8-4.8) 02/01/23 01:39 [place] # (Auto) 0.9 10^3/uL (0.2-0.9) 02/01/23 01:39 Eos # (Auto) 0.5 10^3/uL (0.0-0.8) 02/01/23 01:39 Baso # (Auto) 0.1 10^3/uL (0.0-0.1) 02/01/23 01:39 Nucleated RBC % (auto) 0 % 02/01/23 01:39 Nucleated RBCs # 0.0 /100WBC 02/01/23 01:39 Sodium 140 mmol/L (136-145) 02/01/23 01:39 Potassium 4.2 mmol/L (3.5-5.1) 02/01/23 01:39 Chloride 102 mmol/L (98-107) 02/01/23 01:39 Carbon Dioxide 25 mmol/L (22-29) 02/01/23 01:39 Anion Gap 17.2 (5-19) 02/01/23 01:39 BUN 19 mg/dL (6-20) 02/01/23 01:39 Creatinine 0.9 mg/dL (0.7-1.2) 02/01/23 01:39 GFR Calculation 90.4 mL/min (90-130) 02/01/23 01:39 Glucose 94 mg/dL (65-115) 02/01/23 01:39 Calculated Osmolality 292 mOsm/kg (285-295) 02/01/23 01:39 Calcium 9.2 mg/dL (8.5-10.5) 02/01/23 01:39 Total Bilirubin 0.2 mg/dL (0.15-1.2) 02/01/23 01:39 AST 25 U/L (0-40) 02/01/23 01:39 ALT 32 U/L (0-41) 02/01/23 01:39 Alkaline Phosphatase 120 U/L (40-130) 02/01/23 01:39 Troponin T Baseline < 6 ng/L (0-15) 02/01/23 01:39 NT-Pro-B Natriuret Pep 36 pg/mL (0-125) 02/01/23 01:39 Total Protein 6.7 g/dL (6.6-8.7) 02/01/23 01:39 Albumin 4.3 g/dL (3.5-5.2) 02/01/23 01:39 Globulin 2.4 g/dL (1.3-4.6) 02/01/23 01:39 XR interpretation done by ED provider, pending radiology final review Discharge Plan Discharge Patient Disposition: Home Clinical Impression: Chest pain Condition: Stable Prescriptions: Continued prednisone 20 mg tablet 20 mg PO DAILY Qty: 5 0RF No Action celecoxib [Celebrex] 100 mg capsule 100 mg PO BID Qty: 60 2RF albuterol sulfate [Ventolin HFA] 90 mcg/actuation HFA aerosol inhaler 1 inh inhalation QID Qty: 8.5 6RF Trelegy Ellipta 100-62.5-25 mcg blister with device 1 inh inhalation DAILY Qty: 60 6RF nitroglycerin 0.4 mg tablet, sublingual 0.4 mg sublingual Q5M PRN (Reason: Chest Pain) Qty: 20 0RF lisinopril 20 mg tablet See Rx Instructions .ROUTE .COMPLEX Qty: 90 2RF Dose Instruction: TAKE ONE TABLET BY MOUTH EVERY DAY Rx Instructions: TAKE ONE TABLET BY MOUTH EVERY DAY ketoconazole 2 % shampoo See Rx Instructions topical .COMPLEX Qty: 120 0RF Rx Instructions: Use 5-10 mL to affected scalp, leave on for 5-10 minutes and rinse. Use on M,W,F x 4 weeks. hydrocortisone 1 % cream 1 applic topical DAILY Qty: 28.4 1RF Rx Instructions: Apply small amount to lesions on face daily. Do not use longer than 2 weeks continuously. ketoconazole 2 % cream 1 applic topical DAILY Qty: 30 1RF atorvastatin 40 mg tablet 40 mg PO DAILY Qty: 90 3RF ibuprofen 200 mg Tablet 400 mg PO Q6H PRN (Reason: Pain) Discharge Orders: Discharge ED (Routine); Ordered 02/01/23 Ordered By: Yon Pierre Referrals: Lj Bryan, [Primary Care Provider] - 1-3 days Patient Instructions: Chest Pain (ED), Opioid Safety, Pain Management Activity Restrictions/Additional Instructions: Use your inhaler every 4 hours while awake for the next 48 hours scheduled, then as needed to follow. Medication as directed otherwise. Return for worsening symptoms despite treatment. Coding Level of Care Code ED Draw [employer] for Nawaf Patterson
== END 2023-02-01 03:12 | disposition home or self-care (01) ==
PROVIDERS: Emergency Provider Emergency Medicine; PCP Family Medicine
DX: R07.9 Chest pain, unspecified (principal); Z87.891 Personal history of nicotine dependence
CPT/HCPCS: 71045; 80053; 83880; 84484; 85025; 93005; 96374; 96375; 99285; J1630; J2270; J2930

== ENCOUNTER 2023-07-15 16:01 | Emergency (ER) | payer BC, MEDICAID, SELFPAY ==
[2023-07-15 16:05] VITALS: BP 159/99; PULSE 105; RESP 24; TEMP 37.1; O2SAT 99
--- NOTE | 2023-07-15 16:09 | CTR_ITS ---
PROCEDURE INFORMATION: Exam: CT Chest With Contrast; Diagnostic Exam date and time: 07/15/2023 4:49 PM Age: 47 years old Clinical indication: Injury or trauma; Other: Tree branch fell on patient striking back of head and neck, left arm and chest pain TECHNIQUE: Imaging protocol: Diagnostic computed tomography of the chest with contrast. Radiation optimization: All CT scans at this facility use at least one of these dose optimization techniques: automated exposure control; mA and/or kV adjustment per patient size (includes targeted exams where dose is matched to clinical indication); or iterative reconstruction. Contrast material: OMNI 350; Contrast volume: 100 ml; Contrast route: INTRAVENOUS (IV); COMPARISON: CT chest wo con [id number] 05/23/2022 10:[address] chest wo con [id number] 11/15/2021 1:[address] angio chest PE protcl [id number] 05/25/2021 1:12 PM RADIATION DOSE METRICS: Total DLP (mGy-cm): 542.01 FINDINGS: Lungs: Stable 7 mm nodule in the left lower lobe (series 3, image 40. Stable 9 mm left lower lobe nodule, image 43. Two adjacent small satellite nodules have decreased in size measuring 2 mm and 3 mm. The lungs are otherwise clear. Pleural spaces: Unremarkable. No pneumothorax. No pleural effusion. Heart: Unremarkable. No cardiomegaly. No pericardial effusion. Lymph nodes: Unremarkable. No enlarged lymph nodes. Vasculature: Unremarkable. No aortic aneurysm. Bones/joints: Mild leftward curvature of the upper thoracic spine. Mild degenerative changes. No fracture. Soft tissues: Unremarkable. CT/CT chest w con* [id number] IMPRESSION: 1. No acute findings. 2. Multiple left pulmonary nodules measuring up to 9 mm have remained stable or decreased in size. Greater than 2 year stability favors a benign etiology.
--- NOTE | 2023-07-15 16:09 | XRR_ITS ---
PROCEDURE INFORMATION: Exam: XR Left Foot Exam date and time: 07/15/2023 4:20 PM Age: 47 years old Clinical indication: Injury or trauma; Fall; Blunt trauma; Foot; Left TECHNIQUE: Imaging protocol: Radiologic exam of the left foot. Views: 3 or more views. COMPARISON: CR XR foot LT min 3V* [id number] 07/04/2019 10:28 PM FINDINGS: Bones/joints: The bones are intact and in normal alignment. No fracture. Stable degenerative changes of the 1st metatarsophalangeal joint. Increased large plantar calcaneus spur. Soft tissues: Normal. XR/XR foot LT min 3V* [id number] IMPRESSION: No acute findings.
--- NOTE | 2023-07-15 16:09 | CTR_ITS ---
PROCEDURE INFORMATION: Exam: CT Head Without Contrast Exam date and time: 07/15/2023 4:40 PM Age: 47 years old Clinical indication: Injury or trauma; Other: Tree branch fell on patient striking back of head and neck, left arm and chest pain TECHNIQUE: Imaging protocol: Computed tomography of the head without contrast. Radiation optimization: All CT scans at this facility use at least one of these dose optimization techniques: automated exposure control; mA and/or kV adjustment per patient size (includes targeted exams where dose is matched to clinical indication); or iterative reconstruction. COMPARISON: MR head wo con* [id number] 10/25/2021 10:15 AM RADIATION DOSE METRICS: Total DLP (mGy-cm): 1151 FINDINGS: Brain: No midline shift. Ventricles, cisterns, and sulci are normal. No mass, acute infarct, hemorrhage, or extraaxial fluid collection. Cerebral ventricles: No ventriculomegaly. Paranasal sinuses: Visualized sinuses are unremarkable. No fluid levels. Mastoid air cells: Visualized mastoid air cells are well aerated. Bones/joints: Unremarkable. No acute fracture. Soft tissues: Unremarkable. CT/CT head wo con* [id number] IMPRESSION: No acute intracranial abnormality.
--- NOTE | 2023-07-15 16:09 | CTR_ITS ---
PROCEDURE INFORMATION: Exam: CT Cervical Spine Without Contrast Exam date and time: 07/15/2023 4:44 PM Age: 47 years old Clinical indication: Injury or trauma; Other: Tree branch fell on patient striking back of head and neck, left arm and chest pain TECHNIQUE: Imaging protocol: Computed tomography of the cervical spine without contrast. Radiation optimization: All CT scans at this facility use at least one of these dose optimization techniques: automated exposure control; mA and/or kV adjustment per patient size (includes targeted exams where dose is matched to clinical indication); or iterative reconstruction. COMPARISON: CT cervical spin wo con* [id number] 05/25/2021 10:29 PM RADIATION DOSE METRICS: Total DLP (mGy-cm): 332.43 FINDINGS: Bones/joints: Alignment is normal but there is reversal of cervical lordosis. No fracture. Degenerative disc disease most prominently C5-C6. Diffuse facet arthropathy. Lungs: Lung apices are normal. Soft tissues: Unremarkable. CT/CT cervical spin wo con* [id number] IMPRESSION: No acute findings.
--- NOTE | 2023-07-15 16:16 | ED_ITS ---
HPI - Head Injury 2 General: Chief complaint: Head Injury Stated complaint: Fall Time Seen by Provider: 07/15/23 16:02 Source: patient and EMS Mode of arrival: EMS Limitations: no limitations History of Present Illness: 47-year-old male states that he was walk ing had a tree branch fall and hit him in the back of the neck. He states he has pain to the base of his neck and back of his head he also has pain in the right shoulder and chest pain. He states he had some mild chest pains for over the last week. He is unsure if he lost consciousness he also has left foot pain. Associated symptoms: Reports neck pain; Deny nausea or vomiting Review of Systems 2 Const: Denies: fever(s), chills, body aches or change in appetite ENMT: Denies: throat pain or dental pain Card: Reports: chest pain Resp: Denies: dyspnea GI: Denies: abdominal pain, nausea, vomiting or diarrhea : Denies: dysuria Musc: Reports: neck pain, back pain and extremity pain Skin/Breast: Denies: rash Neuro: Denies: headache(s) PFSH ED 2 PFSH: Medical History Phlebitis and thrombophlebitis Superficial venous thrombosis of left arm Seizure Chronic migraine without aura, intractable, with status migrainosus Surgical History History of shoulder surgery Family History Other Diabetes Hypertension Stroke Denies family history of CAD (coronary artery disease) Cancer Social History Smoking and tobacco/nicotine status: former use of tobacco/nicotine (6 months ) Quit status (tobacco/nicotine): has quit using Year quit tobacco: cigarettes 2020 Former quit date comment: 0.5ppd x 15 years, vaping for approx 1 year, quit approx 1 month ago Alcohol intake: former Substance/Drug Use: never Physical Exam 2 Const: COMMON NORMALS: no acute distress, patient oriented x3 and healthy appearing HENMT: COMMON NORMALS: normocephalic and atraumatic HEAD & SCALP: n ormocephalic and atraumatic Eye: COMMON NORMALS: Equal, round and reactive pupils present and EOMs intact bilaterally PUPIL: Yes Equal, round and reactive pupils present Neck/C-Spine: OTHER: In c-collar complaining of neck pain Chest: COMMONS NORMALS: normal inspection of the chest Resp: COMMON NORMALS: normal respiratory effort Cardio: COMMON NORMALS: regular rate, regular rhythm and No murmurs present (Cardio) RATE: regular rate RHYTHM: regular rhythm Extremity: COMMON NORMALS: normal to inspection and full ROM NARRATIVE EXTREMITY EXAM: There is noted left toe he also has tenderness to right scapula and right chest wall Neuro: COMMON NORMALS: patient oriented x3, moves all extremities and no focal motor deficits Psych: COMMON NORMALS: mental status grossly normal, Normal thought process present and cooperative THOUGHT PROCESS: Normal thought process present Skin: COMMON NORMALS: no rashes or lesions noted and no wounds GENERAL SKIN EXAM: no rashes or lesions noted Course 2 Vital Signs: Vital signs: Vital Signs Temperature 98.7 F 07/15/23 16:05 Pulse Rate 99 07/15/23 17:14 Respiratory Rate 18 07/15/23 17:14 Blood Pressure 146/99 07/15/23 17:14 Pulse Oximetry 97 07/15/23 17:14 MDM - Head Injury Medcial Decision Making Patient presents here with contusion to his neck and back, and tree limb imaging here is all normal no fractures noted patient stable for discharge Medical Records I reviewed the patient's medical records. Lab Data I reviewed the patient's lab results. 07/15/23 17:06 07/15/23 17:06 Radiology Impressions Cervical Spine CT 07/15/23 16:09 IMPRESSION: No acute findings. Chest CT 07/15/23 16:09 IMPRESSION: 1. No acute findings. 2. Multiple left pulmonary nodules measuring up to 9 mm have remained stable or decreased in size. Greater than 2 year stability favors a benign etiology. Foot X-Ray 07/15/23 16:09 IMPRESSION: No acute findings. Head CT 07/15/23 16:09 IMPRESSION: No acute intracranial abnormality. Laboratory Results WBC 9.86 10^3/uL (3.29-11.43) 07/15/23 17:06 RBC 4.39 10^6/uL (3.85-5.65) 07/15/23 17:06 Hgb 13.50 g/dL (11.27-16.99) 07/15/23 17:06 Hct 39.9 % (37-53) 07/15/23 17:06 MCV 90.9 fl (82-101) 07/15/23 17:06 MCH 30.8 pg (27-33) 07/15/23 17:06 MCHC 33.8 g/dL (30-55) 07/15/23 17:06 RDW 12.1 % (12.1-15.1) 07/15/23 17:06 Plt Count 301 10^3/cmm (157-399) 07/15/23 17:06 MPV 9.2 fL (7.4-10.4) 07/15/23 17:06 Neut % (Auto) 60.2 % 07/15/23 17:06 Lymph % (Auto) 25.1 % 07/15/23 17:06 [place] % (Auto) 10.2 % 07/15/23 17:06 Eos % (Auto) 3.2 % 07/15/23 17:06 Baso % (Auto) 1.0 % 07/15/23 17:06 Neut # (Auto) 5.93 10^3/uL (1.8-7.7) 07/15/23 17:06 Lymph # (Auto) 2.5 10^3/uL (0.8-4.8) 07/15/23 17:06 [place] # (Auto) 1.0 10^3/uL (0.2-0.9) H 07/15/23 17:06 Eos # (Auto) 0.3 10^3/uL (0.0-0.8) 07/15/23 17:06 Baso # (Auto) 0.1 10^3/uL (0.0-0.1) 07/15/23 17:06 Nucleated RBC % (auto) 0 % 07/15/23 17:06 Nucleated RBCs # 0.0 /100WBC 07/15/23 17:06 Sodium 140 mmol/L (136-145) 07/15/23 17:06 Potassium 3.7 mmol/L (3.5-5.1) 07/15/23 17:06 Chloride 106 mmol/L (98-107) 07/15/23 17:06 Carbon Dioxide 24 mmol/L (22-29) 07/15/23 17:06 Anion Gap 13.7 (5-19) 07/15/23 17:06 BUN 16 mg/dL (6-20) 07/15/23 17:06 Creatinine 1.0 mg/dL (0.7-1.2) 07/15/23 17:06 GFR Calculation 80.1 mL/min (90-130) L 07/15/23 17:06 Glucose 99 mg/dL (65-115) 07/15/23 17:06 Calculated Osmolality 291 mOsm/kg (285-295) 07/15/23 17:06 Calcium 8.6 mg/dL (8.5-10.5) 07/15/23 17:06 Total Bilirubin 0.4 mg/dL (0.15-1.2) 07/15/23 17:06 AST 21 U/L (0-40) 07/15/23 17:06 ALT 21 U/L (0-41) 07/15/23 17:06 Alkaline Phosphatase 109 U/L (40-130) 07/15/23 17:06 Troponin T Baseline 7 ng/L (0-15) 07/15/23 17:06 Total Protein 6.0 g/dL (6.6-8.7) L 07/15/23 17:06 Albumin 3.8 g/dL (3.5-5.2) 07/15/23 17:06 Globulin 2.2 g/dL (1.3-4.6) 07/15/23 17:06 All radiology interpretation(s) finalized by discharge EKG Data EKG 1: I personally reviewed and interpreted this EKG as follows: EKG interpretation date: 07/15/23 EKG interpretation time: 17:45 Interpretation: nsr hr [address] or t wave abnormalities qrs 89 qtc 412 Discharge Plan Discharge Patient Disposition: Home Clinical Impression: Contusion of neck Condition: Stable Prescriptions: New methocarbamol 750 mg tablet 750 mg PO Q6H PRN (Reason: spasms) Qty: 20 0RF No Action nitroglycerin 0.4 mg tablet, sublingual 0.4 mg sublingual Q5M PRN (Reason: Chest Pain) Qty: 20 0RF atorvastatin 40 mg tablet 40 mg PO DAILY Qty: 90 3RF celecoxib [Celebrex] 100 mg capsule 100 mg PO BID Qty: 60 2RF Trelegy Ellipta 100-62.5-25 mcg blister with device 1 inh inhalation DAILY Qty: 60 6RF lisinopril 20 mg tablet 20 mg PO DAILY Ventolin HFA 90 mcg/actuation HFA aerosol inhaler 1 inh inhalation QID PRN (Reason: Shortness Of Breath) ibuprofen 200 mg Tablet 400 mg PO Q6H PRN (Reason: Pain) Discharge Orders: Discharge ED (Routine); Ordered 07/15/23 Ordered By: Douglas De Referrals: Lj Bryan DO [Primary Care Provider] - 4-7 days Discharge Diet: Advance as tolerated Discharge Activity: Resume usual activity Patient Instructions: Contusion in Adults (ED) Coding Level of Care Code ED [employer] for Nawaf Patterson
[2023-07-15] MEDS: iohexol 350 mg/mL 500 mL Btl (per mL) IV (16:51)
[2023-07-15 17:11] VITALS: RESP 17; O2SAT 96
[2023-07-15] MEDS: HYDROmorphone 1 mg/mL INJ 1 mL IVP (17:11)
[2023-07-15 17:14] VITALS: BP 146/99; PULSE 99; RESP 18; O2SAT 97
[2023-07-15 17:20] LABS: Basophils # 0.1 10^3/uL (0.0-0.1); Eosinophils # 0.3 10^3/uL (0.0-0.8); Eosinophils % 3.2 %; Hematocrit 39.9 % (37-53); Lymphocytes # 2.5 10^3/uL (0.8-4.8); Lymphocytes % 25.1 %; Mean Corpuscular HGB Conc 33.8 g/dL (30-55); Mean Corpuscular Hemoglobin 30.8 pg (27-33); Mean Corpuscular Volume 90.9 fl (82-101); Mean Platelet Volume 9.2 fL (7.4-10.4); Monocytes % 10.2 %; Neutrophils # 5.93 10^3/uL (1.8-7.7); Neutrophils % 60.2 %; Nucleated Red Blood Cells % 0 %; Platelet Count 301 10^3/cmm (157-399); Red Blood Count 4.39 10^6/uL (3.85-5.65); Red Cell Distribution Width 12.1 % (12.1-15.1); White Blood Count 9.86 10^3/uL (3.29-11.43)
--- NOTE | 2023-07-15 17:45 | ECG_ITS ---
[facility] Test Date: 2023-07-15 Pat Name: Ricci Brock Department: Room: Gender: Male [employer]: : 1975 Requested By: Douglas De Order Number: [id number] Geovany MD: Andrew Franco M.D. Measurements Intervals [place] Rate: 81 P: 50 MD: 146 QRS: 15 QRSD: 89 T: 51 QT: 375 QTc: 436 Interpretive Statements SINUS RHYTHM Compared to ECG 02/01/2023 01:30:05 Atrial fibrillation no longer present Ventricular premature complex(es) no longer present Aberrant conduction of supraventricular beat(s) no longer present Myocardial infarct finding no longer present Electronically Signed On 07-15-2023 21:29:51 CDT by Andrew Franco M.D. [email or web address]
[2023-07-15 17:47] LABS: Troponin(5th) Baseline 7 ng/L (0-15)
[2023-07-15 17:49] LABS: Alanine Aminotransferase 21 U/L (0-41); Albumin Level 3.8 g/dL (3.5-5.2); Alkaline Phosphatase 109 U/L (40-130); Anion Gap 13.7 (5-19); Aspartate Amino Transferase 21 U/L (0-40); Blood Urea Nitrogen 16 mg/dL (6-20); Calcium 8.6 mg/dL (8.5-10.5); Carbon Dioxide 24 mmol/L (22-29); Chloride 106 mmol/L (98-107); Creatinine Clr Calc Pharmacy 108.6023; Globulin 2.2 g/dL (1.3-4.6); Glomerular Filtration Rate 80.1 mL/min (90-130); Glucose 99 mg/dL (65-115); Osmolality Calculated 291 mOsm/kg (285-295); Potassium 3.7 mmol/L (3.5-5.1); Sodium 140 mmol/L (136-145); Total Bilirubin 0.4 mg/dL (0.15-1.2)
== END 2023-07-15 18:25 | disposition home or self-care (01) ==
PROVIDERS: Emergency Provider Emergency Medicine; PCP Family Medicine
DX: S10.93XA Contusion of unspecified part of neck, initial encounter (principal); Z87.891 Personal history of nicotine dependence; W20.8XXA Other cause of strike by thrown, projected or falling object, initial encounter
CPT/HCPCS: 36415; 70450; 71260; 72125; 73630; 80053; 84484; 85025; 93005; 96374; 99285; J1170; Q9967

== ENCOUNTER 2024-09-02 11:37 | Emergency (ER) | payer BC, MEDICAID, SELFPAY ==
[2024-09-02 11:42] VITALS: BP 173/132; PULSE 101; RESP 24; TEMP 36.8; O2SAT 98; BMI 30.7
--- NOTE | 2024-09-02 11:57 | XR_ITS ---
WS: [id number] XR foot LT min 3V* [id number] REASON FOR EXAM: eval for FB FINDINGS: No radiopaque soft tissue foreign body is identified. No fracture or focal bone lesion. Mild valgus subluxation at the first MTP joint with mild osteoarthritis. Minimal varus subluxation at the first TMT joint with minimal osteoarthritis. Remainder of the joint spaces of the forefoot, midfoot, and hindfoot are intact. Minor posterior and moderate anterior calcaneal enthesophytes. XR/XR foot LT min 3V* [id number] IMPRESSION: No radiopaque soft tissue foreign body identified. First toe subluxation and osteoarthritis as above. No acute bone or joint abnormality.
[2024-09-02 12:00] VITALS: PULSE 106; O2SAT 98
[2024-09-02 12:20] LABS: Basophils # 0.1 10^3/uL (0.0-0.1); Basophils % 0.7 %; Eosinophils # 0.3 10^3/uL (0.0-0.8); Eosinophils % 2.7 %; Hematocrit 48.1 % (37-53); Lymphocytes # 3.2 10^3/uL (0.8-4.8); Lymphocytes % 31.9 %; Mean Corpuscular HGB Conc 33.9 g/dL (30-55); Mean Corpuscular Hemoglobin 30.5 pg (27-33); Mean Corpuscular Volume 90.1 fl (82-101); Monocytes # 0.8 10^3/uL (0.2-0.9); Neutrophils # 5.56 10^3/uL (1.8-7.7); Neutrophils % 56.3 %; Nucleated Red Blood Cells % 0 %; Platelet Count 332 10^3/cmm (157-399); Red Blood Count 5.34 10^6/uL (3.85-5.65); Red Cell Distribution Width 12.2 % (12.1-15.1); White Blood Count 9.88 10^3/uL (3.29-11.43)
[2024-09-02 12:33] VITALS: O2SAT 96
[2024-09-02] MEDS: methylPREDNISolone sod succ 125 mg/2 mL INJ IVP (12:33)
[2024-09-02] MEDS: famotidine 20 mg/2 mL INJ IVP (12:33)
[2024-09-02 12:34] LABS: Alanine Aminotransferase 21 U/L (0-41); Alkaline Phosphatase 123 U/L (40-130); Anion Gap 15.1 (5-19); Aspartate Amino Transferase 16 U/L (0-40); Blood Urea Nitrogen 13 mg/dL (6-20); Calcium 10.3 mg/dL (8.5-10.5); Carbon Dioxide 24 mmol/L (22-29); Chloride 103 mmol/L (98-107); Globulin 3.3 g/dL (1.3-4.6); Glomerular Filtration Rate 120.4 mL/min (90-130); Glucose 112 mg/dL (65-115); Osmolality Calculated 287 mOsm/kg (285-295); Potassium 4.1 mmol/L (3.5-5.1); Sodium 138 mmol/L (136-145); Total Bilirubin 0.2 mg/dL (0.15-1.2); Total Protein 7.3 g/dL (6.6-8.7)
[2024-09-02 13:00] VITALS: BP 170/109; PULSE 93; O2SAT 98
--- NOTE | 2024-09-02 13:03 | W.ED.ALLEREA ---
HPI - Allergic Reaction General: Chief complaint: Allergic Reaction Stated complaint: Allergic Reaction Time Seen by Provider: 09/02/24 11:48 Source: patient History of Present Illness: HPI narrative: Patient is a 48-year-old male who presents with allergic reaction symptoms after starting lisinopril-HCTZ yesterday. Initially developed diffuse hives which resolved after a few hours, but symptoms recurred last night. This morning, patient experienced severe itching with widespread hives, followed by facial swelling, particularly affecting the right eye with periorbital edema. Patient also reports numbness of face and difficulty breathing. Took 50mg of Benadryl approximately 20-30 minutes prior to arrival with minimal improvement in symptoms. Denies any previous similar reactions. Related Data Home Medications ?Medication ?Instructions ?Recorded ?Confirmed fluticasone 100 mcg-salmeterol 50 1 inh inhalation BID 09/02/24 09/02/24 mcg/dose blistr powdr for inhalation (Advair Diskus) Previous Rx's ?Medication ?Instructions ?Recorded nitroglycerin 0.4 mg sublingual 0.4 mg sublingual Q5M PRN Chest 06/24/22 tablet Pain #20 tabs albuterol sulfate 90 mcg/actuation 1 inh inhalation QID PRN Shortness 08/31/24 aerosol inhaler (Ventolin HFA) Of Breath #18 grams lisinopril 20 1 tab PO DAILY #30 tabs 08/31/24 mg-hydrochlorothiazide 25 mg tablet mometasone-formoterol HFA 100 2 puff inhalation BID #13 grams 09/01/24 mcg-5 mcg/actuation aerosol inhaler (Dulera) ciprofloxacin HCl 500 mg tablet 500 mg PO BID #10 tabs 09/02/24 (Cipro) famotidine 20 mg tablet (Pepcid) 20 mg PO BID #10 tabs 09/02/24 prednisone 20 mg tablet 20 mg PO Q12H #10 tabs 09/02/24 valsartan 80 mg tablet 80 mg PO DAILY #30 tabs 09/02/24 Allergies Allergy/AdvReac Type Severity Reaction Status Date / Time bupropion (From Wellbutrin) Allergy ADR-Seizure Verified 08/31/24 14:19 lorazepam (From Ativan) Allergy Unconscious Verified 08/31/24 14:19 Sulfa (Sulfonamide Allergy ADR-Nose Verified 08/31/24 14:19 Antibiotics) Bleed [facility] PFSH: Medical History (Updated 09/02/24 @ 13:13 by Sergio Rodarte MD) Phlebitis and thrombophlebitis Superficial venous thrombosis of left arm Seizure Chronic migraine without aura, intractable, with status migrainosus Surgical History (Updated 08/31/24 @ 14:40 by Sasha Roque DO) History of tonsillectomy History of shoulder surgery Family History Other Diabetes Hypertension Stroke Denies family history of CAD (coronary artery disease) Cancer Social History Smoking and tobacco/nicotine status: former use of tobacco/nicotine Quit status (tobacco/nicotine): has quit using Year quit tobacco: cigarettes 2020 Former quit date comment: 0.5ppd x 15 years, vaping for approx 1 year, quit approx 1 month ago Alcohol intake: former Substance/Drug Use: never Physical Exam Const: COMMON NORMALS: average body habitus, alert and well nourished ORIENTATION/CONSCIOUSNESS: Yes awake OTHER: anxious HENMT: COMMON NORMALS: normocephalic and atraumatic HEAD & SCALP: normocephalic and atraumatic Eye: COMMON NORMALS: Equal, round and reactive pupils present and EOMs intact bilaterally PUPIL: Yes Equal, round and reactive pupils present Neck/C-Spine: GENERAL: Yes normal visual inspection Resp: COMMON NORMALS: normal respiratory effort, No retractions and No use of accessory muscles Cardio: COMMON NORMALS: regular rhythm and Peripheral pulses 2+ throughout RHYTHM: regular rhythm PERIPHERAL PULSES: Peripheral pulses 2+ throughout GI: COMMON NORMALS: Soft to palpation and non-tender PALPATION: Yes Soft to palpation Extremity: COMMON NORMALS: full ROM and no pedal edema Neuro: COMMON NORMALS: no focal motor deficits SENSORIUM/ORIENTATION: Yes alert Course Vital Signs: Vital signs: Vital Signs Temperature 98.2 F 09/02/24 11:42 Pulse Rate 101 H 09/02/24 11:42 Respiratory Rate 24 H 09/02/24 11:42 Blood Pressure 173/132 09/02/24 11:42 Pulse Oximetry 96 09/02/24 12:33 Oxygen Delivery Me thod Room Air 09/02/24 12:33 MDM - Allergic Reaction Medical Decision Making Review of Systems: Constitutional: Denies fever HEENT: Positive for facial swelling, eye swelling Respiratory: Positive for difficulty breathing Skin: Positive for diffuse hives, itching Neurological: Positive for facial numbness All other systems reviewed and negative Medications: Lisinopril-HCTZ (recently started) Celebrex Albuterol inhaler New inhaler (name unknown) Past Medical History: Heart problems Seizure disorder (untreated) Respiratory condition requiring inhaler use Physical Exam: General: Patient appears anxious, tremulous at times HEENT: Right eye with mild periorbital edema, normal conjunctiva Skin: Multiple scattered urticarial lesions noted on hips, multiple healed pick garcia noted Left foot: 3-4mm scabbed lesion on medial plantar surface at arch, no significant erythema or warmth Neurological: Alert and oriented Lab Results: Pending: - Complete Blood Count (CBC) - Comprehensive Metabolic Panel (CMP) - Urinalysis - Urine drug screen Imaging and Other Relevant Results: Left foot X-ray ordered to evaluate for foreign bodies Medical Decision Making: Summary Statement: 48-year-old male presenting with likely JOHNATHAN inhibitor-induced angioedema and urticaria after recently starting lisinopril-HCTZ, with progressive symptoms despite antihistamine use. Problem List: 1. Angioedema 2. Urticaria 3. Medication reaction 4. Chronic left foot wound Differential Diagnosis: 1. JOHNATHAN inhibitor-induced angioedema 2. Allergic reaction to HCTZ 3. Contact dermatitis 4. Idiopathic urticaria/angioedema ED Course: Patient received Benadryl 50mg PO prior to arrival. In ED, administered Solu-Medrol 125mg and Pepcid 20mg. Labs and imaging pending. Assessment and Plan: 1. Angioedema/Urticaria: - Possibly JOHNATHAN inhibitor-induced - Discontinue lisinopril-HCTZ immediately - Administered steroids and antihistamines - Follow up with PCP for alternative antihypertensive medication 2. Left Foot Wound: - wound from previous nail injury - X-ray to evaluate for retained foreign body - Wound care instructions provided Patient is left foot x-ray is unremarkable. No evidence of foreign body noted. His wound is healing well without any significant erythema or warmth and certainly no signs of a deep space infection or abscess. Patient was given a dose of Solu-Medrol here and Pepcid. He took 50 mg of Benadryl prior to arrival. Laboratory workup was unremarkable. I will go ahead and recommend continued steroids and Pepcid, continued antihistamine, discontinue lisinopril with hydrochlorothiazide and switch to valsartan, prescribe 5 days of ciprofloxacin for his foot wound and have him follow-up with primary care provider. Lab Data I reviewed the patient's lab results. 09/02/24 12:10 09/02/24 12:10 Radiology Impressions Foot X-Ray 09/02/24 11:57 IMPRESSION: No radiopaque soft tissue foreign body identified. First toe subluxation and osteoarthritis as above. No acute bone or joint abnormality. Laboratory Results WBC 9.88 10^3/uL (3.29-11.43) 09/02/24 12:10 RBC 5.34 10^6/uL (3.85-5.65) 09/02/24 12:10 Hgb 16.30 g/dL (11.27-16.99) 09/02/24 12:10 Hct 48.1 % (37-53) 09/02/24 12:10 MCV 90.1 fl (82-101) 09/02/24 12:10 MCH 30.5 pg (27-33) 09/02/24 12:10 MCHC 33.9 g/dL (30-55) 09/02/24 12:10 RDW 12.2 % (12.1-15.1) 09/02/24 12:10 Plt Count 332 10^3/cmm (157-399) 09/02/24 12:10 MPV 9.0 fL (7.4-10.4) 09/02/24 12:10 Neut % (Auto) 56.3 % 09/02/24 12:10 Lymph % (Auto) 31.9 % 09/02/24 12:10 [place] % (Auto) 8.0 % 09/02/24 12:10 Eos % (Auto) 2.7 % 09/02/24 12:10 Baso % (Auto) 0.7 % 09/02/24 12:10 Neut # (Auto) 5.56 10^3/uL (1.8-7.7) 09/02/24 12:10 Lymph # (Auto) 3.2 10^3/uL (0.8-4.8) 09/02/24 12:10 [place] # (Auto) 0.8 10^3/uL (0.2-0.9) 09/02/24 12:10 Eos # (Auto) 0.3 10^3/uL (0.0-0.8) 09/02/24 12:10 Baso # (Auto) 0.1 10^3/uL (0.0-0.1) 09/02/24 12:10 Nucleated RBC % (auto) 0 % 09/02/24 12:10 Nucleated RBCs # 0.0 /100WBC 09/02/24 12:10 Sodium 138 mmol/L (136-145) 09/02/24 12:10 Potassium 4.1 mmol/L (3.5-5.1) 09/02/24 12:10 Chloride 103 mmol/L (98-107) 09/02/24 12:10 Carbon Dioxide 24 mmol/L (22-29) 09/02/24 12:10 Anion Gap 15.1 (5-19) 09/02/24 12:10 BUN 13 mg/dL (6-20) 09/02/24 12:10 Creatinine 0.7 mg/dL (0.7-1.2) 09/02/24 12:10 GFR Calculation 120.4 mL/min (90-130) 09/02/24 12:10 Glucose 112 mg/dL (65-115) 09/02/24 12:10 Calculated Osmolality 287 mOsm/kg (285-295) 09/02/24 12:10 Calcium 10.3 mg/dL (8.5-10.5) 09/02/24 12:10 Total Bilirubin 0.2 mg/dL (0.15-1.2) 09/02/24 12:10 AST 16 U/L (0-40) 09/02/24 12:10 ALT 21 U/L (0-41) 09/02/24 12:10 Alkaline Phosphatase 123 U/L (40-130) 09/02/24 12:10 Total Protein 7.3 g/dL (6.6-8.7) 09/02/24 12:10 Albumin 4.0 g/dL (3.5-5.2) 09/02/24 12:10 Globulin 3.3 g/dL (1.3-4.6) 09/02/24 12:10 Urine Color Yellow (Yellow) 09/02/24 12:55 Urine Appearance Clear (CLEAR) 09/02/24 12:55 Urine pH 5.5 (5-7) 09/02/24 12:55 Ur Specific [place] 1.014 (1.005-1.030) 09/02/24 12:55 Urine Protein Negative (Negative) 09/02/24 12:55 Urine Glucose (UA) Negative (Normal) 09/02/24 12:55 Urine Ketones Negative (Negative) 09/02/24 12:55 Urine Blood Negative (Negative) 09/02/24 12:55 Urine Nitrate Negative (Negative) 09/02/24 12:55 Urine Bilirubin Negative (Negative) 09/02/24 12:55 Urine Urobilinogen 0.2 mg/dL (Negative) 09/02/24 12:55 Ur Leukocyte Esterase Negative (Negative) 09/02/24 12:55 Urine RBC 0-2 /hpf (0-2) 09/02/24 12:55 Urine WBC 0-5 /hpf (0-5) 09/02/24 12:55 Ur Squamous Epith Cells 0-5 /hpf (0-5) 09/02/24 12:55 Amorphous Sediment Not Reportable 09/02/24 12:55 Urine Bacteria None seen /hpf (NONE) 09/02/24 12:55 Hyaline Casts 0-4 /lpf H 09/02/24 12:55 Urine Opiates Screen Negative ng/mL (Negative) 09/02/24 12:55 Ur Barbiturates Screen Negative ng/mL (Negative) 09/02/24 12:55 Ur Phencyclidine Scrn Negative ng/mL (Negative) 09/02/24 12:55 Ur Amphetamines Screen Positive ng/mL (Negative) H 09/02/24 12:55 U Benzodiazepines Scrn Negative ng/mL (Negative) 09/02/24 12:55 Urine Cocaine Screen Negative ng/mL (Negative) 09/02/24 12:55 U Marijuana (THC) Screen Positive ng/mL (Negative) H 09/02/24 12:55 All radiology interpretation(s) finalized by discharge Discharge Plan Discharge Patient Disposition: Home Clinical Impression: Rash, Allergic reaction, Wound of foot Condition: Stable Prescriptions: New ciprofloxacin HCl [Cipro] 500 mg tablet 500 mg PO BID Qty: 10 0RF valsartan 80 mg tablet 80 mg PO DAILY Qty: 30 0RF prednisone 20 mg tablet 20 mg PO Q12H Qty: 10 0RF famotidine [Pepcid] 20 mg tablet 20 mg PO BID Qty: 10 0RF No Action Ventolin HFA 90 mcg/actuation HFA aerosol inhaler 1 inh inhalation QID PRN (Reason: Shortness Of Breath) Qty: 18 6RF lisinopril-hydrochlorothiazide 20-25 mg tablet 1 tab PO DAILY Qty: 30 1RF nitroglycerin 0.4 mg tablet, sublingual 0.4 mg sublingual Q5M PRN (Reason: Chest Pain) Qty: 20 0RF Dulera 100-5 mcg/actuation HFA aerosol inhaler 2 puff inhalation BID Qty: 13 1RF fluticasone propion-salmeterol [Advair Diskus] 100-50 mcg/dose blister with device 1 inh INHALATION BID Discharge Orders: Discharge ED (Routine); Ordered 09/02/24 Ordered By: Sergio Rodarte Referrals: Sasha Roque DO [Primary Care Provider, [facility]] Discharge Diet: Usual diet Discharge Activity: Increase activity as tolerated Patient Instructions: Allergic Reaction, Opioid Safety, Pain Management Activity Restrictions/Additional Instructions: Take all medication as directed. Stop taking your lisinopril. You have been prescribed a new blood pressure medication that is different than the lisinopril to hopefully avoid any allergic reaction symptoms. Follow-up with your primary care provider for recheck early next week. Return to the ER for any concerns. Print Language: Omani Coding Level of Care Code ED Gem Setter for Nawaf Patterson
[2024-09-02 13:05] LABS: Bilirubin Urine Negative (Negative); Blood Urine Negative (Negative); Glucose Urine UA Negative (Normal); Ketones Urine Negative (Negative); Leukocyte Esterase Urine Negative (Negative); Nitrate Urine Negative (Negative); Protein Urine Negative (Negative); Specific Gravity, Urine 1.014 (1.005-1.030); Urine Appearance Clear (CLEAR); Urine Color Yellow (Yellow); Urobilinogen Urine 0.2 mg/dL (Negative); pH Urine 5.5 (5-7)
[2024-09-02 13:09] LABS: Add Urine Microscopic? YES; Bacteria Urine None Seen /hpf; Hyaline Casts Urine 0-4 /lpf; RBC Urine 0-2 /hpf (0-2); Squamous Epithelial Cell Urine 0-5 /hpf (0-5); WBC Urine 0-5 /hpf (0-5)
[2024-09-02 13:12] LABS: Amphetamines Screen Urine Positive (Negative); Barbiturates Screen Urine Negative (Negative); Benzodiazepines Screen Urine Negative (Negative); Cocaine Screen Urine Negative (Negative); Opiate Screen Urine Negative (Negative); PCP Screen Urine Negative (Negative); THC Screen Urine Positive (Negative)
[2024-09-02 13:19] LABS: Add Urine Culture? No
[2024-09-02 13:30] VITALS: BP 159/91; PULSE 102; O2SAT 98
== END 2024-09-02 13:37 | disposition home or self-care (01) ==
PROVIDERS: Emergency Provider Student in an Organized Health Care Education/Training Program; PCP Family Medicine
DX: R21 Rash and other nonspecific skin eruption (principal); T78.40XA Allergy, unspecified, initial encounter; S91.332D Puncture wound without foreign body, left foot, subsequent encounter; W45.0XXD Nail entering through skin, subsequent encounter; Z87.891 Personal history of nicotine dependence
CPT/HCPCS: 36415; 73630; 80053; 80306; 81001; 85025; 96374; 96375; 99284; J2919; J3490

== ENCOUNTER 2024-10-22 09:33 | Emergency (ER) | payer BC, MEDICAID, SELFPAY ==
--- NOTE | 2024-10-22 09:35 | XR_ITS ---
WS: [id number] Exam: XR chest 1V portable [id number] Date/Time of Exam: 10/22/2024 9:35 AM Reason For Exam: chest pain Comparison 02/01/2023. Lungs are fully inflated and clear. Normal cardiomediastinal silhouette and regional bony elements. No pleural effusions. 1 cm nodular density superimposes the LEFT lower lung zone. This is most likely a nipple shadow. XR/XR chest 1V portable [id number] IMPRESSION: 1. No acute cardiopulmonary finding. 2. 1 cm soft tissue nodule superimposing the LEFT lower lung zone. This is most likely a nipple shadow. A nonemergent PA and lateral chest with nipple markers in place would be suggested for follow-up.
--- NOTE | 2024-10-22 09:39 | ECG_ITS ---
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
[2024-10-22 09:42] VITALS: BP 153/105; PULSE 90; RESP 16; TEMP 36.9; O2SAT 94; BMI 32.6
[2024-10-22 10:34] LABS: Basophils # 0.1 10^3/uL (0.0-0.1); Basophils % 1.1 %; Eosinophils # 0.6 10^3/uL (0.0-0.8); Eosinophils % 5.2 %; Lymphocytes # 3.8 10^3/uL (0.8-4.8); Lymphocytes % 32.2 %; Mean Corpuscular HGB Conc 33.3 g/dL (30-55); Mean Corpuscular Hemoglobin 30.8 pg (27-33); Mean Corpuscular Volume 92.3 fl (82-101); Monocytes # 0.9 10^3/uL (0.2-0.9); Monocytes % 7.5 %; Neutrophils # 6.26 10^3/uL (1.8-7.7); Neutrophils % 53.5 %; Nucleated Red Blood Cells % 0 %; Platelet Count 308 10^3/cmm (157-399); White Blood Count 11.71 10^3/uL (3.29-11.43)
[2024-10-22 11:05] LABS: Troponin(5th) Baseline < 6 ng/L (0-15)
[2024-10-22 11:11] LABS: Alanine Aminotransferase 29 U/L (0-41); Albumin Level 4.3 g/dL (3.5-5.2); Alkaline Phosphatase 130 U/L (40-130); Anion Gap 16.5 (5-19); Aspartate Amino Transferase 17 U/L (0-40); Blood Urea Nitrogen 20 mg/dL (6-20); Calcium 9.2 mg/dL (8.5-10.5); Carbon Dioxide 21 mmol/L (22-29); Chloride 106 mmol/L (98-107); Globulin 3.1 g/dL (1.3-4.6); Glomerular Filtration Rate 90.1 mL/min (90-130); Glucose 103 mg/dL (65-115); NT Pro B Type Natriuretic Pept 39 pg/mL (0-125); Osmolality Calculated 291 mOsm/kg (285-295); Potassium 4.5 mmol/L (3.5-5.1); Sodium 139 mmol/L (136-145); Total Bilirubin 0.2 mg/dL (0.15-1.2); Total Protein 7.4 g/dL (6.6-8.7)
== END 2024-10-22 12:59 | disposition left against medical advice (07) ==
PROVIDERS: Physician Assistant; Emergency Provider Family Medicine; PCP Family Medicine
DX: Z01.89 Encounter for other specified special examinations (principal); R07.9 Chest pain, unspecified; Z53.21 Procedure and treatment not carried out due to patient leaving prior to being seen by health care provider; R91.1 Solitary pulmonary nodule
CPT/HCPCS: 36415; 71045; 80053; 83880; 84484; 85025; 93005; 99285

== ENCOUNTER 2025-02-22 14:26 | Outpatient (CLI) | payer BC, MEDICAID, SELFPAY ==
--- NOTE | 2025-02-22 14:34 | XR_ITS ---
WS: [id number] Exam: XR hand RT min 3V* [id number] Date/Time of Exam: 02/22/2025 2:34 PM Reason For Exam: acute lateral right hand pain DLP: No acute fracture. Old proximal fifth metacarpal fracture. 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 Large hypertropic spur projects from the greater multangular between the proximal first and second metacarpals. No soft tissue foreign bodies. The remaining joints are preserved. XR/XR hand RT min 3V* [id number] IMPRESSION: 1. Degenerative changes and hypertrophic spurring at the first CMC joint as det yousif above. 2. No acute fracture. Old fracture at the base of the fifth metacarpal.
== END 2025-02-22 14:27 | disposition home or self-care (01) ==
PROVIDERS: PCP Family Medicine; Visit Provider Family Medicine
DX: M19.041 Primary osteoarthritis, right hand (principal); M77.8 Other enthesopathies, not elsewhere classified; Z87.81 Personal history of (healed) traumatic fracture
CPT/HCPCS: 73130

== ENCOUNTER 2025-03-20 18:03 | Emergency (ER) | payer BC, MEDICAID, SELFPAY ==
[2025-03-20 18:04] VITALS: BP 168/103; PULSE 96; RESP 22; TEMP 36.8; O2SAT 97; BMI 32.1
--- NOTE | 2025-03-20 18:08 | ECG_ITS ---
[facility] Test Date: 2025-03-20 Pat Name: Ricci Brock Department: Room: Gender: Male [employer] Intermediary: : 1975 Requested By: Kim Parry Order Number: [id number] Armenta MD: Erich Diallo M.D. Measurements Intervals [place] Rate: 91 P: 41 [place]: 143 QRS: 7 QRSD: 81 T: 47 QT: 337 QTc: 415 Interpretive Statements SINUS RHYTHM POSSIBLE LEFT ATRIAL ENLARGEMENT [-0.1mV P-WAVE IN V1/V2] POSSIBLE LEFT VENTRICULAR HYPERTROPHY [VOLTAGE CRITERIA PLUS LAE OR QRS WIDENING] INTERPRETATION BASED ON A DEFAULT AGE OF 40 YEARS Compared to ECG 10/22/2024 09:39:08 No significant changes Electronically Signed On 03-21-2025 10:40:54 NETWORK PROGRAM MANAGER by Erich Diallo M.D. [id number]
--- NOTE | 2025-03-20 18:24 | XRR_ITS ---
PROCEDURE INFORMATION: Exam: XR Chest Exam date and time: 03/20/2025 6:24 PM Age: 49 years old Clinical indication: Shortness of breath; Chest pressure; Prior surgery; Surgery date: 6+ months; Surgery type: Coronary stents; C/O chest pain with SOB. History of lung cancer. TECHNIQUE: Imaging protocol: Radiologic exam of the chest. Views: 1 view. COMPARISON: CR XR chest 1V portable [id number] 10/22/2024 9:38 AM FINDINGS: Lungs: No focal consolidation or other acute appearing pulmonary opacity. Pleural spaces: No pleural effusion or pneumothorax noted. Heart/Mediastinum: There is no cardiomegaly. Bones/joints: No acute osseous abnormality. Intraperitoneal space: There is no free intraperitoneal gas. XR/XR chest 1V portable [id number] IMPRESSION: No acute findings.
--- NOTE | 2025-03-20 18:49 | ED_ITS ---
HPI - Chest Pain 2 General: Chief Complaint: Chest Pain Stated Complaint: Chest Pains Time Seen by Provider: 03/20/25 18:23 Source: patient Mode of arrival: ambulatory Limitations: no limitations History of Present Illness: Patient is a 49-year-old male with a history of asthma, pulmonary nodules, hypertension, seizure disorder, and reported previous TN comes into the ED today complaining of chest pain. Patient states chest pain began yesterday evening while at rest. He felt like he was having a hard time breathing especially when lying flat. Patient states he ended up sleeping well but states he still had discomfort when he woke up this morning. 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 He denies previous cardiac stents. He cannot really tell me much regarding his last heart attack. He does tell me he has a history of pulmonary nodules and at one point was told he could have lung cancer. This reportedly was diagnosed on PET scan. He did state he recently met with psychological science professor, Dr. Iyer and is scheduled for repeat chest CT imaging. I did review her note and it looks like he had pulmonary nodules that were being routinely surveillanced. Patient with normal vital signs upon my initial examination. He appears in no acute distress. Initial EKG performed in triage was unremarkable. MD complaint: chest pain Onset (ago): day(s) (yesterday evening) Prior episodes: Yes Pain location: substernal Pain radiation: left arm Severity: moderate Quality: tightness, aching and heaviness Relieving factors: nothing Exacerbating factors: nothing Associated symptoms: Reports dyspnea; Deny abdominal pain, fever(s), nausea, palpitations, syncope or vomiting Treatment prior to arrival: none Risk Factors: Coronary artery disease risk factors: smoking history and hypertension Thoracic aortic dissection risk factors: none Related Data Home Medications ?Medication ?Instructions ?Recorded ?Confirmed mometasone-formoterol HFA 100 2 puff inhalation DAILY 03/08/25 03/08/25 mcg-5 mcg/actuation aerosol inhaler (Dulera) Previous Rx's ?Medication ?Instructions ?Recorded albuterol sulfate 90 mcg/actuation 1 inh inhalation QI D PRN Shortness 02/22/25 aerosol inhaler (Ventolin HFA) Of Breath #18 grams lisinopril 20 mg tablet 20 mg PO DAILY #30 tabs 01/27 12/20 nitroglycerin 0.4 mg sublingual 0.4 mg sublingual Q5M PRN Chest 02/22/25 tablet Pain #20 tabs montelukast 10 mg tablet 10 mg PO DAILY #30 tabs 02/26 05/22 (Singulair) Allergies Allergy/AdvReac Type Severity Reaction Status Date / Time hydrochlorothiazide Allergy Severe anaphylaxis Verified 03/20/25 18:13 bupropion (From Wellbutrin) Allergy ADR-Seizure Verified 03/20/25 18:13 lorazepam (From Ativan) Allergy Unconscious Verified 03/20/25 18:13 Sulfa (Sulfonamide Allergy ADR-Nose Verified 03/20/25 18:13 Antibiotics) Bleed Review of Systems 2 Const: Denies: fever(s), chills, body aches, fatigue or malaise Eyes: Denies: change in vision, blurry vision or photophobia Card: Reports: chest pain and orthopnea; Denies: palpitations, irregular heart rhythm, edema, swelling of feet/ankles, lightheadedness, syncope, pre-syncope, dyspnea on exertion, leg pain with exertion or acrocyanosis Resp: Reports: dyspnea and pain on inspiration; Denies: productive cough, non-productive cough, wheezing, stridor, hemoptysis or chest congestion GI: Denies: abdominal pain, nausea, vomiting, heartburn or diarrhea : Denies: difficulty urinating or dysuria Musc: Denies: neck pain, back pain, extremity pain, extremity swelling or joint pain Skin/Breast: Denies: rash Neuro: Denies: headache(s), numbness in extremities, weakness in extremities, sensory changes or dizziness PFSH ED 2 PFSH: Medical History Phlebitis and thrombophlebitis Superficial venous thrombosis of left arm Seizure Chronic migraine without aura, intractable, with status migrainosus Surgical History History of tonsillectomy History of shoulder surgery Family History Other Diabetes Hypertension Stroke Denies family history of CAD (coronary artery disease) Cancer Social History Smoking and tobacco/nicotine status: former use of tobacco/nicotine (1 ppd X 15 years. Quit in 2019) Quit status (tobacco/nicotine): has quit using Year quit tobacco: cigarettes 2020 Former quit date comment: 0.5ppd x 15 years, vaping for approx 1 year, quit approx 1 month ago Alcohol intake: former Substance/Drug Use: never Physical Exam 2 Const: COMMON NORMALS: no acute distress, average body habitus, patient oriented x3, no limitations, healthy appearing, alert and well nourished G ENERAL APPEARANCE: cooperative ORIENTATION/CONSCIOUSNESS: Yes awake, Yes oriented to person, Yes oriented to place and Yes oriented to time HENMT: COMMON NORMALS: normocephalic and atraumatic HEAD & SCALP: normal to inspection, normocephalic and atraumatic Neck/C-Spine: COMMON NORMALS: full ROM, no lymphadenopathy, supple and no meningeal signs Chest: COMMONS NORMALS: normal inspection of the chest and normal palpation of entire chest wall Resp: COMMON NORMALS: normal respiratory effort and clear to auscultation bilaterally AUSCULTATION: clear to auscultation bilaterally Cardio: COMMON NORMALS: regular rate and regular rhythm RATE: regular rate RHYTHM: regular rhythm GI: COMMON NORMALS: Normal to inspection, nondistended, normoactive bowel sounds present, Soft to palpation, non-tender, No hepatosplenomegaly present and no masses PALPATION: Yes Soft to palpation and Yes No hepatosplenomegaly present : COMMON NORMALS: Yes no CVA tenderness BLADDER/KIDNEY EXAM: Yes no CVA tenderness Back/Pelvis: COMMON NORMALS: no CVA tenderness and thoracic and lumbar spine normal to inspection Extremity: COMMON NORMALS: normal to inspection, capillary refill normal, no clubbing, cyanosis or edema, no calf tenderness and no pedal edema GENERAL: Y es normal exam except as noted Neuro: LIONEL COMA SCALE: document GCS findings Karval coma scale eye opening: Spontaneous Karval coma scale verbal response: Orientated Lionel coma scale motor response: Obey commands Karval coma scale total score: 15 COMMON NORMALS: patient oriented x3, moves all extremities, no focal motor deficits and no sensory deficits noted SENSORIUM/ORIENTATION: Yes alert, Yes oriented to person, Yes oriented to place and Yes oriented to time MENINGEAL SIGNS: Yes no meningeal signs Skin: COMMON NORMALS: no rashes or lesions noted GENERAL SKIN EXAM: no rashes or lesions noted Course 2 Vital Signs: Vital signs: Vital Signs Temperature 98.2 F 03/20/25 18:04 Pulse Rate 77 03/20/25 21:50 Respiratory Rate 17 03/20/25 19:23 Blood Pressure 138/79 03/20/25 21:50 Pulse Oximetry 99 03/20/25 21:50 Oxygen Delivery Me thod Room Air 03/20/25 19:59 MDM - Chest Pain Medical Decision Making Patient here with a complaint of chest pain. This has resolved/significantly improved during this stay. His vital signs are stable. Baseline and 2-hour troponins are unremarkable. EKGs are nonischemic. CXR is unremarkable. Blood work including CBC, CMP, troponins, BNP, D-dimer are all unremarkable. At this time patient will be allowed discharge from the emergency department. I will have case management set him with cardiology for further evaluation. Return precautions discussed. Differential Diagnosis Likely acute massive pulmonary embolism and acute myocardial infarction Medical Records I reviewed the patient's medical records. Lab Data I reviewed the patient's lab results. 03/20/25 19:10 03/20/25 19:10 Radiology Impressions Chest X-Ray 03/20/25 18:24 IMPRESSION: No acute findings. Laboratory Results WBC 11.52 10^3/uL (3.29-11.43) H 03/20/25 19:10 RBC 5.05 10^6/uL (3.85-5.65) 03/20/25 19:10 Hgb 15.60 g/dL (11.27-16.99) 03/20/25 19:10 Hct 45.7 % (37-53) 03/20/25 19:10 MCV 90.5 fl (82-101) 03/20/25 19:10 MCH 30.9 pg (27-33) 03/20/25 19:10 MCHC 34.1 g/dL (30-55) 03/20/25 19:10 RDW 12.6 % (12.1-15.1) 03/20/25 19:10 Plt Count 345 10^3/cmm (157-399) 03/20/25 19:10 MPV 9.5 fL (7.4-10.4) 03/20/25 19:10 Neut % (Auto) 53.2 % 03/20/25 19:10 Lymph % (Auto) 27.2 % 03/20/25 19:10 [place] % (Auto) 8.7 % 03/20/25 19:10 Eos % (Auto) 9.4 % 03/20/25 19:10 Baso % (Auto) 1.1 % 03/20/25 19:10 Neut # (Auto) 6.13 10^3/uL (1.8-7.7) 03/20/25 19:10 Lymph # (Auto) 3.1 10^3/uL (0.8-4.8) 03/20/25 19:10 [place] # (Auto) 1.0 10^3/uL (0.2-0.9) H 03/20/25 19:10 Eos # (Auto) 1.1 10^3/uL (0.0-0.8) H 03/20/25 19:10 Baso # (Auto) 0.1 10^3/uL (0.0-0.1) 03/20/25 19:10 Nucleated RBC % (auto) 0 % 03/20/25 19:10 Nucleated RBCs # 0.0 /100WBC 03/20/25 19:10 D-Dimer 0.39 ug/mLFEU (0-0.59) 03/20/25 19:10 Sodium 141 mmol/L (136-145) 03/20/25 19:10 Potassium 4.4 mmol/L (3.5-5.1) 03/20/25 19:10 Chloride 107 mmol/L (98-107) 03/20/25 19:10 Carbon Dioxide 25 mmol/L (22-29) 03/20/25 19:10 Anion Gap 13.4 (5-19) 03/20/25 19:10 BUN 8 mg/dL (6-20) 03/20/25 19:10 Creatinine 0.6 mg/dL (0.7-1.2) L 03/20/25 19:10 GFR Calculation 143.2 mL/min (90-130) H 03/20/25 19:10 Glucose 98 mg/dL (65-115) 03/20/25 19:10 Calculated Osmolality 290 mOsm/kg (285-295) 03/20/25 19:10 Calcium 9.1 mg/dL (8.5-10.5) 03/20/25 19:10 Total Bilirubin 0.4 mg/dL (0.15-1.2) 03/20/25 19:10 AST 16 U/L (0-40) 03/20/25 19:10 ALT 25 U/L (0-41) 03/20/25 19:10 Alkaline Phosphatase 104 U/L (40-130) 03/20/25 19:10 Troponin T Baseline 9 ng/L (0-15) 03/20/25 19:10 Troponin T 120 Minute 6.37 ng/L (0-15) 03/20/25 21:09 Delta Troponin T -2.63 ABS# (0-10) L 03/20/25 21:09 NT-Pro-B Natriuret Pep 93 pg/mL (0-125) 03/20/25 19:10 Total Protein 7.0 g/dL (6.6-8.7) 03/20/25 19:10 Albumin 4.4 g/dL (3.5-5.2) 03/20/25 19:10 Globulin 2.6 g/dL (1.3-4.6) 03/20/25 19:10 All radiology interpretation(s) finalized by discharge Discharge Plan Discharge Patient Disposition: Home Clinical Impression: Atypical chest pain Condition: Stable Prescriptions: No Action Ventolin HFA 90 mcg/actuation HFA aerosol inhaler 1 inh inhalation QID PRN (Reason: Shortness Of Breath) Qty: 18 6RF lisinopril 20 mg tablet 20 mg PO DAILY Qty: 30 1RF nitroglycerin 0.4 mg tablet, sublingual 0.4 mg sublingual Q5M PRN (Reason: Chest Pain) Qty: 20 0RF Dulera 100-5 mcg/actuation HFA aerosol inhaler 2 puff inhalation DAILY montelukast [Singulair] 10 mg tablet 10 mg PO DAILY Qty: 30 6RF Discharge Orders: Discharge ED (Routine); Ordered 03/20/25 Ordered By: Kim Parry Referrals: Sasha Roque DO [Primary Care Provider, Family Practice] Patient Instructions: Patient Portal & Barrett Instructions Activity Restrictions/Additional Instructions: As we discussed, we have case management set you up with a follow-up appointment with cardiology for further evaluation. Continue plan to follow-up with pulmonology/CT imaging. You may return to the emergency department at anytime for any further concerns you may have. Print Language: Sammarinese Coding Level of Care Code ED Business Advisor for Chg Fwd Heart Score HEART Score Components History: Moderately Suspicious EKG: Normal Age: 45-64 yrs Risk Factors: >/=3 Risk Factors (only 3+ based on provided hx of previous TN although I cannot find any documentation to support this; otherwise he would be a 1-2 risk factor) Troponin: Baseline Trop <16 ng/L HEART Score RESULT HEART Score: 4
[2025-03-20 19:20] LABS: Hematocrit 45.7 % (37-53); Hemoglobin 15.60 g/dL (11.27-16.99); Mean Corpuscular HGB Conc 34.1 g/dL (30-55); Mean Corpuscular Hemoglobin 30.9 pg (27-33); Mean Corpuscular Volume 90.5 fl (82-101); Nucleated Red Blood Cells % 0 %; Platelet Count 345 10^3/cmm (157-399); Red Blood Count 5.05 10^6/uL (3.85-5.65); White Blood Count 11.52 10^3/uL (3.29-11.43)
[2025-03-20 19:23] VITALS: RESP 17; O2SAT 96
[2025-03-20] MEDS: morphine 4 mg/mL SDV 1 mL IVP (19:23)
[2025-03-20] MEDS: ondansetron 2 mg/ML SDV 2 mL 4 MG IVP (19:24)
[2025-03-20 19:48] LABS: Troponin(5th) Baseline 9 ng/L (0-15)
[2025-03-20 19:56] LABS: Alanine Aminotransferase 25 U/L (0-41); Albumin Level 4.4 g/dL (3.5-5.2); Alkaline Phosphatase 104 U/L (40-130); Aspartate Amino Transferase 16 U/L (0-40); Blood Urea Nitrogen 8 mg/dL (6-20); Calcium 9.1 mg/dL (8.5-10.5); Carbon Dioxide 25 mmol/L (22-29); Chloride 107 mmol/L (98-107); Globulin 2.6 g/dL (1.3-4.6); Glucose 98 mg/dL (65-115); NT Pro B Type Natriuretic Pept 93 pg/mL (0-125); Osmolality Calculated 290 mOsm/kg (285-295); Sodium 141 mmol/L (136-145); Total Protein 7.0 g/dL (6.6-8.7)
[2025-03-20 19:59] VITALS: BP 142/93; PULSE 77; O2SAT 93
[2025-03-20 20:04] LABS: Anion Gap 13.4 (5-19); Potassium 4.4 mmol/L (3.5-5.1)
--- NOTE | 2025-03-20 20:24 | ECG_ITS ---
[facility]25-[facility]20 Pat Name: Ricci Brock Department: Room: Gender: Male System Manager: : 1975 Requested By: Kim Parry Order Number: [id number] Armenta MD: Erich Diallo M.D. Measurements Intervals [place] Rate: 92 P: 23 VA: 140 QRS: 0 QRSD: 88 T: 39 QT: 330 QTc: 409 Interpretive Statements SINUS RHYTHM POSSIBLE LEFT ATRIAL ENLARGEMENT [-0.1mV P-WAVE IN V1/V2] POSSIBLE LEFT VENTRICULAR HYPERTROPHY [VOLTAGE CRITERIA PLUS LAE OR QRS WIDENING] Compared to ECG 03/20/2025 18:08:52 No significant changes Electronically Signed On 03-21-2025 10:42:35 [employer]QU[employer] RESEARCH ASSOCIATE by Erich Diallo M.D. [email or web address]
[2025-03-20 21:36] LABS: Troponin 5 2HR 6.37 ng/L (0-15)
[2025-03-20 21:38] LABS: Troponin 5 2HR Delta -2.63 ABS# (0-10)
[2025-03-20 21:50] VITALS: BP 138/79; PULSE 77; O2SAT 99
--- NOTE | 2025-03-21 09:37 | DCPLANNER ---
messaged heart care for er f/u
== END 2025-03-20 21:51 | disposition home or self-care (01) ==
PROVIDERS: Emergency Provider Physician Assistant; PCP Family Medicine
DX: R07.89 Other chest pain (principal); I10 Essential (primary) hypertension
CPT/HCPCS: 36415; 71045; 80053; 83880; 84484; 85025; 85378; 93005; 96374; 96375; 99285; J2270; J2405; J9999

== ENCOUNTER 2025-03-28 13:50 | Outpatient (CLI) | payer BC, MEDICAID, SELFPAY ==
--- NOTE | 2025-03-28 14:30 | CT_ITS ---
WS: [id number] CT chest wo con [id number] HISTORY: lung nodules TECHNIQUE: Axial imaging performed through the thorax. Coronal and sagittal reformats are submitted. All CT scans at [facility] use at least one of these dose optimization techniques: automated exposure control; mA and/or kV adjustment per patient size (includes targeted exams where dose is matched to clinical indication); or iterative reconstruction. CONTRAST: None DLP: 499.57 mGy.cm COMPARISON: Chest CT 07/15/2023 and 05/25/2021, PET/CT 06/16/2021 Lungs and central airway: Well aerated lungs. Mild hyperexpansion and increased AP diameter. Long-term stability slightly lobulated 11 mm noncalcified nodule in the LEFT lower lobe. Positive on PET/CT from 06/16/2021 but has not significantly increased in size. There is an additional 3 mm nodule LEFT upper lobe which is stable. No new mass or nodule. Pleura: Normal. No pleural effusion. Heart and pericardium: Normal size heart with no pericardial effusion. Mediastinum and betsy: No mediastinum or hilar adenopathy. Vessels: Mild atherosclerosis aorta. Normal size pulmonary artery. Chest wall and lower neck: No soft tissue masses. Upper abdomen: Small hiatal hernia. No adrenal mass. Osseous structures: No destructive process. CT/CT chest wo con [id number] IMPRESSION: 1. Long-term stability 11 mm solid nodule LEFT lower lobe. Nodule was positive on PET/CT from 06/16/2021 but there is been no significant increase in size. 2. No mediastinal or hilar adenopathy identified on this unenhanced exam.
== END 2025-03-28 13:51 | disposition home or self-care (01) ==
LOC: RAD 13:51
PROVIDERS: PCP Family Medicine; Visit Provider Internal Medicine
DX: J44.9 Chronic obstructive pulmonary disease, unspecified (principal); R91.1 Solitary pulmonary nodule
CPT/HCPCS: 71250